=== PATIENT | female | born 1970 | race Caucasian/White ===

== ENCOUNTER 2020-10-14 08:13 | Emergency (ER) | payer BC, OTHER ==
[~2020-10-14] VITALS: Ht 160 cm; Wt 72.5 kg
[2020-10-14] MEDS ORDERED: advil PO (08:41)
[2020-10-14] MEDS ORDERED: BENA25CA4 PO (08:41)
[2020-10-14] MEDS ORDERED: AZIT-12 (08:41)
[2020-10-14] MEDS ORDERED: IBUP200C25 PO (08:42)
[2020-10-14] MEDS ORDERED: LIDOCAINE 5% (LIDODERM) PATCH TD ONE (09:15)
--- NOTE | 2020-10-14 09:29 | REP ---
INDICATION: midline and left low back pain. COMPARISON: None. FINDINGS: Five views of the lumbosacral spine show no acute fracture, dislocation or subluxation. The intervertebral disc spaces are symmetric and well maintained. There is no spondylolysis or spondylolisthesis. The pedicles are intact bilaterally and there is no destructive osseous lesion. IMPRESSION: Unremarkable lumbosacral spine series. <Electronically signed by Taye Chopra > 10/14/20 0934
[2020-10-14] MEDS ORDERED: LIDO5DIS41 TOP (10:08)
[2020-10-14] MEDS ORDERED: CYCL5TAB PO (10:08)
[2020-10-14 10:16] VITALS: BP 136/77
[2020-10-14] MEDS ORDERED: **NOTE PATIENT COMMENT** MISC XX SCH (21:00)
== END 2020-10-14 10:18 | disposition home or self-care (01) ==
LOC: M ED 08:13
DX: S39.012A Strain of muscle, fascia and tendon of lower back, initial encounter (principal); X50.1XXA Overexertion from prolonged static or awkward postures, initial encounter; Y92.89 Other specified places as the place of occurrence of the external cause; M54.9 Dorsalgia, unspecified; K58.9 Irritable bowel syndrome, unspecified; D50.9 Iron deficiency anemia, unspecified; Z87.891 Personal history of nicotine dependence; Z88.0 Allergy status to penicillin; Z88.2 Allergy status to sulfonamides; Z88.8 Allergy status to other drugs, medicaments and biological substances; Z79.899 Other long term (current) drug therapy

== ENCOUNTER → 2021-10-07 | Outpatient (CLI) | payer BC ==
[~2021-10-07] MED LIST: AZIT-12; BENA25CA4 PO; CYCL5TAB PO; IBUP200C25 PO; LIDO5DIS41 TOP; advil PO
[2021-10-07 09:53] LABS: HEMATOCRIT 41.2 % (36.0-47.0); HEMOGLOBIN 13.8 g/dl (12.0-15.5); MEAN CORPUSCULAR HEMOGLOBIN 29.4 pg (27.0-33.0); MEAN CORPUSCULAR HGB CONC 33.5 g/dl (32.0-36.5); MEAN CORPUSCULAR VOLUME 87.7 fl (80.0-96.0); PLATELET COUNT, AUTOMATED 310 10^3/uL (150-450); WHITE BLOOD COUNT 7.9 10^3/uL (4.0-10.0)
[2021-10-07 10:12] LABS: HEMOGLOBIN A1c 5.2 %
[2021-10-07 10:31] LABS: ALBUMIN 3.8 GM/DL (3.2-5.2); ALT/SGPT 30 U/L (12-78); BILIRUBIN,TOTAL 0.3 MG/DL (0.2-1.0); BLOOD UREA NITROGEN 12 MG/DL (7-18); CALCIUM LEVEL 8.9 MG/DL (8.5-10.1); CARBON DIOXIDE LEVEL 26 MEQ/L (21-32); CHLORIDE LEVEL 108 MEQ/L (98-107); CHOLESTEROL LEVEL 200 MG/DL (<200); CHOLESTEROL RISK RATIO 5.714 (<5); CREATININE FOR GFR 0.69 MG/DL (0.55-1.30); GLOMERULAR FILTRATION RATE > 60.0 (>58); GLUCOSE, FASTING 98 MG/DL (70-100); HDL CHOLESTEROL 35 MG/DL (>40); LDL CHOLESTEROL 123 MG/DL (<100); NON-HDL-C 165 MG/DL; POTASSIUM SERUM 3.9 MEQ/L (3.5-5.1); SODIUM LEVEL 141 MEQ/L (136-145); THYROXINE (T4) 8.3 UG/DL (4.5-12.0); TOTAL PROTEIN 6.7 GM/DL (6.4-8.2); TRIGLYCERIDES LEVEL 209 MG/DL (<150)
--- NOTE | 2021-10-07 11:16 | REP ---
INDICATION: ANEMIA / LABS 1ST / EKG 2ND / RAD 3RD. COMPARISON: 08/08/2013 TECHNIQUE: PA lateral FINDINGS: The lung patel are well inflated. The heart, mediastinal hilar contours are normal. The aorta and airway are intact. There is no infiltrate, effusion, atelectasis or mass. Bony thorax shows no focal abnormality. No free air under the diaphragm. IMPRESSION: 1. No acute cardiopulmonary disease. <Electronically signed by Taye Chopra > 10/07/21 1110
--- NOTE | 2021-10-07 15:48 | ECGEPIP ---
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 Electronically Signed on 10-07-2021 15:48:39 EDT by Primo Kumar
[2021-10-09 10:45] LABS: TOTAL 25(OH) VITAMIN D 23.3 NG/ML (30.0-100.0)
[2021-10-09 10:46] LABS: TOTAL T3 128.7 NG/DL (60.0-181.0)
== END ==
LOC: M LAB 09:05
PROVIDERS: ATTEND Family Medicine
DX: D64.9 Anemia, unspecified (principal)

== ENCOUNTER 2021-11-02 08:27 | Inpatient (IN) | payer BC ==
[~2021-11-02] VITALS: Ht 160 cm; Wt 69.5 kg
--- OUTSIDE RECORDS SUMMARY | 2021-11-02 08:33 | CCD | Continuity of Care Document ---
Author Author Edith DELEON MSPT Organization Unknown Address [address] [place] [address] Phone [phone] Care Team Providers Care Hydroelectric Plant Technician Name Role Phone Holly Brothers SAW AUTM [phone] Mahesh Monaco MD AUTM [phone] Faiza Gupta MD AUTM Mahesh Monaco MD AUTM [phone] Problems Active Problems Provider Date Patellar tendonitis Onset: 09/22/1999 Social History Type Date Description Comments Sex Unknown ETOH Use Denies alcohol use Tobacco Use Start: Unknown End: Unknown Patient is a former smoker Smoking Status Reviewed: 08/01/21 Patient is a former smoker Allergies and adverse reactions Active Allergies Criticality Reaction | Severity Comments Date sulfa drugs Unable to assess criticality 07/05/2015 Motrin Unable to assess criticality 07/05/2015 Naproxen Unable to assess criticality 07/05/2015 Aspirin Unable to assess criticality 07/05/2015 Augmentin Unable to assess criticality 04/10/2021 NSAIDS Unable to assess criticality 04/10/2021 Medications Active Medications SIG Qnty Indications Ordering Provide r Date Tylenol With Codeine #3 300-30mg T ablets 1-2 tabs po every 4-6 hours as needed pain after surgery(Please DO Not Fill Until 06/22/2021) 30tabs Flaco Martinez MD 06/22/2021 Euflexxa 20mg/2ML Soln Prefill Syr cecil left knee #1 iid/tf 12/15/2020, left knee #2 iid/sujit,left knee#3 Iid/TF 2/8/21 Zach Cuevas MD 12/15/2020 Fluticasone Propionate 50mcg/Act Suspension Unknown Benzonatate 200mg Capsules Gena Parker PA Albuterol Sulfate HFA 108(90Base) mcg/Act Aerosol Inhale Two Puffs By Mouth Every 4 Hours as Needed Unknown Immunizations Description No Information Available Vital Signs Date Vital Result Comment 09/07/2021 1:38pm Body Temperature 97.1 F Height 63 inches 5'3" Weight 161.50 lb BMI (Body Mass Index) 28.6 kg/m2 06/26/2021 3:18pm Body Temperature 96.9 F Results Test Acquired Date Facility Test Result H/L Range Note Laboratory test finding 05/25/2021 In House Covid Rapid Testing NEGATIVE Procedures Date Code Description Status 10/05/2021 67933 Therapeutic Procedure, Each 15 M inutes Completed 10/05/2021 78860 Therapeutic Procedure, Each 15 M inutes Completed 10/03/2021 18332 Therapeutic Procedure, Each 15 M inutes Completed 10/03/2021 06234 Therapeutic Procedure, Each 15 M inutes Completed 09/26/2021 75056 Therapeutic Procedure, Each 15 M inutes Completed 09/26/2021 49096 Therapeutic Procedure, Each 15 M inutes Completed 09/21/2021 81045 Therapeutic Procedure, Each 15 M inutes Completed 09/21/2021 04145 Therapeutic Procedure, Each 15 M inutes Completed 08/29/2021 79697 Therapeutic Procedure, Each 15 M inutes Completed 08/29/2021 52799 Therapeutic Procedure, Each 15 M inutes Completed 08/24/2021 33239 Electrical Stimulati on Manual, Each 15 Min, Constant Attendance Completed 08/24/2021 46606 Hot Or Cold Packs Completed 08/24/2021 48158 Therapeutic Procedure, Each 15 M inutes Completed 08/24/2021 42235 Therapeutic Procedure, Each 15 M inutes Completed 08/22/2021 73677 Therapeutic Procedure, Each 15 M inutes Completed 08/22/2021 62968 Therapeutic Procedure, Each 15 M inutes Completed 08/22/2021 03770 Electrical Stimulati on Manual, Each 15 Min, Constant Attendance Completed 08/22/2021 27546 Hot Or Cold Packs Completed 08/17/2021 98190 Therapeutic Procedure, Each 15 M inutes Completed 08/17/2021 95989 Therapeutic Procedure, Each 15 M inutes Completed 08/17/2021 98209 Electrical Stimulati on Manual, Each 15 Min, Constant Attendance Completed 08/15/2021 63296 Therapeutic Procedure, Each 15 M inutes Completed 08/15/2021 75804 Hot Or Cold Packs Completed 08/15/2021 71151 Therapeutic Procedure, Each 15 M inutes Completed 08/15/2021 82579 Electrical Stimulati on Manual, Each 15 Min, Constant Attendance Completed 08/10/2021 45260 Therapeutic Procedure, Each 15 M inutes Completed 08/10/2021 42978 Therapeutic Procedure, Each 15 M inutes Completed 08/10/2021 21026 Electrical Stimulati on Manual, Each 15 Min, Constant Attendance Completed 08/10/2021 49469 Hot Or Cold Packs Completed 08/08/2021 28553 Hot Or Cold Packs Completed 08/08/2021 42906 Electrical Stimulati on Manual, Each 15 Min, Constant Attendance Completed 08/08/2021 78409 Therapeutic Procedure, Each 15 M inutes Completed 08/08/2021 70298 Therapeutic Procedure, Each 15 M inutes Completed 08/03/2021 45570 Therapeutic Procedure, Each 15 M inutes Completed 08/03/2021 73375 Therapeutic Procedure, Each 15 M inutes Completed 08/01/2021 98099 Therapeutic Procedure, Each 15 M inutes Completed 08/01/2021 01454 Therapeutic Procedure, Each 15 M inutes Completed 08/01/2021 75430 Electrical Stimulati on Manual, Each 15 Min, Constant Attendance Completed 08/01/2021 03475 Hot Or Cold Packs Completed 07/27/2021 82648 Hot Or Cold Packs Completed 07/27/2021 86135 Electrical Stimulati on Manual, Each 15 Min, Constant Attendance Completed 07/27/2021 24022 Therapeutic Procedure, Each 15 M inutes Completed 07/27/2021 00194 Therapeutic Procedure, Each 15 M inutes Completed 07/25/2021 28173 Therapeutic Procedure, Each 15 M inutes Completed 07/25/2021 13974 Electrical Stimulati on Manual, Each 15 Min, Constant Attendance Completed 07/25/2021 07319 Hot Or Cold Packs Completed 07/25/2021 61072 Therapeutic Procedure, Each 15 M inutes Completed 07/20/2021 38453 Re-Eval Of PT Establ ished Plan Of Care 20Mins Face To Face PT/Fam Completed 07/20/2021 26237 Therapeutic Procedure, Each 15 M inutes Completed 07/20/2021 57666 Therapeutic Procedure, Each 15 M inutes Completed 07/20/2021 46838 Electrical Stimulati on Manual, Each 15 Min, Constant Attendance Completed 07/20/2021 75306 Hot Or Cold Packs Completed 07/18/2021 01325 Therapeutic Procedure, Each 15 M inutes Completed 07/18/2021 84938 Electrical Stimulati on Manual, Each 15 Min, Constant Attendance Completed 07/18/2021 03764 Therapeutic Procedure, Each 15 M inutes Completed 07/13/2021 11656 Therapeutic Procedure, Each 15 M inutes Completed 07/13/2021 12491 Therapeutic Procedure, Each 15 M inutes Completed 07/13/2021 26542 Electrical Stimulati on Manual, Each 15 Min, Constant Attendance Completed 07/13/2021 06452 Hot Or Cold Packs Completed 07/11/2021 82063 Hot Or Cold Packs Completed 07/11/2021 89797 Electrical Stimulati on Manual, Each 15 Min, Constant Attendance Completed 07/11/2021 14636 Therapeutic Procedure, Each 15 M inutes Completed 07/11/2021 60198 Therapeutic Procedure, Each 15 M inutes Completed 07/06/2021 42959 Therapeutic Procedure, Each 15 M inutes Completed 07/06/2021 55377 Therapeutic Procedure, Each 15 M inutes Completed 07/06/2021 43366 Electrical Stimulati on Manual, Each 15 Min, Constant Attendance Completed 07/06/2021 39547 Hot Or Cold Packs Completed 07/04/2021 19540 Manual Therapy Each 15 Minutes C ompleted 07/04/2021 08241 Therapeutic Procedure, Each 15 M inutes Completed 07/04/2021 99566 Therapeutic Procedure, Each 15 M inutes Completed 07/04/2021 97539 Hot Or Cold Packs Completed 06/30/2021 89904 Therapeutic Procedure, Each 15 M inutes Completed 06/30/2021 74019 Hot Or Cold Packs Completed 06/30/2021 76558 Electrical Stimulati on Manual, Each 15 Min, Constant Attendance Completed 06/30/2021 39997 Therapeutic Procedure, Each 15 M inutes Completed 06/28/2021 55365 Therapeutic Procedure, Each 15 M inutes Completed 06/28/2021 05839 Therapeutic Procedure, Each 15 M inutes Completed 06/28/2021 35949 Electrical Stimulati on Manual, Each 15 Min, Constant Attendance Completed 06/28/2021 23238 Hot Or Cold Packs Completed 06/26/2021 57320 Physical Therapy Eval - Low Comp lexity Completed 06/22/2021 99861 Arthroscopy Knee W/M eniscectomy Inc Chondroplasty (Med Or Lateral Completed 04/10/2021 83932 Office/Outpatient Established Mo d MDM 30-39 Min Completed Medical Devices Description No Information Available Encounters Type Date Location Provider Dx Diagnosis Office Visit 09/07/2021 1:15p Alfred Chin PA-C Z4 7.89 Encounter for other orthopedic aftercare M25.562 Pain in left knee Office Visit 08/24/2021 5:15p Alfred Chin PA-C Z4 7.89 Encounter for other orthopedic aftercare M25.562 Pain in left knee Office Visit 08/01/2021 5:15p Alfred Chin PA-C Z4 7.89 Encounter for other orthopedic aftercare Office Visit 07/03/2021 4:30p Alfred Chin PA-C Z4 7.89 Encounter for other orthopedic aftercare Office Visit 06/26/2021 3:15p Alfred Martinez MD Z47.89 Encounter for other orthopedic aftercare Office Visit 04/10/2021 2:15p Alfred Martinez MD M17.12 Unilateral primary osteoarthritis, left knee M94.262 Chondromalacia, left knee Assessments Date Code Description Provider 10/05/2021 M25.562 Pain in left knee Madonna izquierdo, BAUDILIO 10/05/2021 Z47.89 Encounter for other orthopedic a ftercare Madonna Deleon, BAUDILIO 10/03/2021 M25.562 Pain in left knee Madonna izquierdo, MSPT 10/03/2021 Z47.89 Encounter for other orthopedic a ftercare Madonna Deleon, MSPT 09/26/2021 M25.562 Pain in left knee Madonna Van felecia, MSPT 09/26/2021 Z47.89 Encounter for other orthopedic a ftercare Madonna Deleon, MSPT 09/21/2021 M25.562 Pain in left knee Madonna Van felecia, MSPT 09/21/2021 Z47.89 Encounter for other orthopedic a ftercare Madonna Deleon, MSPT 09/07/2021 Z47.89 Encounter for other orthopedic a ftercare Jimenez Chin PA-C 09/07/2021 M25.562 Pain in left knee Jimenez polo PA-C 08/29/2021 M25.562 Pain in left knee Madonna Menon Rehan izuqierdo, MSPT 08/29/2021 Z47.89 Encounter for other orthopedic a ftercare Madonna Deleon, MSPT 08/24/2021 Z47.89 Encounter for other orthopedic a ftercare Jimenez Chin PA-C 08/24/2021 M25.562 Pain in left knee Jimenez polo PA-C 08/24/2021 Z47.89 Encounter for other orthopedic a ftercare Madonna Deleon, MSPT 08/22/2021 Z47.89 Encounter for other orthopedic a ftercare Madonna Deleon, MSPT 08/17/2021 Z47.89 Encounter for other orthopedic a ftercare Júnior Damon P.T. 08/15/2021 Z47.89 Encounter for other orthopedic a ftercare Madonna Deleon, MSPT 08/10/2021 Z47.89 Encounter for other orthopedic a ftercare Madonna Deleon, MSPT 08/08/2021 Z47.89 Encounter for other orthopedic a ftercare Madonna Deleon, MSPT 08/03/2021 Z47.89 Encounter for other orthopedic a ftercare Madonna Deleon, MSPT 08/01/2021 Z47.89 Encounter for other orthopedic a ftercare Jimenez Chin PA-C 08/01/2021 Z47.89 Encounter for other orthopedic a ftercare Madonna M. Vespa, MSPT 07/27/2021 Z47.89 Encounter for other orthopedic a ftercare Madonna M. Vespa, MSPT 07/25/2021 Z47.89 Encounter for other orthopedic a ftercare Júnior Damon P.T. 07/20/2021 Z47.89 Encounter for other orthopedic a ftercare Madonna M. Vespa, MSPT 07/18/2021 Z47.89 Encounter for other orthopedic a ftercare Madonna M. Vespa, MSPT 07/13/2021 Z47.89 Encounter for other orthopedic a ftercare [facility] 07/11/2021 Z47.89 Encounter for other orthopedic a ftercare Madonna M. Vespa, MSPT 07/06/2021 Z47.89 Encounter for other orthopedic a ftercare Madonna M. Vespa, MSPT 07/04/2021 Z47.89 Encounter for other orthopedic a ftercare Madonna M. Vespa, MSPT 07/03/2021 Z47.89 Encounter for other orthopedic a ftercare Jimenez Chin PA-C 06/30/2021 Z47.89 Encounter for other orthopedic a ftercare Madonna M. Vespa, MSPT 06/28/2021 Z47.89 Encounter for other orthopedic a ftercare Madonna M. Vespa, MSPT 06/26/2021 Z47.89 Encounter for other orthopedic a ftercare Madonna M. Vespa, MSPT 06/26/2021 Z47.89 Encounter for other orthopedic a ftercare Flaco Martinez MD 06/22/2021 M23.262 Derangement of other lateral meniscus due to old tear or injury, left knee Flaco Martinez MD 06/22/2021 L90.5 Scar conditions and fibrosis of skin Flaco Martinez MD 06/19/2021 M23.262 Derangement of other lateral meniscus due to old tear or injury, left knee Flaco Martinez MD 06/19/2021 Z01.818 Encounter for other preprocedura l examination Flaco Martinez MD 06/19/2021 Z01.818 Encounter for other preprocedura l examination Lab 06/19/2021 Z20.828 Contact with and (sultana spected) exposure to other viral communicable diseases Flaco Martinez MD 06/19/2021 Z20.828 Contact with and (sultana spected) exposure to other viral communicable diseases Lab 05/25/2021 Z20.828 Contact with and (sultana spected) exposure to other viral communicable diseases Flaco Martinez MD 04/10/2021 M17.12 Unilateral primary osteoarthriti s, left knee Flaco Martinez MD 04/10/2021 M94.262 Chondromalacia, left knee Flaco Martinez MD Plan of Treatment Future Appointment(s):* 10/12/2021 4:30 pm - MINDY AlvesT at Physical Therapy * 10/10/2021 4:30 pm - MINDY AlvesT at Physical Therapy Functional Status Description No Information Available Mental Status Description No Information Available Referrals Refer to Reason for Referral Status Appt Date January Cuevas MD PT LT KNEE WRITTEN AUTH PASSED TO PT DE PT. LS Created [facility] [address] [phone] Jimenez Chin, PA-C PT LT KNEE OK TO [facility] 2ND SET AFTER SURGERY. PASSED TO PT DEPT. LS Created [address] [place] [address] [phone] Flaco Martinez MD PT LT KNEE OK TO [facility] 1ST SET AFTER SURGERY. L S Created [facility] [address] [address] [phone] Flaco Martinez MD CRUTCHES OK TO SUPPLY HERE. LS Created [facility] [place] [id number] [phone] Flaco Martinez MD SURGERY LT KNEE DX ARTHROSCO PY WRITTEN AUTH PASSED TO SURGERY. LS Created [facility] [place] [address] [phone]
--- OUTSIDE RECORDS SUMMARY | 2021-11-02 08:33 | CCD | Continuity of Care Document ---
Author Author Edith DELEON MSPT Organization Unknown Address [address] [place] [address] Phone [phone] Care Team Providers Care Culvert Installer Name Role Phone Holly Brothers SAW AUTM [phone] Mahesh Monaco MD AUTM [phone] Faiza Gupta MD AUTM Mahesh Monaco MD AUTM [phone] Problems Active Problems Provider Date Patellar tendonitis [...] NEGATIVE Procedures Date Code Description Status 10/05/2021 09472 Therapeutic Procedure, Each 15 M inutes Completed 10/05/2021 91294 Therapeutic Procedure, Each 15 M inutes Completed 10/03/2021 79042 Therapeutic Procedure, Each 15 M inutes Completed 10/03/2021 48438 Therapeutic Procedure, Each 15 M inutes Completed 09/26/2021 76989 Therapeutic Procedure, Each 15 M inutes Completed 09/26/2021 88326 Therapeutic Procedure, Each 15 M inutes Completed 09/21/2021 50533 Therapeutic Procedure, Each 15 M inutes Completed 09/21/2021 88570 Therapeutic Procedure, Each 15 M inutes Completed 08/29/2021 75652 Therapeutic Procedure, Each 15 M inutes Completed 08/29/2021 27014 Therapeutic Procedure, Each 15 M inutes Completed 08/24/2021 60337 Electrical Stimulati on Manual, Each 15 Min, Constant Attendance Completed 08/24/2021 08520 Hot Or Cold Packs Completed 08/24/2021 65889 Therapeutic Procedure, Each 15 M inutes Completed 08/24/2021 08254 Therapeutic Procedure, Each 15 M inutes Completed 08/22/2021 55775 Therapeutic Procedure, Each 15 M inutes Completed 08/22/2021 92754 Therapeutic Procedure, Each 15 M inutes Completed 08/22/2021 79849 Electrical Stimulati on Manual, Each 15 Min, Constant Attendance Completed 08/22/2021 03626 Hot Or Cold Packs Completed 08/17/2021 40806 Therapeutic Procedure, Each 15 M inutes Completed 08/17/2021 80712 Therapeutic Procedure, Each 15 M inutes Completed 08/17/2021 50115 Electrical Stimulati on Manual, Each 15 Min, Constant Attendance Completed 08/15/2021 92486 Therapeutic Procedure, Each 15 M inutes Completed 08/15/2021 01300 Hot Or Cold Packs Completed 08/15/2021 68067 Therapeutic Procedure, Each 15 M inutes Completed 08/15/2021 81320 Electrical Stimulati on Manual, Each 15 Min, Constant Attendance Completed 08/10/2021 91492 Therapeutic Procedure, Each 15 M inutes Completed 08/10/2021 90285 Therapeutic Procedure, Each 15 M inutes Completed 08/10/2021 53043 Electrical Stimulati on Manual, Each 15 Min, Constant Attendance Completed 08/10/2021 65809 Hot Or Cold Packs Completed 08/08/2021 97165 Hot Or Cold Packs Completed 08/08/2021 71787 Electrical Stimulati on Manual, Each 15 Min, Constant Attendance Completed 08/08/2021 30506 Therapeutic Procedure, Each 15 M inutes Completed 08/08/2021 44700 Therapeutic Procedure, Each 15 M inutes Completed 08/03/2021 05945 Therapeutic Procedure, Each 15 M inutes Completed 08/03/2021 58566 Therapeutic Procedure, Each 15 M inutes Completed 08/01/2021 31265 Therapeutic Procedure, Each 15 M inutes Completed 08/01/2021 45786 Therapeutic Procedure, Each 15 M inutes Completed 08/01/2021 82312 Electrical Stimulati on Manual, Each 15 Min, Constant Attendance Completed 08/01/2021 59476 Hot Or Cold Packs Completed 07/27/2021 27868 Hot Or Cold Packs Completed 07/27/2021 49186 Electrical Stimulati on Manual, Each 15 Min, Constant Attendance Completed 07/27/2021 26778 Therapeutic Procedure, Each 15 M inutes Completed 07/27/2021 83462 Therapeutic Procedure, Each 15 M inutes Completed 07/25/2021 48114 Therapeutic Procedure, Each 15 M inutes Completed 07/25/2021 16496 Electrical Stimulati on Manual, Each 15 Min, Constant Attendance Completed 07/25/2021 70324 Hot Or Cold Packs Completed 07/25/2021 49438 Therapeutic Procedure, Each 15 M inutes Completed 07/20/2021 83662 Re-Eval Of PT Establ ished Plan Of Care 20Mins Face To Face PT/Fam Completed 07/20/2021 50270 Therapeutic Procedure, Each 15 M inutes Completed 07/20/2021 72343 Therapeutic Procedure, Each 15 M inutes Completed 07/20/2021 06856 Electrical Stimulati on Manual, Each 15 Min, Constant Attendance Completed 07/20/2021 53830 Hot Or Cold Packs Completed 07/18/2021 22248 Therapeutic Procedure, Each 15 M inutes Completed 07/18/2021 83595 Electrical Stimulati on Manual, Each 15 Min, Constant Attendance Completed 07/18/2021 77128 Therapeutic Procedure, Each 15 M inutes Completed 07/13/2021 90705 Therapeutic Procedure, Each 15 M inutes Completed 07/13/2021 80485 Therapeutic Procedure, Each 15 M inutes Completed 07/13/2021 80643 Electrical Stimulati on Manual, Each 15 Min, Constant Attendance Completed 07/13/2021 72874 Hot Or Cold Packs Completed 07/11/2021 37289 Hot Or Cold Packs Completed 07/11/2021 97605 Electrical Stimulati on Manual, Each 15 Min, Constant Attendance Completed 07/11/2021 99134 Therapeutic Procedure, Each 15 M inutes Completed 07/11/2021 25195 Therapeutic Procedure, Each 15 M inutes Completed 07/06/2021 07626 Therapeutic Procedure, Each 15 M inutes Completed 07/06/2021 00271 Therapeutic Procedure, Each 15 M inutes Completed 07/06/2021 23689 Electrical Stimulati on Manual, Each 15 Min, Constant Attendance Completed 07/06/2021 01157 Hot Or Cold Packs Completed 07/04/2021 82131 Manual Therapy Each 15 Minutes C ompleted 07/04/2021 91958 Therapeutic Procedure, Each 15 M inutes Completed 07/04/2021 16444 Therapeutic Procedure, Each 15 M inutes Completed 07/04/2021 18128 Hot Or Cold Packs Completed 06/30/2021 69951 Therapeutic Procedure, Each 15 M inutes Completed 06/30/2021 38160 Hot Or Cold Packs Completed 06/30/2021 31847 Electrical Stimulati on Manual, Each 15 Min, Constant Attendance Completed 06/30/2021 47341 Therapeutic Procedure, Each 15 M inutes Completed 06/28/2021 53492 Therapeutic Procedure, Each 15 M inutes Completed 06/28/2021 46015 Therapeutic Procedure, Each 15 M inutes Completed 06/28/2021 74405 Electrical Stimulati on Manual, Each 15 Min, Constant Attendance Completed 06/28/2021 21571 Hot Or Cold Packs Completed 06/26/2021 71701 Physical Therapy Eval - Low Comp lexity Completed 06/22/2021 30206 Arthroscopy Knee W/M eniscectomy Inc Chondroplasty (Med Or Lateral Completed 04/10/2021 83801 Office/Outpatient Established Mo d MDM 30-39 Min [...] Pain in left knee Madonna Menon Rehan izquierdo, MSPT 08/29/2021 Z47.89 Encounter for other orthopedic [...] other orthopedic a ftercare Madonna M. Vespa, RUSTT 07/11/2021 Z47.89 Encounter for other orthopedic a [...] PASSED TO PT DE PT. LS Created [facility] [address] [phone] Jimenez Chin, PA-C PT LT KNEE OK TO [facility] 2ND SET AFTER SURGERY. PASSED TO PT DEPT. LS Created [address] [place] [address] [phone] Flaco Martinez MD PT LT KNEE OK TO [facility] 1ST SET AFTER SURGERY. L S Created [facility] [address] [address] [phone] Flaco Martinez MD CRUTCHES OK TO SUPPLY HERE. LS Created [facility] [place] [phone] Flaco Martinez MD SURGERY LT KNEE DX ARTHROSCO PY WRITTEN AUTH PASSED TO SURGERY. LS Created [facility] [place] [address] [phone]
--- OUTSIDE RECORDS SUMMARY | 2021-11-02 08:33 | CCD | Continuity of Care Document ---
Author Author Edith DELEON MSPT Organization Unknown Address [address] [place] [address] Phone [phone] Care Team Providers Care Handicapper [employer] Name Role Phone [employer] SAW AUTM [phone] Mahesh Monaco MD AUTM [phone] Faiza Gupta MD AUTM [phone] Mahesh Monaco MD AUTM [phone] Problems Active Problems Provider Date Patellar tendonitis [...] Testing NEGATIVE Procedures Date Code Description Status 10/12/2021 83401 Therapeutic Procedure, Each 15 M inutes Completed 10/12/2021 88312 Therapeutic Procedure, Each 15 M inutes Completed 10/10/2021 15108 Therapeutic Procedure, Each 15 M inutes Completed 10/10/2021 34535 Therapeutic Procedure, Each 15 M inutes Completed 10/05/2021 13672 Therapeutic Procedure, Each 15 M inutes Completed 10/05/2021 84438 Therapeutic Procedure, Each 15 M inutes Completed 10/03/2021 32157 Therapeutic Procedure, Each 15 M inutes Completed 10/03/2021 99318 Therapeutic Procedure, Each 15 M inutes Completed 09/26/2021 76168 Therapeutic Procedure, Each 15 M inutes Completed 09/26/2021 64446 Therapeutic Procedure, Each 15 M inutes Completed 09/21/2021 81426 Therapeutic Procedure, Each 15 M inutes Completed 09/21/2021 37389 Therapeutic Procedure, Each 15 M inutes Completed 08/29/2021 54081 Therapeutic Procedure, Each 15 M inutes Completed 08/29/2021 96864 Therapeutic Procedure, Each 15 M inutes Completed 08/24/2021 80204 Therapeutic Procedure, Each 15 M inutes Completed 08/24/2021 46219 Therapeutic Procedure, Each 15 M inutes Completed 08/24/2021 42288 Electrical Stimulati on Manual, Each 15 Min, Constant Attendance Completed 08/24/2021 87398 Hot Or Cold Packs Completed 08/22/2021 78320 Electrical Stimulati on Manual, Each 15 Min, Constant Attendance Completed 08/22/2021 72149 Hot Or Cold Packs Completed 08/22/2021 83934 Therapeutic Procedure, Each 15 M inutes Completed 08/22/2021 26580 Therapeutic Procedure, Each 15 M inutes Completed 08/17/2021 82928 Therapeutic Procedure, Each 15 M inutes Completed 08/17/2021 73752 Therapeutic Procedure, Each 15 M inutes Completed 08/17/2021 87922 Electrical Stimulati on Manual, Each 15 Min, Constant Attendance Completed 08/15/2021 22906 Therapeutic Procedure, Each 15 M inutes Completed 08/15/2021 49593 Therapeutic Procedure, Each 15 M inutes Completed 08/15/2021 98652 Electrical Stimulati on Manual, Each 15 Min, Constant Attendance Completed 08/15/2021 03367 Hot Or Cold Packs Completed 08/10/2021 07004 Therapeutic Procedure, Each 15 M inutes Completed 08/10/2021 34174 Hot Or Cold Packs Completed 08/10/2021 81498 Electrical Stimulati on Manual, Each 15 Min, Constant Attendance Completed 08/10/2021 13949 Therapeutic Procedure, Each 15 M inutes Completed 08/08/2021 06878 Therapeutic Procedure, Each 15 M inutes Completed 08/08/2021 14490 Therapeutic Procedure, Each 15 M inutes Completed 08/08/2021 22503 Electrical Stimulati on Manual, Each 15 Min, Constant Attendance Completed 08/08/2021 96135 Hot Or Cold Packs Completed 08/03/2021 33657 Therapeutic Procedure, Each 15 M inutes Completed 08/03/2021 53979 Therapeutic Procedure, Each 15 M inutes Completed 08/01/2021 71846 Hot Or Cold Packs Completed 08/01/2021 67864 Electrical Stimulati on Manual, Each 15 Min, Constant Attendance Completed 08/01/2021 28085 Therapeutic Procedure, Each 15 M inutes Completed 08/01/2021 88556 Therapeutic Procedure, Each 15 M inutes Completed 07/27/2021 21016 Therapeutic Procedure, Each 15 M inutes Completed 07/27/2021 56075 Therapeutic Procedure, Each 15 M inutes Completed 07/27/2021 42924 Electrical Stimulati on Manual, Each 15 Min, Constant Attendance Completed 07/27/2021 54395 Hot Or Cold Packs Completed 07/25/2021 75752 Therapeutic Procedure, Each 15 M inutes Completed 07/25/2021 46770 Therapeutic Procedure, Each 15 M inutes Completed 07/25/2021 10472 Electrical Stimulati on Manual, Each 15 Min, Constant Attendance Completed 07/25/2021 81240 Hot Or Cold Packs Completed 07/20/2021 74711 Therapeutic Procedure, Each 15 M inutes Completed 07/20/2021 33379 Hot Or Cold Packs Completed 07/20/2021 77108 Electrical Stimulati on Manual, Each 15 Min, Constant Attendance Completed 07/20/2021 09168 Therapeutic Procedure, Each 15 M inutes Completed 07/20/2021 59699 Re-Eval Of PT Establ ished Plan Of Care 20Mins Face To Face PT/Fam Completed 07/18/2021 28770 Therapeutic Procedure, Each 15 M inutes Completed 07/18/2021 79477 Therapeutic Procedure, Each 15 M inutes Completed 07/18/2021 92906 Electrical Stimulati on Manual, Each 15 Min, Constant Attendance Completed 07/13/2021 27232 Therapeutic Procedure, Each 15 M inutes Completed 07/13/2021 91418 Therapeutic Procedure, Each 15 M inutes Completed 07/13/2021 17458 Electrical Stimulati on Manual, Each 15 Min, Constant Attendance Completed 07/13/2021 05113 Hot Or Cold Packs Completed 07/11/2021 45988 Therapeutic Procedure, Each 15 M inutes Completed 07/11/2021 42741 Hot Or Cold Packs Completed 07/11/2021 30469 Therapeutic Procedure, Each 15 M inutes Completed 07/11/2021 25926 Electrical Stimulati on Manual, Each 15 Min, Constant Attendance Completed 07/06/2021 10326 Therapeutic Procedure, Each 15 M inutes Completed 07/06/2021 30937 Therapeutic Procedure, Each 15 M inutes Completed 07/06/2021 25001 Electrical Stimulati on Manual, Each 15 Min, Constant Attendance Completed 07/06/2021 37876 Hot Or Cold Packs Completed 07/04/2021 72904 Manual Therapy Each 15 Minutes C ompleted 07/04/2021 98592 Therapeutic Procedure, Each 15 M inutes Completed 07/04/2021 33426 Therapeutic Procedure, Each 15 M inutes Completed 07/04/2021 45365 Hot Or Cold Packs Completed 06/30/2021 39200 Therapeutic Procedure, Each 15 M inutes Completed 06/30/2021 12268 Hot Or Cold Packs Completed 06/30/2021 47776 Electrical Stimulati on Manual, Each 15 Min, Constant Attendance Completed 06/30/2021 43179 Therapeutic Procedure, Each 15 M inutes Completed 06/28/2021 31879 Therapeutic Procedure, Each 15 M inutes Completed 06/28/2021 29497 Therapeutic Procedure, Each 15 M inutes Completed 06/28/2021 99364 Electrical Stimulati on Manual, Each 15 Min, Constant Attendance Completed 06/28/2021 59325 Hot Or Cold Packs Completed 06/26/2021 42278 Physical Therapy Eval - Low Comp lexity Completed 06/22/2021 88341 Arthroscopy Knee W/M eniscectomy Inc Chondroplasty (Med Or Lateral Completed Medical Devices Description No Information Available [...] MD Z47.89 Encounter for other orthopedic aftercare Assessments Date Code Description Provider 10/12/2021 M25.562 Pain in left knee BAUDILIO Sosa 10/12/2021 Z47.89 Encounter for other orthopedic a ftercare BAUDILIO Alves 10/10/2021 M25.562 Pain in left knee MINDY SosaT 10/10/2021 Z47.89 Encounter for other orthopedic a ftercare Madonna Deleon, MSPT 10/05/2021 M25.562 Pain in left knee Madonna Van pa, MSPT 10/05/2021 Z47.89 Encounter for other orthopedic a ftercare Madonna Deleon, MSPT 10/03/2021 M25.562 Pain in left knee Madonna Van pa, MSPT 10/03/2021 Z47.89 Encounter for other orthopedic a ftercare Madonna Deleon, MSPT 09/26/2021 M25.562 Pain in left knee Madonna Van pa, MSPT 09/26/2021 Z47.89 Encounter for other orthopedic a ftercare Madonna Deleon, MSPT 09/21/2021 M25.562 Pain in left knee Madonna Van felecia, MSPT 09/21/2021 Z47.89 Encounter for other orthopedic a ftercare Madonna Deleon, MSPT 09/07/2021 Z47.89 Encounter for other orthopedic a ftercare Jimenez Chin PA-C 09/07/2021 M25.562 Pain in left knee Jimenez polo PA-C 08/29/2021 M25.562 Pain in left knee Madonna Van felecia, MSPT 08/29/2021 Z47.89 Encounter for other orthopedic [...] orthopedic a ftercare Madonna M. Vespa, MSPT 08/08/2021 Z47.89 Encounter for other orthopedic a ftercare Madonna M. Vespa, MSPT 08/03/2021 Z47.89 Encounter for other orthopedic a ftercare Madonna M. Vespa, MSPT 08/01/2021 Z47.89 Encounter for other orthopedic [...] orthopedic a ftercare Madonna M. Vespa, MSPT 07/11/2021 Z47.89 Encounter for other orthopedic a [...] diseases Lab 05/25/2021 Z20.828 Contact with and (slutana spected) exposure to other viral communicable diseases Flaco Martinez MD Plan of Treatment No Information Available Functional Status Description No Information Available Mental Status Description No Information Available Referrals Refer to Reason for Referral Status Appt Date Daniel Reis MD MRI LT KNEE WRITTEN AUTH FOR DX PURPOSES. PASSED TO XRAY. Created [facility] [place] [address] [phone] January Cuevas MD PT LT KNEE WRITTEN AUTH PASSED TO PT DE PT. Created [facility] [place] [address] [phone] Jimenez Chin PA-C PT LT KNEE OK TO [facility] 2ND SET AFTER SURGERY. PASSED TO PT DEPT. LS Created [facility] [place] [address] [phone] Flaco Martinez MD PT LT KNEE OK TO [facility] 1ST SET AFTER SURGERY. L S Created [facility], [place] [address] [phone] Flaco Martinez MD CRUTCHES OK TO SUPPLY HERE. LS Created [facility] [address] [address] [phone] Flaco Martinez MD SURGERY LT KNEE DX ARTHROSCO PY WRITTEN AUTH PASSED TO SURGERY. LS Created [address] [facility], [address] [place] [address] [phone]
--- OUTSIDE RECORDS SUMMARY | 2021-11-02 08:33 | CCD | Continuity of Care Document ---
Author Author Edith DELEON MSPT Organization Unknown Address [address] [place] [address] Phone [phone] Care Team Providers Care Train Examiner Name Role Phone [employer] SAW AUTM [phone] Mahesh Monaco MD AUTM [phone] Faiza Gupta MD AUTM Mahesh Monaco MD AUTM [phone] Problems Active Problems Provider Date Patellar tendonitis [...] NEGATIVE Procedures Date Code Description Status 10/05/2021 53842 Therapeutic Procedure, Each 15 M inutes Completed 10/05/2021 75400 Therapeutic Procedure, Each 15 M inutes Completed 10/03/2021 46307 Therapeutic Procedure, Each 15 M inutes Completed 10/03/2021 95878 Therapeutic Procedure, Each 15 M inutes Completed 09/26/2021 00109 Therapeutic Procedure, Each 15 M inutes Completed 09/26/2021 74798 Therapeutic Procedure, Each 15 M inutes Completed 09/21/2021 72268 Therapeutic Procedure, Each 15 M inutes Completed 09/21/2021 49997 Therapeutic Procedure, Each 15 M inutes Completed 08/29/2021 55772 Therapeutic Procedure, Each 15 M inutes Completed 08/29/2021 62297 Therapeutic Procedure, Each 15 M inutes Completed 08/24/2021 50069 Electrical Stimulati on Manual, Each 15 Min, Constant Attendance Completed 08/24/2021 12997 Hot Or Cold Packs Completed 08/24/2021 40475 Therapeutic Procedure, Each 15 M inutes Completed 08/24/2021 37441 Therapeutic Procedure, Each 15 M inutes Completed 08/22/2021 34560 Therapeutic Procedure, Each 15 M inutes Completed 08/22/2021 92822 Therapeutic Procedure, Each 15 M inutes Completed 08/22/2021 77582 Electrical Stimulati on Manual, Each 15 Min, Constant Attendance Completed 08/22/2021 24460 Hot Or Cold Packs Completed 08/17/2021 04670 Therapeutic Procedure, Each 15 M inutes Completed 08/17/2021 14005 Therapeutic Procedure, Each 15 M inutes Completed 08/17/2021 46799 Electrical Stimulati on Manual, Each 15 Min, Constant Attendance Completed 08/15/2021 66240 Therapeutic Procedure, Each 15 M inutes Completed 08/15/2021 10276 Hot Or Cold Packs Completed 08/15/2021 00189 Therapeutic Procedure, Each 15 M inutes Completed 08/15/2021 14573 Electrical Stimulati on Manual, Each 15 Min, Constant Attendance Completed 08/10/2021 51025 Therapeutic Procedure, Each 15 M inutes Completed 08/10/2021 45584 Therapeutic Procedure, Each 15 M inutes Completed 08/10/2021 48312 Electrical Stimulati on Manual, Each 15 Min, Constant Attendance Completed 08/10/2021 64225 Hot Or Cold Packs Completed 08/08/2021 74827 Hot Or Cold Packs Completed 08/08/2021 86168 Electrical Stimulati on Manual, Each 15 Min, Constant Attendance Completed 08/08/2021 73562 Therapeutic Procedure, Each 15 M inutes Completed 08/08/2021 34863 Therapeutic Procedure, Each 15 M inutes Completed 08/03/2021 00656 Therapeutic Procedure, Each 15 M inutes Completed 08/03/2021 22465 Therapeutic Procedure, Each 15 M inutes Completed 08/01/2021 18201 Therapeutic Procedure, Each 15 M inutes Completed 08/01/2021 25444 Therapeutic Procedure, Each 15 M inutes Completed 08/01/2021 09694 Electrical Stimulati on Manual, Each 15 Min, Constant Attendance Completed 08/01/2021 27899 Hot Or Cold Packs Completed 07/27/2021 03816 Hot Or Cold Packs Completed 07/27/2021 15678 Electrical Stimulati on Manual, Each 15 Min, Constant Attendance Completed 07/27/2021 38949 Therapeutic Procedure, Each 15 M inutes Completed 07/27/2021 11428 Therapeutic Procedure, Each 15 M inutes Completed 07/25/2021 16087 Therapeutic Procedure, Each 15 M inutes Completed 07/25/2021 42985 Electrical Stimulati on Manual, Each 15 Min, Constant Attendance Completed 07/25/2021 98851 Hot Or Cold Packs Completed 07/25/2021 90321 Therapeutic Procedure, Each 15 M inutes Completed 07/20/2021 87806 Re-Eval Of PT Establ ished Plan Of Care 20Mins Face To Face PT/Fam Completed 07/20/2021 04591 Therapeutic Procedure, Each 15 M inutes Completed 07/20/2021 23396 Therapeutic Procedure, Each 15 M inutes Completed 07/20/2021 99756 Electrical Stimulati on Manual, Each 15 Min, Constant Attendance Completed 07/20/2021 74529 Hot Or Cold Packs Completed 07/18/2021 80850 Therapeutic Procedure, Each 15 M inutes Completed 07/18/2021 68341 Electrical Stimulati on Manual, Each 15 Min, Constant Attendance Completed 07/18/2021 92483 Therapeutic Procedure, Each 15 M inutes Completed 07/13/2021 85368 Therapeutic Procedure, Each 15 M inutes Completed 07/13/2021 17013 Therapeutic Procedure, Each 15 M inutes Completed 07/13/2021 65717 Electrical Stimulati on Manual, Each 15 Min, Constant Attendance Completed 07/13/2021 10046 Hot Or Cold Packs Completed 07/11/2021 33501 Hot Or Cold Packs Completed 07/11/2021 31105 Electrical Stimulati on Manual, Each 15 Min, Constant Attendance Completed 07/11/2021 90353 Therapeutic Procedure, Each 15 M inutes Completed 07/11/2021 64234 Therapeutic Procedure, Each 15 M inutes Completed 07/06/2021 63936 Therapeutic Procedure, Each 15 M inutes Completed 07/06/2021 60489 Therapeutic Procedure, Each 15 M inutes Completed 07/06/2021 94384 Electrical Stimulati on Manual, Each 15 Min, Constant Attendance Completed 07/06/2021 15423 Hot Or Cold Packs Completed 07/04/2021 40112 Manual Therapy Each 15 Minutes C ompleted 07/04/2021 97473 Therapeutic Procedure, Each 15 M inutes Completed 07/04/2021 18120 Therapeutic Procedure, Each 15 M inutes Completed 07/04/2021 40730 Hot Or Cold Packs Completed 06/30/2021 12428 Therapeutic Procedure, Each 15 M inutes Completed 06/30/2021 71975 Hot Or Cold Packs Completed 06/30/2021 42591 Electrical Stimulati on Manual, Each 15 Min, Constant Attendance Completed 06/30/2021 73827 Therapeutic Procedure, Each 15 M inutes Completed 06/28/2021 35037 Therapeutic Procedure, Each 15 M inutes Completed 06/28/2021 45368 Therapeutic Procedure, Each 15 M inutes Completed 06/28/2021 27717 Electrical Stimulati on Manual, Each 15 Min, Constant Attendance Completed 06/28/2021 93833 Hot Or Cold Packs Completed 06/26/2021 92294 Physical Therapy Eval - Low Comp lexity Completed 06/22/2021 08900 Arthroscopy Knee W/M eniscectomy Inc Chondroplasty (Med Or Lateral Completed 04/10/2021 44963 Office/Outpatient Established Mo d MDM 30-39 Min [...] Z47.89 Encounter for other orthopedic a ftercare Madonan M. Vespa, MSPT 07/18/2021 Z47.89 Encounter for other orthopedic a ftercare Madonna M. Vespa, MSPT 07/13/2021 Z47.89 Encounter for other orthopedic a ftercare [facility]. Vespa, [facility] 07/11/2021 Z47.89 Encounter for other orthopedic a [...] TO PT DE PT. LS Created [facility] [address] [id number] [phone] Jimenez Chin, PA-C PT LT KNEE OK TO [facility] 2ND SET AFTER SURGERY. PASSED TO PT DEPT. LS Created [address] [place] [address] [phone] Flaco Martinez MD PT LT KNEE OK TO [facility] 1ST SET AFTER SURGERY. L S Created [facility] [address] [address] [phone] Flaco Martinez MD CRUTCHES OK TO SUPPLY HERE. LS Created [facility] [place] [id number] [phone] Flaco Martinez MD SURGERY LT KNEE DX ARTHROSCO PY WRITTEN AUTH PASSED TO SURGERY. LS [place] [address] [phone]
--- OUTSIDE RECORDS SUMMARY | 2021-11-02 08:33 | CCD | Continuity of Care Document ---
Author Author Edith YO MSPT Organization Unknown Address [address] [place] [phone] Phone [phone] Care Team Providers Care Clinical Scientist Name Role Phone Holly Brothers SAW AUTM [phone] Mahesh Monaco MD AUTM [phone] Faiza Gupta MD AUTM [phone] Mahesh Monaco MD AUTM [phone] Problems Active Problems Provider Date Patellar tendonitis [...] Testing NEGATIVE Procedures Date Code Description Status 10/03/2021 84030 Therapeutic Procedure, Each 15 M inutes Completed 10/03/2021 72455 Therapeutic Procedure, Each 15 M inutes Completed 09/26/2021 60282 Therapeutic Procedure, Each 15 M inutes Completed 09/26/2021 68173 Therapeutic Procedure, Each 15 M inutes Completed 09/21/2021 51258 Therapeutic Procedure, Each 15 M inutes Completed 09/21/2021 85801 Therapeutic Procedure, Each 15 M inutes Completed 08/29/2021 91325 Therapeutic Procedure, Each 15 M inutes Completed 08/29/2021 25046 Therapeutic Procedure, Each 15 M inutes Completed 08/24/2021 45201 Electrical Stimulati on Manual, Each 15 Min, Constant Attendance Completed 08/24/2021 16283 Hot Or Cold Packs Completed 08/24/2021 39328 Therapeutic Procedure, Each 15 M inutes Completed 08/24/2021 61437 Therapeutic Procedure, Each 15 M inutes Completed 08/22/2021 63815 Therapeutic Procedure, Each 15 M inutes Completed 08/22/2021 82964 Therapeutic Procedure, Each 15 M inutes Completed 08/22/2021 68281 Electrical Stimulati on Manual, Each 15 Min, Constant Attendance Completed 08/22/2021 57729 Hot Or Cold Packs Completed 08/17/2021 78954 Therapeutic Procedure, Each 15 M inutes Completed 08/17/2021 07430 Therapeutic Procedure, Each 15 M inutes Completed 08/17/2021 26519 Electrical Stimulati on Manual, Each 15 Min, Constant Attendance Completed 08/15/2021 06236 Therapeutic Procedure, Each 15 M inutes Completed 08/15/2021 97238 Hot Or Cold Packs Completed 08/15/2021 01488 Therapeutic Procedure, Each 15 M inutes Completed 08/15/2021 15205 Electrical Stimulati on Manual, Each 15 Min, Constant Attendance Completed 08/10/2021 36662 Therapeutic Procedure, Each 15 M inutes Completed 08/10/2021 99082 Therapeutic Procedure, Each 15 M inutes Completed 08/10/2021 42007 Electrical Stimulati on Manual, Each 15 Min, Constant Attendance Completed 08/10/2021 41801 Hot Or Cold Packs Completed 08/08/2021 98722 Hot Or Cold Packs Completed 08/08/2021 42237 Electrical Stimulati on Manual, Each 15 Min, Constant Attendance Completed 08/08/2021 14170 Therapeutic Procedure, Each 15 M inutes Completed 08/08/2021 69307 Therapeutic Procedure, Each 15 M inutes Completed 08/03/2021 17468 Therapeutic Procedure, Each 15 M inutes Completed 08/03/2021 24682 Therapeutic Procedure, Each 15 M inutes Completed 08/01/2021 22184 Therapeutic Procedure, Each 15 M inutes Completed 08/01/2021 22471 Therapeutic Procedure, Each 15 M inutes Completed 08/01/2021 06173 Electrical Stimulati on Manual, Each 15 Min, Constant Attendance Completed 08/01/2021 66976 Hot Or Cold Packs Completed 07/27/2021 64510 Hot Or Cold Packs Completed 07/27/2021 16822 Electrical Stimulati on Manual, Each 15 Min, Constant Attendance Completed 07/27/2021 31888 Therapeutic Procedure, Each 15 M inutes Completed 07/27/2021 03671 Therapeutic Procedure, Each 15 M inutes Completed 07/25/2021 06688 Therapeutic Procedure, Each 15 M inutes Completed 07/25/2021 90772 Therapeutic Procedure, Each 15 M inutes Completed 07/25/2021 10680 Electrical Stimulati on Manual, Each 15 Min, Constant Attendance Completed 07/25/2021 95205 Hot Or Cold Packs Completed 07/20/2021 64479 Hot Or Cold Packs Completed 07/20/2021 65725 Electrical Stimulati on Manual, Each 15 Min, Constant Attendance Completed 07/20/2021 21811 Therapeutic Procedure, Each 15 M inutes Completed 07/20/2021 60247 Therapeutic Procedure, Each 15 M inutes Completed 07/20/2021 20878 Re-Eval Of PT Establ ished Plan Of Care 20Mins Face To Face PT/Fam Completed 07/18/2021 30790 Therapeutic Procedure, Each 15 M inutes Completed 07/18/2021 74700 Therapeutic Procedure, Each 15 M inutes Completed 07/18/2021 53422 Electrical Stimulati on Manual, Each 15 Min, Constant Attendance Completed 07/13/2021 14710 Therapeutic Procedure, Each 15 M inutes Completed 07/13/2021 47867 Therapeutic Procedure, Each 15 M inutes Completed 07/13/2021 23730 Electrical Stimulati on Manual, Each 15 Min, Constant Attendance Completed 07/13/2021 99765 Hot Or Cold Packs Completed 07/11/2021 34250 Hot Or Cold Packs Completed 07/11/2021 40589 Electrical Stimulati on Manual, Each 15 Min, Constant Attendance Completed 07/11/2021 21661 Therapeutic Procedure, Each 15 M inutes Completed 07/11/2021 25499 Therapeutic Procedure, Each 15 M inutes Completed 07/06/2021 21547 Therapeutic Procedure, Each 15 M inutes Completed 07/06/2021 91577 Therapeutic Procedure, Each 15 M inutes Completed 07/06/2021 39616 Electrical Stimulati on Manual, Each 15 Min, Constant Attendance Completed 07/06/2021 08484 Hot Or Cold Packs Completed 07/04/2021 61771 Manual Therapy Each 15 Minutes C ompleted 07/04/2021 77669 Therapeutic Procedure, Each 15 M inutes Completed 07/04/2021 09460 Therapeutic Procedure, Each 15 M inutes Completed 07/04/2021 86131 Hot Or Cold Packs Completed 06/30/2021 18991 Therapeutic Procedure, Each 15 M inutes Completed 06/30/2021 25608 Hot Or Cold Packs Completed 06/30/2021 86815 Electrical Stimulati on Manual, Each 15 Min, Constant Attendance Completed 06/30/2021 13448 Therapeutic Procedure, Each 15 M inutes Completed 06/28/2021 36630 Therapeutic Procedure, Each 15 M inutes Completed 06/28/2021 36220 Therapeutic Procedure, Each 15 M inutes Completed 06/28/2021 23734 Electrical Stimulati on Manual, Each 15 Min, Constant Attendance Completed 06/28/2021 24606 Hot Or Cold Packs Completed 06/26/2021 28786 Physical Therapy Eval - Low Comp lexity Completed 06/22/2021 12569 Arthroscopy Knee W/M eniscectomy Inc Chondroplasty (Med Or Lateral Completed 04/10/2021 37253 Office/Outpatient Established Mo d MDM 30-39 Min Completed 04/04/2021 92819 Office/Outpatient Established Lo w MDM 20-29 Min Completed Medical Devices Description No Information [...] osteoarthritis, left knee M94.262 Chondromalacia, left knee Office Visit 04/04/2021 3:45p FELECIA Bethea M17.32 Unilateral post-traumatic osteoarthritis, left knee M94.262 Chondromalacia, left knee Assessments Date Code Description Provider 10/03/2021 M25.562 Pain in left knee Madonna izquierdo, MSPT 10/03/2021 Z47.89 Encounter for other orthopedic a ftercare Madonna Yo, MSPT 09/26/2021 M25.562 Pain in left knee Madonna Van felecia, MSPT 09/26/2021 Z47.89 Encounter for other orthopedic a ftercare Madonna Yo, MSPT 09/21/2021 M25.562 Pain in left knee Madonna Van felecia, MSPT 09/21/2021 Z47.89 Encounter for other orthopedic a ftercare Madonna Yo, MSPT 09/07/2021 Z47.89 Encounter for other orthopedic a ftercare Jimenez Chin PA-C 09/07/2021 M25.562 Pain in left knee Jimenez polo PA-C 08/29/2021 M25.562 Pain in left knee Madonna Van felecia, MSPT 08/29/2021 Z47.89 Encounter for other orthopedic a ftercare Madonna Yo, MSPT 08/24/2021 Z47.89 Encounter for other orthopedic a ftercare Jimenez Chin PA-C 08/24/2021 M25.562 Pain in left knee Jimenez polo PA-C 08/24/2021 Z47.89 Encounter for other orthopedic a ftercare Madonna Yo, MSPT 08/22/2021 Z47.89 Encounter for other orthopedic a ftercare Madonna Yo, MSPT 08/17/2021 Z47.89 Encounter for other orthopedic a ftercare Júnior Damon P.T. 08/15/2021 Z47.89 Encounter for other orthopedic a ftercare Madonna Yo, MSPT 08/10/2021 Z47.89 Encounter for other orthopedic a ftercare Madonna Yo, MSPT 08/08/2021 Z47.89 Encounter for other orthopedic a ftercare Madonna Yo, MSPT 08/03/2021 Z47.89 Encounter for other orthopedic a ftercare Madonna Yo, MSPT 08/01/2021 Z47.89 Encounter for other orthopedic [...] other orthopedic a ftercare Madonna M. Vespa, [facility] 07/11/2021 Z47.89 Encounter for other orthopedic a ftercare Madonna M. Vespa, [facility] 07/06/2021 Z47.89 Encounter for other orthopedic a ftercare Madonna M. Vespa, [facility] 07/04/2021 Z47.89 Encounter for other orthopedic a ftercare Madonna M. Vespa, [facility] 07/03/2021 Z47.89 Encounter for other orthopedic a ftercare Jimenez Chin PA-C 06/30/2021 Z47.89 Encounter for other orthopedic a ftercare Madonna M. Rehanpa, [facility] 06/28/2021 Z47.89 Encounter for other orthopedic a ftercare Madonna M. Vespa, [facility] 06/26/2021 Z47.89 Encounter for other orthopedic a ftercare Madonna M. Rehanpa, [facility] 06/26/2021 Z47.89 Encounter for other orthopedic a [...] M94.262 Chondromalacia, left knee Flaco Martinez MD 04/04/2021 M17.32 Unilateral post-traumatic osteoa rthritis, left knee FELECIA Boo 04/04/2021 M94.262 Chondromalacia, left knee FELECIA Levy Plan of Treatment Future Appointment(s):* 10/12/2021 4:30 pm - BAUDILIO Alves at Physical Therapy * 10/10/2021 4:30 pm - BAUDILIO Alves at Physical Therapy * 10/05/2021 4:30 pm - BAUDILIO Alves at Physical Therapy Functional Status Description No Information Available Mental Status Description No Information Available Referrals Refer to Dr Reason for Referral Status Appt Date January Cuevas MD PT LT KNEE WRITTEN AUTH PASSED TO PT DE PT. LS Created [facility], [address] [id number] [phone] Jimenez Chin, PA-C PT LT KNEE OK TO [facility] 2ND SET AFTER SURGERY. PASSED TO PT DEPT. LS Created [facility] [place] [address] [phone] Flaco Martinez MD PT LT KNEE OK TO [facility] 1ST SET AFTER SURGERY. L S Created [facility], [place] [address] [phone] Flaco Martinez MD CRUTCHES OK TO SUPPLY HERE. LS Created [facility] [address] [address] [phone] Flaco Martinez MD SURGERY LT KNEE DX ARTHROSCO PY WRITTEN AUTH PASSED TO SURGERY. LS Created [address] [facility], [address] [place] [address] [phone]
--- OUTSIDE RECORDS SUMMARY | 2021-11-02 08:34 | CCD | Continuity of Care Document ---
Author Author Edith MAYER PA-C Organization Unknown Address [address] [address] Phone [phone] Care Team Providers Care Tanker Truck Driver Name Role Phone [employer] SAW AUTM [phone] Mahesh Monaco MD AUTM [phone] Faiza Gupta MD AUTM [phone] Mahesh Monaco MD AUTM [phone] Problems Active Problems Provider Date Patellar tendonitis [...] 12/15/2020, left knee #2 iid/sujit,left knee#3 Iid/TF 01/09/21 Zach Cuevas MD 12/15/2020 Fluticasone Propionate 50mcg/Act [...] Testing NEGATIVE Procedures Date Code Description Status 08/29/2021 62244 Therapeutic Procedure, Each 15 M inutes Completed 08/29/2021 21477 Therapeutic Procedure, Each 15 M inutes Completed 08/24/2021 60487 Therapeutic Procedure, Each 15 M inutes Completed 08/24/2021 98525 Therapeutic Procedure, Each 15 M inutes Completed 08/24/2021 27813 Electrical Stimulati on Manual, Each 15 Min, Constant Attendance Completed 08/24/2021 41488 Hot Or Cold Packs Completed 08/22/2021 07742 Hot Or Cold Packs Completed 08/22/2021 59630 Electrical Stimulati on Manual, Each 15 Min, Constant Attendance Completed 08/22/2021 04064 Therapeutic Procedure, Each 15 M inutes Completed 08/22/2021 25085 Therapeutic Procedure, Each 15 M inutes Completed 08/17/2021 86062 Therapeutic Procedure, Each 15 M inutes Completed 08/17/2021 46906 Therapeutic Procedure, Each 15 M inutes Completed 08/17/2021 54629 Electrical Stimulati on Manual, Each 15 Min, Constant Attendance Completed 08/15/2021 41885 Therapeutic Procedure, Each 15 M inutes Completed 08/15/2021 55672 Therapeutic Procedure, Each 15 M inutes Completed 08/15/2021 29648 Electrical Stimulati on Manual, Each 15 Min, Constant Attendance Completed 08/15/2021 87919 Hot Or Cold Packs Completed 08/10/2021 73319 Therapeutic Procedure, Each 15 M inutes Completed 08/10/2021 01041 Hot Or Cold Packs Completed 08/10/2021 18622 Electrical Stimulati on Manual, Each 15 Min, Constant Attendance Completed 08/10/2021 46420 Therapeutic Procedure, Each 15 M inutes Completed 08/08/2021 59872 Therapeutic Procedure, Each 15 M inutes Completed 08/08/2021 27760 Therapeutic Procedure, Each 15 M inutes Completed 08/08/2021 15956 Electrical Stimulati on Manual, Each 15 Min, Constant Attendance Completed 08/08/2021 81337 Hot Or Cold Packs Completed 08/03/2021 55941 Therapeutic Procedure, Each 15 M inutes Completed 08/03/2021 30618 Therapeutic Procedure, Each 15 M inutes Completed 08/01/2021 30293 Therapeutic Procedure, Each 15 M inutes Completed 08/01/2021 11045 Therapeutic Procedure, Each 15 M inutes Completed 08/01/2021 17101 Electrical Stimulati on Manual, Each 15 Min, Constant Attendance Completed 08/01/2021 54114 Hot Or Cold Packs Completed 07/27/2021 90969 Therapeutic Procedure, Each 15 M inutes Completed 07/27/2021 77053 Therapeutic Procedure, Each 15 M inutes Completed 07/27/2021 84301 Electrical Stimulati on Manual, Each 15 Min, Constant Attendance Completed 07/27/2021 39745 Hot Or Cold Packs Completed 07/25/2021 09488 Electrical Stimulati on Manual, Each 15 Min, Constant Attendance Completed 07/25/2021 76224 Hot Or Cold Packs Completed 07/25/2021 70007 Therapeutic Procedure, Each 15 M inutes Completed 07/25/2021 80316 Therapeutic Procedure, Each 15 M inutes Completed 07/20/2021 34277 Therapeutic Procedure, Each 15 M inutes Completed 07/20/2021 90829 Therapeutic Procedure, Each 15 M inutes Completed 07/20/2021 49711 Electrical Stimulati on Manual, Each 15 Min, Constant Attendance Completed 07/20/2021 99955 Hot Or Cold Packs Completed 07/20/2021 88833 Re-Eval Of PT Establ ished Plan Of Care 20Mins Face To Face PT/Fam Completed 07/18/2021 56003 Therapeutic Procedure, Each 15 M inutes Completed 07/18/2021 77294 Therapeutic Procedure, Each 15 M inutes Completed 07/18/2021 27954 Electrical Stimulati on Manual, Each 15 Min, Constant Attendance Completed 07/13/2021 04957 Therapeutic Procedure, Each 15 M inutes Completed 07/13/2021 58239 Hot Or Cold Packs Completed 07/13/2021 06311 Electrical Stimulati on Manual, Each 15 Min, Constant Attendance Completed 07/13/2021 20933 Therapeutic Procedure, Each 15 M inutes Completed 07/11/2021 14981 Therapeutic Procedure, Each 15 M inutes Completed 07/11/2021 66792 Therapeutic Procedure, Each 15 M inutes Completed 07/11/2021 10627 Electrical Stimulati on Manual, Each 15 Min, Constant Attendance Completed 07/11/2021 37286 Hot Or Cold Packs Completed 07/06/2021 92054 Hot Or Cold Packs Completed 07/06/2021 32295 Therapeutic Procedure, Each 15 M inutes Completed 07/06/2021 38558 Therapeutic Procedure, Each 15 M inutes Completed 07/06/2021 37377 Electrical Stimulati on Manual, Each 15 Min, Constant Attendance Completed 07/04/2021 41394 Manual Therapy Each 15 Minutes C ompleted 07/04/2021 58453 Therapeutic Procedure, Each 15 M inutes Completed 07/04/2021 45438 Therapeutic Procedure, Each 15 M inutes Completed 07/04/2021 96169 Hot Or Cold Packs Completed 06/30/2021 08930 Hot Or Cold Packs Completed 06/30/2021 57789 Electrical Stimulati on Manual, Each 15 Min, Constant Attendance Completed 06/30/2021 64847 Therapeutic Procedure, Each 15 M inutes Completed 06/30/2021 93921 Therapeutic Procedure, Each 15 M inutes Completed 06/28/2021 85714 Therapeutic Procedure, Each 15 M inutes Completed 06/28/2021 78894 Therapeutic Procedure, Each 15 M inutes Completed 06/28/2021 64031 Electrical Stimulati on Manual, Each 15 Min, Constant Attendance Completed 06/28/2021 20294 Hot Or Cold Packs Completed 06/26/2021 11302 Physical Therapy Eval - Low Comp lexity Completed 06/22/2021 44540 Arthroscopy Knee W/M eniscectomy Inc Chondroplasty (Med Or Lateral Completed 04/10/2021 87859 Office/Outpatient Established Mo d MDM 30-39 Min Completed 04/04/2021 71732 Office/Outpatient Established Lo w MDM 20-29 Min Completed 03/24/2021 82527 MRI Lower Extremity Any Joint Co mpleted Medical Devices Description No Information Available Encounters Type Date Location Provider Dx Diagnosis Office Visit 09/07/2021 1:15p Alfred Mayer PA-C Z4 7.89 Encounter for other orthopedic aftercare M25.562 Pain in left knee Office Visit 08/24/2021 5:15p Alfred Mayer PA-C Z4 7.89 Encounter for other orthopedic aftercare M25.562 Pain in left knee Office Visit 08/01/2021 5:15p Alfred Mayer PA-C Z4 7.89 Encounter for other orthopedic aftercare Office Visit 07/03/2021 4:30p Alfred Mayer PA-C Z4 7.89 Encounter for other orthopedic aftercare Office Visit 06/26/2021 3:15p Alfred Martinez MD Z47.89 Encounter for other orthopedic aftercare Office Visit 04/10/2021 2:15p Alfred Martinez MD M17.12 Unilateral primary osteoarthritis, left knee M94.262 Chondromalacia, left knee Office Visit 04/04/2021 3:45p [place] M17.32 Unilateral post-traumatic osteoarthritis, left knee M94.262 Chondromalacia, left knee Assessments Date Code Description Provider 09/07/2021 Z47.89 Encounter for other orthopedic a ftshala Mayer PA-C 09/07/2021 M25.562 Pain in left knee Jimenez polo PA-C 08/29/2021 Z47.89 Encounter for other orthopedic a tony Deleon, [facility] 08/29/2021 M25.562 Pain in left knee Madonna izquierdo, [facility] 08/24/2021 Z47.89 Encounter for other orthopedic a MEHREEN PelaezC 08/24/2021 M25.562 Pain in left knee Jimenez polo PA-C 08/24/2021 Z47.89 Encounter for other orthopedic a ftercare Madonna M. Vespa, MSPT 08/22/2021 Z47.89 Encounter for other orthopedic a ftercare Madonna M. Vespa, MSPT 08/17/2021 Z47.89 Encounter for other orthopedic a ftercare Júnior Damon P.T. 08/15/2021 Z47.89 Encounter for other orthopedic a ftercare Madonna M. Vespa, MSPT 08/10/2021 Z47.89 Encounter for other orthopedic a ftercare Madonna M. Vespa, MSPT 08/08/2021 Z47.89 Encounter for other orthopedic a ftercare Madonna M. Vespa, MSPT 08/03/2021 Z47.89 Encounter for other orthopedic a ftercare Madonna M. Vespa, MSPT 08/01/2021 Z47.89 Encounter for other orthopedic a ftercare Jimenez Mayer PA-C 08/01/2021 Z47.89 Encounter for other orthopedic [...] Encounter for other orthopedic a ftercare Jimenez Mayer PA-C 06/30/2021 Z47.89 Encounter for other orthopedic a ftercare Madonna Vanfelecia, [facility] 06/28/2021 Z47.89 Encounter for other orthopedic a ftercare Madonna Vanfelecia, [facility] 06/26/2021 Z47.89 Encounter for other orthopedic a ftercare Madonna Vanfelecia, [facility] 06/26/2021 Z47.89 Encounter for [...] 04/04/2021 M94.262 Chondromalacia, left knee FELECIA Levy 03/24/2021 M17.12 Unilateral primary osteoarthriti s, left knee FELECIA Boo 03/24/2021 M17.12 Unilateral primary osteoarthriti s, left knee MRI Plan of Treatment Future Appointment(s):* 09/21/2021 4:30 pm - MINDY AlvesT at Physical Therapy 09/07/2021 - Jimenez Mayer PA-C* Z47.89 Encounter for other orthopedic aftercare * M25.562 Pain in left knee* New Xrays:* MRI Left Knee, Ordered: 09/07/21 * Follow up:* [facility] BOOK IT after lt knee mri results w/BMS Functional Status Description No Information Available Mental Status Description No Information Available Referrals Refer to Reason for Referral Status Appt Date January Cuevas MD PT LT KNEE WRITTEN AUTH PASSED TO PT DE PT. LS Created [facility] [place] [address] [phone] Jimenez Mayer PA-C PT LT KNEE OK TO [facility] 2ND SET AFTER SURGERY. PASSED TO PT DEPT. MARIA A Created [address] [place] [address] [phone] Flaco Martinez MD PT LT KNEE OK TO [facility] 1ST SET AFTER SURGERY. L S Created [address] [place] [address] [phone] Flaco Martinez MD CRUTCHES OK TO SUPPLY HERE. MARIA A Created [facility] [place] [address] [phone] Flaco Martinez MD SURGERY LT KNEE DX ARTHROSCO PY WRITTEN AUTH PASSED TO SURGERY. MARIA A Created [facility], [address] [id number] [phone]
--- OUTSIDE RECORDS SUMMARY | 2021-11-02 08:34 | CCD | Continuity of Care Document ---
Author Author Edith YO MSPT Organization Unknown Address [address] [place] [address] Phone [phone] Care Team Providers Care [facility] Name Role Phone [facility] SAW AUTM [phone] Mahesh Monaco MD AUTM [phone] Faiza Gupta MD AUTM Mahesh Monaco MD AUTM [phone] Problems Active Problems Provider Date Patellar tendonitis [...] Testing NEGATIVE Procedures Date Code Description Status 09/26/2021 35619 Therapeutic Procedure, Each 15 M inutes Completed 09/26/2021 14817 Therapeutic Procedure, Each 15 M inutes Completed 09/21/2021 23326 Therapeutic Procedure, Each 15 M inutes Completed 09/21/2021 83238 Therapeutic Procedure, Each 15 M inutes Completed 08/29/2021 48375 Therapeutic Procedure, Each 15 M inutes Completed 08/29/2021 15026 Therapeutic Procedure, Each 15 M inutes Completed 08/24/2021 80693 Hot Or Cold Packs Completed 08/24/2021 22792 Electrical Stimulati on Manual, Each 15 Min, Constant Attendance Completed 08/24/2021 46363 Therapeutic Procedure, Each 15 M inutes Completed 08/24/2021 72706 Therapeutic Procedure, Each 15 M inutes Completed 08/22/2021 76931 Therapeutic Procedure, Each 15 M inutes Completed 08/22/2021 00812 Therapeutic Procedure, Each 15 M inutes Completed 08/22/2021 64218 Electrical Stimulati on Manual, Each 15 Min, Constant Attendance Completed 08/22/2021 00031 Hot Or Cold Packs Completed 08/17/2021 84061 Therapeutic Procedure, Each 15 M inutes Completed 08/17/2021 65705 Therapeutic Procedure, Each 15 M inutes Completed 08/17/2021 35969 Electrical Stimulati on Manual, Each 15 Min, Constant Attendance Completed 08/15/2021 47601 Hot Or Cold Packs Completed 08/15/2021 73917 Electrical Stimulati on Manual, Each 15 Min, Constant Attendance Completed 08/15/2021 70235 Therapeutic Procedure, Each 15 M inutes Completed 08/15/2021 54715 Therapeutic Procedure, Each 15 M inutes Completed 08/10/2021 66964 Therapeutic Procedure, Each 15 M inutes Completed 08/10/2021 26889 Electrical Stimulati on Manual, Each 15 Min, Constant Attendance Completed 08/10/2021 37997 Hot Or Cold Packs Completed 08/10/2021 95100 Therapeutic Procedure, Each 15 M inutes Completed 08/08/2021 96722 Therapeutic Procedure, Each 15 M inutes Completed 08/08/2021 28524 Therapeutic Procedure, Each 15 M inutes Completed 08/08/2021 16787 Electrical Stimulati on Manual, Each 15 Min, Constant Attendance Completed 08/08/2021 75976 Hot Or Cold Packs Completed 08/03/2021 03425 Therapeutic Procedure, Each 15 M inutes Completed 08/03/2021 00093 Therapeutic Procedure, Each 15 M inutes Completed 08/01/2021 96479 Therapeutic Procedure, Each 15 M inutes Completed 08/01/2021 97177 Therapeutic Procedure, Each 15 M inutes Completed 08/01/2021 51534 Electrical Stimulati on Manual, Each 15 Min, Constant Attendance Completed 08/01/2021 45340 Hot Or Cold Packs Completed 07/27/2021 25394 Therapeutic Procedure, Each 15 M inutes Completed 07/27/2021 30398 Therapeutic Procedure, Each 15 M inutes Completed 07/27/2021 52057 Electrical Stimulati on Manual, Each 15 Min, Constant Attendance Completed 07/27/2021 69609 Hot Or Cold Packs Completed 07/25/2021 28170 Hot Or Cold Packs Completed 07/25/2021 54253 Therapeutic Procedure, Each 15 M inutes Completed 07/25/2021 21092 Therapeutic Procedure, Each 15 M inutes Completed 07/25/2021 45259 Electrical Stimulati on Manual, Each 15 Min, Constant Attendance Completed 07/20/2021 30297 Therapeutic Procedure, Each 15 M inutes Completed 07/20/2021 68002 Therapeutic Procedure, Each 15 M inutes Completed 07/20/2021 71516 Electrical Stimulati on Manual, Each 15 Min, Constant Attendance Completed 07/20/2021 18026 Hot Or Cold Packs Completed 07/20/2021 55369 Re-Eval Of PT Establ ished Plan Of Care 20Mins Face To Face PT/Fam Completed 07/18/2021 92171 Therapeutic Procedure, Each 15 M inutes Completed 07/18/2021 92460 Therapeutic Procedure, Each 15 M inutes Completed 07/18/2021 51041 Electrical Stimulati on Manual, Each 15 Min, Constant Attendance Completed 07/13/2021 28401 Therapeutic Procedure, Each 15 M inutes Completed 07/13/2021 86582 Hot Or Cold Packs Completed 07/13/2021 40690 Electrical Stimulati on Manual, Each 15 Min, Constant Attendance Completed 07/13/2021 23028 Therapeutic Procedure, Each 15 M inutes Completed 07/11/2021 65351 Therapeutic Procedure, Each 15 M inutes Completed 07/11/2021 67110 Therapeutic Procedure, Each 15 M inutes Completed 07/11/2021 02343 Electrical Stimulati on Manual, Each 15 Min, Constant Attendance Completed 07/11/2021 37694 Hot Or Cold Packs Completed 07/06/2021 89120 Hot Or Cold Packs Completed 07/06/2021 03693 Therapeutic Procedure, Each 15 M inutes Completed 07/06/2021 83469 Therapeutic Procedure, Each 15 M inutes Completed 07/06/2021 88839 Electrical Stimulati on Manual, Each 15 Min, Constant Attendance Completed 07/04/2021 51965 Manual Therapy Each 15 Minutes C ompleted 07/04/2021 46156 Therapeutic Procedure, Each 15 M inutes Completed 07/04/2021 33987 Therapeutic Procedure, Each 15 M inutes Completed 07/04/2021 47731 Hot Or Cold Packs Completed 06/30/2021 51653 Hot Or Cold Packs Completed 06/30/2021 86291 Electrical Stimulati on Manual, Each 15 Min, Constant Attendance Completed 06/30/2021 74617 Therapeutic Procedure, Each 15 M inutes Completed 06/30/2021 36485 Therapeutic Procedure, Each 15 M inutes Completed 06/28/2021 25168 Therapeutic Procedure, Each 15 M inutes Completed 06/28/2021 06470 Therapeutic Procedure, Each 15 M inutes Completed 06/28/2021 53909 Electrical Stimulati on Manual, Each 15 Min, Constant Attendance Completed 06/28/2021 28376 Hot Or Cold Packs Completed 06/26/2021 82582 Physical Therapy Eval - Low Comp lexity Completed 06/22/2021 38699 Arthroscopy Knee W/M eniscectomy Inc Chondroplasty (Med Or Lateral Completed 04/10/2021 69082 Office/Outpatient Established Mo d MDM 30-39 Min Completed 04/04/2021 93061 Office/Outpatient Established Lo w MDM 20-29 Min [...] other orthopedic aftercare Office Visit 04/10/2021 2:15p Corte Maderabinta Martinez MD M17.12 Unilateral primary osteoarthritis, left knee M94.262 Chondromalacia, left knee Office Visit 04/04/2021 3:45p FELECIA Bethea M17.32 Unilateral post-traumatic osteoarthritis, left knee M94.262 Chondromalacia, left knee Assessments Date Code Description Provider 09/26/2021 Z47.89 Encounter for other orthopedic a BAUDILIO Stratton 09/26/2021 M25.562 Pain in left knee BAUDILIO Sosa 09/21/2021 Z47.89 Encounter for other orthopedic a BAUDILIO Stratton 09/21/2021 M25.562 Pain in left knee Madonna Van felecia, MSPT 09/07/2021 Z47.89 Encounter for other orthopedic a ftercare Jimenez Chin PA-C 09/07/2021 M25.562 Pain in left knee Jimenez polo PA-C 08/29/2021 M25.562 Pain in left knee Madonna Van felecia, MSPT 08/29/2021 Z47.89 Encounter for other orthopedic a ftercare Madonna Yo, MSPT 08/24/2021 Z47.89 Encounter for other orthopedic a ftercare Zuleykamelida Lynsey Chin PA-C 08/24/2021 M25.562 Pain in left knee Jimenez polo, LORAINE 08/24/2021 Z47.89 Encounter for other orthopedic a ftercare Madonna Yo, MSPT 08/22/2021 Z47.89 Encounter for other orthopedic a ftercare Madonna Yo, MSPT 08/17/2021 Z47.89 Encounter for other orthopedic a ftercare Júnior Damon P.TToan 08/15/2021 Z47.89 Encounter for other orthopedic a ftercare Madonna Yo, MSPT 08/10/2021 Z47.89 Encounter for other orthopedic a ftercare Madonna Yo, MSPT 08/08/2021 Z47.89 Encounter for other orthopedic a ftercare Madonna Yo, MSPT 08/03/2021 Z47.89 Encounter for other orthopedic a ftercare Madonna Yo, MSPT 08/01/2021 Z47.89 Encounter for other orthopedic a ftercare Zuleykamelida PosadaToan Chin PA-C 08/01/2021 Z47.89 Encounter for other orthopedic a ftercare Maodnna Yo, MSPT 07/27/2021 Z47.89 Encounter for other orthopedic a ftercare Madonna Yo, MSPT 07/25/2021 Z47.89 Encounter for other orthopedic a ftercare Júnior Damon P.TToan 07/20/2021 Z47.89 Encounter for other orthopedic a ftercare Madonna Albino. Rehanpa, MSPT 07/18/2021 Z47.89 Encounter for other orthopedic a ftercare Madonna M. Vespa, MSPT 07/13/2021 Z47.89 Encounter for other orthopedic a ftercare Madonna Albino. Vespa, MSPT 07/11/2021 Z47.89 Encounter for other orthopedic a ftercare Madonna M. Vespa, MSPT 07/06/2021 Z47.89 Encounter for other orthopedic a ftercare Madonna M. Vespa, MSPT 07/04/2021 Z47.89 Encounter for other orthopedic a ftercare Madonna Albino. Vespa, MSPT 07/03/2021 Z47.89 Encounter for other orthopedic a ftercare Jimenez Chin PA-C 06/30/2021 Z47.89 Encounter for other orthopedic a ftercare Madonna M. Rehanpa, MSPT 06/28/2021 Z47.89 Encounter for other orthopedic a ftercare Madonna M. Rehanpa, [email or web address] 06/26/2021 Z47.89 Encounter for other orthopedic a ftercare Madonna Albino. Pancho, MSPT 06/26/2021 Z47.89 Encounter for other orthopedic [...] Physical Therapy * 10/05/2021 4:30 pm - MINDY AlvesT at Physical Therapy Functional Status Description No Information Available Mental Status Description No Information Available Referrals Refer to Dr Reason for Referral Status Appt Date January Cuevas MD PT LT KNEE WRITTEN AUTH PASSED TO PT DE PT. LS Created [facility] [place] [address] [phone] Jimenez Chin, PA-C PT LT KNEE OK TO [facility] 2ND SET AFTER SURGERY. PASSED TO PT DEPT. LS Created [facility] [place] [address] [phone] Flaco Martinez MD PT LT KNEE OK TO [facility] 1ST SET AFTER SURGERY. L S Created [facility] [place] [address] [phone] Flaco Martinez MD CRUTCHES OK TO SUPPLY HERE. LS Created [facility] [address] [id number] [phone] Flaco Martinez MD SURGERY LT KNEE DX ARTHROSCO PY WRITTEN AUTH PASSED TO SURGERY. LS Created [facility] [address] [id number] [phone]
--- OUTSIDE RECORDS SUMMARY | 2021-11-02 08:34 | CCD | Continuity of Care Document ---
Author Author Edith MAYER PA-C Organization Unknown Address [address] [address] Phone [phone] Care Team Providers Care Multimedia Engineer Name Role Phone [facility] [employer] SAW AUTM [phone] Mahesh Monaco MD AUTM [phone] Faiza Gupta MD AUTM Mahesh Moanco MD AUTM [phone] Problems Active Problems Provider Date Patellar tendonitis [...] NEGATIVE Procedures Date Code Description Status 08/29/2021 52043 Therapeutic Procedure, Each 15 M inutes Completed 08/29/2021 79767 Therapeutic Procedure, Each 15 M inutes Completed 08/24/2021 90990 Therapeutic Procedure, Each 15 M inutes Completed 08/24/2021 73957 Therapeutic Procedure, Each 15 M inutes Completed 08/24/2021 41268 Electrical Stimulati on Manual, Each 15 Min, Constant Attendance Completed 08/24/2021 96797 Hot Or Cold Packs Completed 08/22/2021 36242 Hot Or Cold Packs Completed 08/22/2021 25825 Electrical Stimulati on Manual, Each 15 Min, Constant Attendance Completed 08/22/2021 21082 Therapeutic Procedure, Each 15 M inutes Completed 08/22/2021 23552 Therapeutic Procedure, Each 15 M inutes Completed 08/17/2021 51249 Therapeutic Procedure, Each 15 M inutes Completed 08/17/2021 36816 Therapeutic Procedure, Each 15 M inutes Completed 08/17/2021 04888 Electrical Stimulati on Manual, Each 15 Min, Constant Attendance Completed 08/15/2021 26647 Therapeutic Procedure, Each 15 M inutes Completed 08/15/2021 98856 Therapeutic Procedure, Each 15 M inutes Completed 08/15/2021 20950 Electrical Stimulati on Manual, Each 15 Min, Constant Attendance Completed 08/15/2021 72826 Hot Or Cold Packs Completed 08/10/2021 57962 Therapeutic Procedure, Each 15 M inutes Completed 08/10/2021 23131 Hot Or Cold Packs Completed 08/10/2021 64653 Electrical Stimulati on Manual, Each 15 Min, Constant Attendance Completed 08/10/2021 17833 Therapeutic Procedure, Each 15 M inutes Completed 08/08/2021 29510 Therapeutic Procedure, Each 15 M inutes Completed 08/08/2021 46742 Therapeutic Procedure, Each 15 M inutes Completed 08/08/2021 11263 Electrical Stimulati on Manual, Each 15 Min, Constant Attendance Completed 08/08/2021 09747 Hot Or Cold Packs Completed 08/03/2021 11099 Therapeutic Procedure, Each 15 M inutes Completed 08/03/2021 08791 Therapeutic Procedure, Each 15 M inutes Completed 08/01/2021 83272 Therapeutic Procedure, Each 15 M inutes Completed 08/01/2021 50024 Therapeutic Procedure, Each 15 M inutes Completed 08/01/2021 99345 Electrical Stimulati on Manual, Each 15 Min, Constant Attendance Completed 08/01/2021 92320 Hot Or Cold Packs Completed 07/27/2021 39055 Therapeutic Procedure, Each 15 M inutes Completed 07/27/2021 70410 Therapeutic Procedure, Each 15 M inutes Completed 07/27/2021 95914 Electrical Stimulati on Manual, Each 15 Min, Constant Attendance Completed 07/27/2021 43325 Hot Or Cold Packs Completed 07/25/2021 38010 Electrical Stimulati on Manual, Each 15 Min, Constant Attendance Completed 07/25/2021 73906 Hot Or Cold Packs Completed 07/25/2021 72111 Therapeutic Procedure, Each 15 M inutes Completed 07/25/2021 61678 Therapeutic Procedure, Each 15 M inutes Completed 07/20/2021 81214 Therapeutic Procedure, Each 15 M inutes Completed 07/20/2021 32700 Therapeutic Procedure, Each 15 M inutes Completed 07/20/2021 26516 Electrical Stimulati on Manual, Each 15 Min, Constant Attendance Completed 07/20/2021 05230 Hot Or Cold Packs Completed 07/20/2021 59751 Re-Eval Of PT Establ ished Plan Of Care 20Mins Face To Face PT/Fam Completed 07/18/2021 87057 Therapeutic Procedure, Each 15 M inutes Completed 07/18/2021 22395 Therapeutic Procedure, Each 15 M inutes Completed 07/18/2021 45330 Electrical Stimulati on Manual, Each 15 Min, Constant Attendance Completed 07/13/2021 80053 Therapeutic Procedure, Each 15 M inutes Completed 07/13/2021 17485 Hot Or Cold Packs Completed 07/13/2021 35895 Electrical Stimulati on Manual, Each 15 Min, Constant Attendance Completed 07/13/2021 35590 Therapeutic Procedure, Each 15 M inutes Completed 07/11/2021 88468 Therapeutic Procedure, Each 15 M inutes Completed 07/11/2021 81281 Therapeutic Procedure, Each 15 M inutes Completed 07/11/2021 48428 Electrical Stimulati on Manual, Each 15 Min, Constant Attendance Completed 07/11/2021 72777 Hot Or Cold Packs Completed 07/06/2021 26590 Hot Or Cold Packs Completed 07/06/2021 61996 Therapeutic Procedure, Each 15 M inutes Completed 07/06/2021 85764 Therapeutic Procedure, Each 15 M inutes Completed 07/06/2021 42312 Electrical Stimulati on Manual, Each 15 Min, Constant Attendance Completed 07/04/2021 36281 Manual Therapy Each 15 Minutes C ompleted 07/04/2021 86458 Therapeutic Procedure, Each 15 M inutes Completed 07/04/2021 92802 Therapeutic Procedure, Each 15 M inutes Completed 07/04/2021 17963 Hot Or Cold Packs Completed 06/30/2021 02554 Hot Or Cold Packs Completed 06/30/2021 39602 Electrical Stimulati on Manual, Each 15 Min, Constant Attendance Completed 06/30/2021 84530 Therapeutic Procedure, Each 15 M inutes Completed 06/30/2021 81515 Therapeutic Procedure, Each 15 M inutes Completed 06/28/2021 54511 Therapeutic Procedure, Each 15 M inutes Completed 06/28/2021 27385 Therapeutic Procedure, Each 15 M inutes Completed 06/28/2021 47219 Electrical Stimulati on Manual, Each 15 Min, Constant Attendance Completed 06/28/2021 34220 Hot Or Cold Packs Completed 06/26/2021 53289 Physical Therapy Eval - Low Comp lexity Completed 06/22/2021 80754 Arthroscopy Knee W/M eniscectomy Inc Chondroplasty (Med Or Lateral Completed 04/10/2021 37032 Office/Outpatient Established Mo d MDM 30-39 Min Completed 04/04/2021 15807 Office/Outpatient Established Lo w MDM 20-29 Min Completed 03/24/2021 26431 MRI Lower Extremity Any Joint Co mpleted [...] other orthopedic aftercare Office Visit 06/26/2021 3:15p lAfred Martinez MD Z47.89 Encounter for other orthopedic aftercare Office Visit 04/10/2021 2:15p Alfrde Martinez MD M17.12 Unilateral primary osteoarthritis, left knee M94.262 Chondromalacia, left knee Office Visit 04/04/2021 3:45p Rochelle ParkFELECIA Garrett M17.32 Unilateral post-traumatic osteoarthritis, left knee M94.262 Chondromalacia, left knee Assessments Date Code Description Provider 09/07/2021 Z47.89 Encounter for other orthopedic a tony Mayer PA-C 09/07/2021 M25.562 Pain in left knee Jimenez polo PA-C 08/29/2021 M25.562 Pain in left knee [facility] 08/29/2021 Z47.89 Encounter for other orthopedic a BAUDILIO Stratton 08/24/2021 Z47.89 Encounter for other orthopedic a [...] for other orthopedic a ftercare Madonna Vanfelecia, [facility] 06/28/2021 Z47.89 Encounter for other orthopedic a ftercare Madonna Vanfelecia, [facility] 06/26/2021 Z47.89 Encounter for other orthopedic a ftercare Madonna Vanfelecia, [facility] 06/26/2021 Z47.89 Encounter for other orthopedic [...] PASSED TO PT DE PT. LS [place] [address] [phone] Jimenez Mayer PA-C PT LT KNEE OK TO [facility] 2ND SET AFTER SURGERY. PASSED TO PT DEPT. MARIA A Created [address] [place] [address] [phone] Flaco Martinez MD PT LT KNEE OK TO [facility] 1ST SET AFTER SURGERY. L S Created [address] [place] [address] [phone] Flaco Martinez MD CRUTCHES OK TO SUPPLY HERE. MARIA A Created [place] [address] [phone] Flaco Martinez MD SURGERY LT KNEE DX ARTHROSCO PY WRITTEN AUTH PASSED TO SURGERY. MARIA A Created [facility], [address] [phone]
--- OUTSIDE RECORDS SUMMARY | 2021-11-02 08:34 | CCD | Continuity of Care Document ---
Author Author Edith DELEON MSPT Organization Unknown Address [address] [place] [address] Phone [phone] Care Team Providers Care Kennel Technician Name Role Phone Holly Brothers SAW AUTM [phone] Mahesh Monaco MD AUTM [phone] Faiza Gupta MD AUTM [phone] Mahesh Monaco MD AUTM [phone] Problems Active Problems Provider Date Patellar tendonitis Onset: 09/22/1999 Social History Type Date Description Comments Sex Unknown ETOH Use Denies alcohol use Tobacco Use Start: Unknown End: Unknown Patient is a former smoker Smoking Status Reviewed: 08/01/21 Patient is a former smoker Allergies, Adverse Reactions, Alerts Active Allergies Criticality Reaction | Severity Comments [...] Available Vital Signs Date Vital Result Comment 06/26/2021 3:18pm Body Temperature 96.9 F 09/15/2018 8:40am Body Temperature 98.8 F Height 63 inches 5'3" Weight 151.00 lb BMI (Body Mass Index) 26.7 kg/m2 Results Test Acquired Date Facility Test Result H/L Range Note Laboratory test finding 05/25/2021 In House Covid Rapid Testing NEGATIVE Procedures Date Code Description Status 08/24/2021 22153 Therapeutic Procedure, Each 15 M inutes Completed 08/24/2021 33086 Electrical Stimulati on Manual, Each 15 Min, Constant Attendance Completed 08/24/2021 44818 Hot Or Cold Packs Completed 08/24/2021 03944 Therapeutic Procedure, Each 15 M inutes Completed 08/22/2021 45821 Therapeutic Procedure, Each 15 M inutes Completed 08/22/2021 02643 Therapeutic Procedure, Each 15 M inutes Completed 08/22/2021 58839 Electrical Stimulati on Manual, Each 15 Min, Constant Attendance Completed 08/22/2021 20970 Hot Or Cold Packs Completed 08/17/2021 75491 Electrical Stimulati on Manual, Each 15 Min, Constant Attendance Completed 08/17/2021 27059 Therapeutic Procedure, Each 15 M inutes Completed 08/17/2021 16837 Therapeutic Procedure, Each 15 M inutes Completed 08/15/2021 04969 Therapeutic Procedure, Each 15 M inutes Completed 08/15/2021 65493 Therapeutic Procedure, Each 15 M inutes Completed 08/15/2021 09160 Electrical Stimulati on Manual, Each 15 Min, Constant Attendance Completed 08/15/2021 61894 Hot Or Cold Packs Completed 08/10/2021 01244 Therapeutic Procedure, Each 15 M inutes Completed 08/10/2021 47475 Therapeutic Procedure, Each 15 M inutes Completed 08/10/2021 80741 Electrical Stimulati on Manual, Each 15 Min, Constant Attendance Completed 08/10/2021 59588 Hot Or Cold Packs Completed 08/08/2021 57231 Therapeutic Procedure, Each 15 M inutes Completed 08/08/2021 85097 Hot Or Cold Packs Completed 08/08/2021 36814 Electrical Stimulati on Manual, Each 15 Min, Constant Attendance Completed 08/08/2021 07625 Therapeutic Procedure, Each 15 M inutes Completed 08/03/2021 04096 Therapeutic Procedure, Each 15 M inutes Completed 08/03/2021 61762 Therapeutic Procedure, Each 15 M inutes Completed 08/01/2021 26413 Therapeutic Procedure, Each 15 M inutes Completed 08/01/2021 90151 Therapeutic Procedure, Each 15 M inutes Completed 08/01/2021 29384 Electrical Stimulati on Manual, Each 15 Min, Constant Attendance Completed 08/01/2021 72650 Hot Or Cold Packs Completed 07/27/2021 52840 Therapeutic Procedure, Each 15 M inutes Completed 07/27/2021 73108 Therapeutic Procedure, Each 15 M inutes Completed 07/27/2021 18844 Electrical Stimulati on Manual, Each 15 Min, Constant Attendance Completed 07/27/2021 32074 Hot Or Cold Packs Completed 07/25/2021 80434 Therapeutic Procedure, Each 15 M inutes Completed 07/25/2021 55870 Therapeutic Procedure, Each 15 M inutes Completed 07/25/2021 61938 Electrical Stimulati on Manual, Each 15 Min, Constant Attendance Completed 07/25/2021 40738 Hot Or Cold Packs Completed 07/20/2021 57976 Electrical Stimulati on Manual, Each 15 Min, Constant Attendance Completed 07/20/2021 63684 Hot Or Cold Packs Completed 07/20/2021 50705 Re-Eval Of PT Establ ished Plan Of Care 20Mins Face To Face PT/Fam Completed 07/20/2021 14599 Therapeutic Procedure, Each 15 M inutes Completed 07/20/2021 36203 Therapeutic Procedure, Each 15 M inutes Completed 07/18/2021 95804 Therapeutic Procedure, Each 15 M inutes Completed 07/18/2021 09785 Therapeutic Procedure, Each 15 M inutes Completed 07/18/2021 73310 Electrical Stimulati on Manual, Each 15 Min, Constant Attendance Completed 07/13/2021 10737 Therapeutic Procedure, Each 15 M inutes Completed 07/13/2021 87316 Therapeutic Procedure, Each 15 M inutes Completed 07/13/2021 36801 Electrical Stimulati on Manual, Each 15 Min, Constant Attendance Completed 07/13/2021 82796 Hot Or Cold Packs Completed 07/11/2021 35400 Therapeutic Procedure, Each 15 M inutes Completed 07/11/2021 11647 Hot Or Cold Packs Completed 07/11/2021 49780 Electrical Stimulati on Manual, Each 15 Min, Constant Attendance Completed 07/11/2021 71509 Therapeutic Procedure, Each 15 M inutes Completed 07/06/2021 54060 Therapeutic Procedure, Each 15 M inutes Completed 07/06/2021 08635 Therapeutic Procedure, Each 15 M inutes Completed 07/06/2021 27170 Electrical Stimulati on Manual, Each 15 Min, Constant Attendance Completed 07/06/2021 98245 Hot Or Cold Packs Completed 07/04/2021 43486 Manual Therapy Each 15 Minutes C ompleted 07/04/2021 38665 Hot Or Cold Packs Completed 07/04/2021 51822 Therapeutic Procedure, Each 15 M inutes Completed 07/04/2021 49340 Therapeutic Procedure, Each 15 M inutes Completed 06/30/2021 05971 Therapeutic Procedure, Each 15 M inutes Completed 06/30/2021 43042 Therapeutic Procedure, Each 15 M inutes Completed 06/30/2021 58705 Electrical Stimulati on Manual, Each 15 Min, Constant Attendance Completed 06/30/2021 48504 Hot Or Cold Packs Completed 06/28/2021 74205 Therapeutic Procedure, Each 15 M inutes Completed 06/28/2021 54045 Therapeutic Procedure, Each 15 M inutes Completed 06/28/2021 60845 Electrical Stimulati on Manual, Each 15 Min, Constant Attendance Completed 06/28/2021 54425 Hot Or Cold Packs Completed 06/26/2021 82045 Physical Therapy Eval - Low Comp lexity Completed 06/22/2021 82237 Arthroscopy Knee W/M eniscectomy Inc Chondroplasty (Med Or Lateral Completed 04/10/2021 07285 Office/Outpatient Established Mo d MDM 30-39 Min Completed 04/04/2021 06901 Office/Outpatient Established w [facility] 20-29 Min Completed 03/24/2021 88443 MRI Lower Extremity Any Joint Co mpleted Medical Devices Description No Information Available Encounters Type Date Location Provider Dx Diagnosis Office Visit 08/24/2021 5:15p Alfred Chin PA-C [...] Chondromalacia, left knee Office Visit 04/04/2021 3:45p ASHLEY Bethea M17.32 Unilateral post-traumatic osteoarthritis, left knee M94.262 Chondromalacia, left knee Assessments Date Code Description Provider 08/24/2021 Z47.89 Encounter for other orthopedic a ftercare Jimenez Chin PA-C 08/24/2021 M25.562 Pain in left knee Jimenez polo PA-C 08/24/2021 Z47.89 Encounter for other orthopedic a ftercare Madonna Deleon, [facility] 08/22/2021 Z47.89 Encounter for other orthopedic a ftercare Madonna [facility]le[facility], [facility] 08/17/2021 Z47.89 Encounter for other orthopedic a ftercare Júnior Damon P.T. 08/15/2021 Z47.89 Encounter for other orthopedic a ftercare Madonna Deleon, [facility] 08/10/2021 Z47.89 Encounter for other orthopedic a ftercare Madonna Deleon, [facility] 08/08/2021 Z47.89 Encounter for other orthopedic a ftercare Madonna M. Rehanpa, [facility] 08/03/2021 Z47.89 Encounter for other orthopedic [...] other orthopedic a ftercare Madonna M. Vespa, [facility] 07/18/2021 Z47.89 Encounter for other orthopedic a ftercare Madonna M. Vespa, [facility] 07/13/2021 Z47.89 Encounter for other orthopedic a ftercare Madonna M. Vespa, [facility] 07/11/2021 Z47.89 Encounter for other orthopedic a ftercare Madonna M. Vespa, [facility] 07/06/2021 Z47.89 Encounter for other orthopedic a ftercare Madonna M. Vespa, [facility] 07/04/2021 Z47.89 Encounter for other orthopedic a ftercare Madonna M. Vespa, [facility] 07/03/2021 Z47.89 Encounter for other orthopedic a ftercare Jimenez Chin PA-C 06/30/2021 Z47.89 Encounter for other orthopedic a ftercare Madonna M. Vespa, [facility] 06/28/2021 Z47.89 Encounter for other orthopedic a ftercare Madonna M. Vespa, [facility] 06/26/2021 Z47.89 Encounter for other orthopedic a ftercare Madonna M. Vespa, [facility] 06/26/2021 Z47.89 Encounter for other orthopedic a [...] M17.32 Unilateral post-traumatic osteoa rthritis, left knee ASHLEY Boo 04/04/2021 M94.262 Chondromalacia, left knee ASHLEY Levy 03/24/2021 M17.12 Unilateral primary osteoarthriti s, left knee ASHLEY Boo 03/24/2021 M17.12 Unilateral primary osteoarthriti s, left knee MRI Plan of Treatment Future Appointment(s):* 09/07/2021 1:15 pm - Jimenez Chin PA-C at [place] Functional Status Description No Information Available Mental Status Description No Information Available Referrals Refer to Dr Reason for Referral Status Appt Date Jimenez Chin PA-C PT LT KNEE OK TO [facility] 2ND SET AFTER SURGERY. PASSED TO PT DEPT. LS Created [address] [place] [address] [place] [address] [phone] Flaco Martinez MD PT LT KNEE OK TO [facility] 1ST SET AFTER SURGERY. L S Created [address] [place] [address], [address] [place] [address] [phone] Flaco Martinez MD CRUTCHES OK TO SUPPLY HERE. MARIA A Created [address] [facility], [address] [place] [address] [phone] Flaco Martinez MD SURGERY LT KNEE DX ARTHROSCO PY WRITTEN AUTH PASSED TO SURGERY. MARIA A Created [address] [facility], [address] [place] [address] [phone] January Cuevas MD MRI LT KNEE WRITTEN AUTH AND ONECALL TO [facility]. MARIA A 03/16/21 PER ONECALL WE CAN SHA HERE VS VENDOR. PASSED TO XRAY. MARIA A Created [address] [facility], [address] [place] [address] [phone]
--- OUTSIDE RECORDS SUMMARY | 2021-11-02 08:34 | CCD | Continuity of Care Document ---
Author Author Edith DELEON MSPT Organization Unknown Address [address] [place] [address] Phone [phone] Care Team Providers Care Research Director Name Role Phone [employer] SAW AUTM [phone] Mahesh Monaco MD AUTM [phone] Faiza Gupta MD AUTM Mahesh Monaco MD AUTM [phone] Problems Active Problems Provider Date Patellar tendonitis [...] NEGATIVE Procedures Date Code Description Status 08/24/2021 34547 Therapeutic Procedure, Each 15 M inutes Completed 08/24/2021 62779 Electrical Stimulati on Manual, Each 15 Min, Constant Attendance Completed 08/24/2021 93981 Hot Or Cold Packs Completed 08/24/2021 68792 Therapeutic Procedure, Each 15 M inutes Completed 08/22/2021 60576 Therapeutic Procedure, Each 15 M inutes Completed 08/22/2021 53050 Therapeutic Procedure, Each 15 M inutes Completed 08/22/2021 03740 Electrical Stimulati on Manual, Each 15 Min, Constant Attendance Completed 08/22/2021 64869 Hot Or Cold Packs Completed 08/17/2021 43884 Electrical Stimulati on Manual, Each 15 Min, Constant Attendance Completed 08/17/2021 60187 Therapeutic Procedure, Each 15 M inutes Completed 08/17/2021 64408 Therapeutic Procedure, Each 15 M inutes Completed 08/15/2021 99457 Therapeutic Procedure, Each 15 M inutes Completed 08/15/2021 47116 Therapeutic Procedure, Each 15 M inutes Completed 08/15/2021 40584 Electrical Stimulati on Manual, Each 15 Min, Constant Attendance Completed 08/15/2021 70016 Hot Or Cold Packs Completed 08/10/2021 69456 Therapeutic Procedure, Each 15 M inutes Completed 08/10/2021 67058 Therapeutic Procedure, Each 15 M inutes Completed 08/10/2021 51970 Electrical Stimulati on Manual, Each 15 Min, Constant Attendance Completed 08/10/2021 28781 Hot Or Cold Packs Completed 08/08/2021 11552 Therapeutic Procedure, Each 15 M inutes Completed 08/08/2021 62260 Hot Or Cold Packs Completed 08/08/2021 92191 Electrical Stimulati on Manual, Each 15 Min, Constant Attendance Completed 08/08/2021 66255 Therapeutic Procedure, Each 15 M inutes Completed 08/03/2021 44119 Therapeutic Procedure, Each 15 M inutes Completed 08/03/2021 64133 Therapeutic Procedure, Each 15 M inutes Completed 08/01/2021 50937 Therapeutic Procedure, Each 15 M inutes Completed 08/01/2021 34700 Therapeutic Procedure, Each 15 M inutes Completed 08/01/2021 63399 Electrical Stimulati on Manual, Each 15 Min, Constant Attendance Completed 08/01/2021 55109 Hot Or Cold Packs Completed 07/27/2021 44605 Therapeutic Procedure, Each 15 M inutes Completed 07/27/2021 24979 Therapeutic Procedure, Each 15 M inutes Completed 07/27/2021 08109 Electrical Stimulati on Manual, Each 15 Min, Constant Attendance Completed 07/27/2021 59618 Hot Or Cold Packs Completed 07/25/2021 37977 Therapeutic Procedure, Each 15 M inutes Completed 07/25/2021 17327 Therapeutic Procedure, Each 15 M inutes Completed 07/25/2021 08694 Electrical Stimulati on Manual, Each 15 Min, Constant Attendance Completed 07/25/2021 25256 Hot Or Cold Packs Completed 07/20/2021 27460 Electrical Stimulati on Manual, Each 15 Min, Constant Attendance Completed 07/20/2021 59936 Hot Or Cold Packs Completed 07/20/2021 69919 Re-Eval Of PT Establ ished Plan Of Care 20Mins Face To Face PT/Fam Completed 07/20/2021 96996 Therapeutic Procedure, Each 15 M inutes Completed 07/20/2021 15051 Therapeutic Procedure, Each 15 M inutes Completed 07/18/2021 60362 Therapeutic Procedure, Each 15 M inutes Completed 07/18/2021 19343 Therapeutic Procedure, Each 15 M inutes Completed 07/18/2021 65732 Electrical Stimulati on Manual, Each 15 Min, Constant Attendance Completed 07/13/2021 16574 Therapeutic Procedure, Each 15 M inutes Completed 07/13/2021 88148 Therapeutic Procedure, Each 15 M inutes Completed 07/13/2021 01108 Electrical Stimulati on Manual, Each 15 Min, Constant Attendance Completed 07/13/2021 57618 Hot Or Cold Packs Completed 07/11/2021 25127 Therapeutic Procedure, Each 15 M inutes Completed 07/11/2021 44574 Hot Or Cold Packs Completed 07/11/2021 67188 Electrical Stimulati on Manual, Each 15 Min, Constant Attendance Completed 07/11/2021 40749 Therapeutic Procedure, Each 15 M inutes Completed 07/06/2021 53069 Therapeutic Procedure, Each 15 M inutes Completed 07/06/2021 95328 Therapeutic Procedure, Each 15 M inutes Completed 07/06/2021 41495 Electrical Stimulati on Manual, Each 15 Min, Constant Attendance Completed 07/06/2021 54316 Hot Or Cold Packs Completed 07/04/2021 10354 Manual Therapy Each 15 Minutes C ompleted 07/04/2021 74360 Hot Or Cold Packs Completed 07/04/2021 72379 Therapeutic Procedure, Each 15 M inutes Completed 07/04/2021 84649 Therapeutic Procedure, Each 15 M inutes Completed 06/30/2021 16662 Therapeutic Procedure, Each 15 M inutes Completed 06/30/2021 07992 Therapeutic Procedure, Each 15 M inutes Completed 06/30/2021 35996 Electrical Stimulati on Manual, Each 15 Min, Constant Attendance Completed 06/30/2021 71766 Hot Or Cold Packs Completed 06/28/2021 07297 Therapeutic Procedure, Each 15 M inutes Completed 06/28/2021 12649 Therapeutic Procedure, Each 15 M inutes Completed 06/28/2021 13843 Electrical Stimulati on Manual, Each 15 Min, Constant Attendance Completed 06/28/2021 38699 Hot Or Cold Packs Completed 06/26/2021 94274 Physical Therapy Eval - Low Comp lexity Completed 06/22/2021 61477 Arthroscopy Knee W/M eniscectomy Inc Chondroplasty (Med Or Lateral Completed 04/10/2021 96101 Office/Outpatient Established Mo d MDM 30-39 Min Completed 04/04/2021 17784 Office/Outpatient Established w [facility] 20-29 Min Completed 03/24/2021 23813 MRI Lower Extremity Any Joint Co mpleted [...] for other orthopedic a ftercare Madonna Deleon, [facility] 08/22/2021 Z47.89 Encounter for other orthopedic a ftercare Madonna Deleon, [facility] 08/17/2021 Z47.89 Encounter for other orthopedic a ftercare Júnior Damon P.T. 08/15/2021 Z47.89 Encounter for other orthopedic a ftercare Madonna Deleon, [facility] 08/10/2021 Z47.89 Encounter for other orthopedic a ftercare Madonna Deleon, [facility] 08/08/2021 Z47.89 Encounter for other orthopedic [...] other orthopedic a ftercare Madonna M. Vespa, [facility] 07/18/2021 Z47.89 Encounter for other orthopedic a ftercare Madonna M. Vespa, [facility] 07/13/2021 Z47.89 Encounter for other orthopedic a ftercare Madonna M. Vespa, [facility] 07/11/2021 Z47.89 Encounter for other orthopedic a ftercare Madonna M. Vespa, [facility] 07/06/2021 Z47.89 Encounter for other orthopedic a ftercare Madonna M. Vespa, [facility] 07/04/2021 Z47.89 Encounter for other orthopedic a ftercare Madonna M. Vespa, [facility] 07/03/2021 Z47.89 Encounter for other orthopedic a ftercare Jimenez Chin PA-C 06/30/2021 Z47.89 Encounter for other orthopedic a ftercare Madonna M. Vespa, [facility] 06/28/2021 Z47.89 Encounter for other orthopedic a ftercare Madonna M. Vespa, [facility] 06/26/2021 Z47.89 Encounter for other orthopedic a ftercare Madonna M. Vespa, [facility] 06/26/2021 Z47.89 Encounter for other orthopedic [...] 1:15 pm - Jimenez Chin PA-C at [place] Functional Status Description No Information Available Mental Status Description No Information Available Referrals Refer to Dr Reason for Referral Status Appt Date Jimenez Chin PA-C PT LT KNEE OK TO [facility] 2ND SET AFTER SURGERY. PASSED TO PT DEPT. LS Created [address] [place] [address] [place] [address] [phone] Flaco Martinez MD PT LT KNEE OK TO [facility] 1ST SET AFTER SURGERY. L S Created [address] [place] [address], [address] [place] [address] [phone] Flaco Martinez MD CRUTCHES OK TO SUPPLY HERE. MARIA A Created [address] [facility], [address] [place] [address] [phone] Flaco Martinez MD SURGERY LT KNEE DX ARTHROSCO PY WRITTEN AUTH PASSED TO SURGERY. MARIA A Created [address] [facility], [address] [place] [address] [phone] January Cuevas MD MRI LT KNEE WRITTEN AUTH AND ONECALL TO [facility]. MARIA A 03/16/21 PER ONECALL WE CAN SHA HERE VS VENDOR. PASSED TO XRAY. MARIA A Created [address] [facility], [address] [place] [address] [phone]
--- OUTSIDE RECORDS SUMMARY | 2021-11-02 08:34 | CCD | Continuity of Care Document ---
Author Author Edith YO MSPT Organization Unknown Address [address] [place] [address] Phone [phone] Care Team Providers Care Manager Quality Name Role Phone [employer] SAW AUTM [phone] Mahesh Monaco MD AUTM [phone] Faiza Gupta MD AUTM [phone] Mahesh Monaco MD AUTM [phone] Problems Active Problems Provider Date Patellar tendonitis [...] NEGATIVE Procedures Date Code Description Status 08/29/2021 40290 Therapeutic Procedure, Each 15 M inutes Completed 08/29/2021 07599 Therapeutic Procedure, Each 15 M inutes Completed 08/24/2021 44694 Therapeutic Procedure, Each 15 M inutes Completed 08/24/2021 93848 Therapeutic Procedure, Each 15 M inutes Completed 08/24/2021 17924 Electrical Stimulati on Manual, Each 15 Min, Constant Attendance Completed 08/24/2021 83380 Hot Or Cold Packs Completed 08/22/2021 38870 Hot Or Cold Packs Completed 08/22/2021 49350 Electrical Stimulati on Manual, Each 15 Min, Constant Attendance Completed 08/22/2021 07888 Therapeutic Procedure, Each 15 M inutes Completed 08/22/2021 40917 Therapeutic Procedure, Each 15 M inutes Completed 08/17/2021 85627 Therapeutic Procedure, Each 15 M inutes Completed 08/17/2021 32188 Therapeutic Procedure, Each 15 M inutes Completed 08/17/2021 53351 Electrical Stimulati on Manual, Each 15 Min, Constant Attendance Completed 08/15/2021 33789 Therapeutic Procedure, Each 15 M inutes Completed 08/15/2021 24018 Therapeutic Procedure, Each 15 M inutes Completed 08/15/2021 71410 Electrical Stimulati on Manual, Each 15 Min, Constant Attendance Completed 08/15/2021 39061 Hot Or Cold Packs Completed 08/10/2021 89054 Therapeutic Procedure, Each 15 M inutes Completed 08/10/2021 24558 Hot Or Cold Packs Completed 08/10/2021 11295 Electrical Stimulati on Manual, Each 15 Min, Constant Attendance Completed 08/10/2021 55707 Therapeutic Procedure, Each 15 M inutes Completed 08/08/2021 31483 Therapeutic Procedure, Each 15 M inutes Completed 08/08/2021 62502 Therapeutic Procedure, Each 15 M inutes Completed 08/08/2021 43498 Electrical Stimulati on Manual, Each 15 Min, Constant Attendance Completed 08/08/2021 80713 Hot Or Cold Packs Completed 08/03/2021 86493 Therapeutic Procedure, Each 15 M inutes Completed 08/03/2021 71690 Therapeutic Procedure, Each 15 M inutes Completed 08/01/2021 83747 Therapeutic Procedure, Each 15 M inutes Completed 08/01/2021 43276 Therapeutic Procedure, Each 15 M inutes Completed 08/01/2021 25693 Electrical Stimulati on Manual, Each 15 Min, Constant Attendance Completed 08/01/2021 08896 Hot Or Cold Packs Completed 07/27/2021 92355 Therapeutic Procedure, Each 15 M inutes Completed 07/27/2021 13175 Therapeutic Procedure, Each 15 M inutes Completed 07/27/2021 57747 Electrical Stimulati on Manual, Each 15 Min, Constant Attendance Completed 07/27/2021 18222 Hot Or Cold Packs Completed 07/25/2021 57293 Electrical Stimulati on Manual, Each 15 Min, Constant Attendance Completed 07/25/2021 84501 Hot Or Cold Packs Completed 07/25/2021 79349 Therapeutic Procedure, Each 15 M inutes Completed 07/25/2021 96272 Therapeutic Procedure, Each 15 M inutes Completed 07/20/2021 64290 Therapeutic Procedure, Each 15 M inutes Completed 07/20/2021 60484 Therapeutic Procedure, Each 15 M inutes Completed 07/20/2021 49005 Electrical Stimulati on Manual, Each 15 Min, Constant Attendance Completed 07/20/2021 61727 Hot Or Cold Packs Completed 07/20/2021 20369 Re-Eval Of PT Establ ished Plan Of Care 20Mins Face To Face PT/Fam Completed 07/18/2021 71353 Therapeutic Procedure, Each 15 M inutes Completed 07/18/2021 14808 Therapeutic Procedure, Each 15 M inutes Completed 07/18/2021 97931 Electrical Stimulati on Manual, Each 15 Min, Constant Attendance Completed 07/13/2021 73526 Therapeutic Procedure, Each 15 M inutes Completed 07/13/2021 81113 Hot Or Cold Packs Completed 07/13/2021 57817 Electrical Stimulati on Manual, Each 15 Min, Constant Attendance Completed 07/13/2021 16780 Therapeutic Procedure, Each 15 M inutes Completed 07/11/2021 31672 Therapeutic Procedure, Each 15 M inutes Completed 07/11/2021 63673 Therapeutic Procedure, Each 15 M inutes Completed 07/11/2021 39872 Electrical Stimulati on Manual, Each 15 Min, Constant Attendance Completed 07/11/2021 71471 Hot Or Cold Packs Completed 07/06/2021 68355 Hot Or Cold Packs Completed 07/06/2021 51311 Therapeutic Procedure, Each 15 M inutes Completed 07/06/2021 16560 Therapeutic Procedure, Each 15 M inutes Completed 07/06/2021 51490 Electrical Stimulati on Manual, Each 15 Min, Constant Attendance Completed 07/04/2021 87356 Manual Therapy Each 15 Minutes C ompleted 07/04/2021 93776 Therapeutic Procedure, Each 15 M inutes Completed 07/04/2021 94952 Therapeutic Procedure, Each 15 M inutes Completed 07/04/2021 72824 Hot Or Cold Packs Completed 06/30/2021 58526 Hot Or Cold Packs Completed 06/30/2021 65511 Electrical Stimulati on Manual, Each 15 Min, Constant Attendance Completed 06/30/2021 70526 Therapeutic Procedure, Each 15 M inutes Completed 06/30/2021 53129 Therapeutic Procedure, Each 15 M inutes Completed 06/28/2021 08974 Therapeutic Procedure, Each 15 M inutes Completed 06/28/2021 68606 Therapeutic Procedure, Each 15 M inutes Completed 06/28/2021 64546 Electrical Stimulati on Manual, Each 15 Min, Constant Attendance Completed 06/28/2021 53590 Hot Or Cold Packs Completed 06/26/2021 86914 Physical Therapy Eval - Low Comp lexity Completed 06/22/2021 31573 Arthroscopy Knee W/M eniscectomy Inc Chondroplasty (Med Or Lateral Completed 04/10/2021 73657 Office/Outpatient Established Mo d MDM 30-39 Min Completed 04/04/2021 72550 Office/Outpatient Established Lo w MDM 20-29 Min Completed 03/24/2021 08067 MRI Lower Extremity Any Joint Co mpleted [...] Z47.89 Encounter for other orthopedic a ftshala Chin PA-C 09/07/2021 M25.562 Pain in left knee Jimenez polo PA-C 08/29/2021 M25.562 Pain in left [facility] 08/29/2021 Z47.89 [facility] 08/24/2021 Z47.89 Encounter for other orthopedic a tony Chin PA-C 08/24/2021 M25.562 Pain in left knee Jimenez polo PA-C 08/24/2021 Z47.89 Encounter for other orthopedic a ftercare Madonna M. Rehanpa, [facility]SPT 08/22/2021 Z47.89 Encounter for other orthopedic [...] for other orthopedic a ftercare [facility], [facility] 06/28/2021 Z47.89 Encounter for other orthopedic a ftercare [facility]felecia, [facility] 06/26/2021 Z47.89 Encounter for other orthopedic a ftercare [facility]lecia, [facility] 06/26/2021 Z47.89 Encounter for other orthopedic [...] [facility] at Physical Therapy 09/07/2021 - Jimenez Chin PA-C* Z47.89 Encounter for other orthopedic aftercare [...] AUTH PASSED TO PT DE PT. Created [address] [place] [address] [phone] Jimenez Chin PA-C PT LT KNEE OK TO [facility] 2ND SET AFTER SURGERY. PASSED TO PT DEPT. MARIA A Created [address] [place] [address] [phone] Flaco Martinez MD PT LT KNEE OK TO [facility] 1ST SET AFTER SURGERY. L S Created [facility], [place] [address] [phone] Flaco Martinez MD CRUTCHES OK TO SUPPLY HERE. MARIA A Created [facility] [place] [address] [phone] Flaco Martinez MD SURGERY LT KNEE DX ARTHROSCO PY WRITTEN AUTH PASSED TO SURGERY. LS Created [facility], [address] [phone]
--- OUTSIDE RECORDS SUMMARY | 2021-11-02 08:34 | CCD | Continuity of Care Document ---
Author Author Edith YO MSPT Organization Unknown Address [address] [place] [address] Phone [phone] Care Team Providers Care Hair Or Beauty Salon Manager Name Role Phone [employer] SAW AUTM [phone] Mahesh Monaco MD AUTM [phone] Faiza Gupta MD AUTM Mahesh Monaco MD AUTM [phone] Problems Active Problems Provider Date Patellar tendonitis [...] NEGATIVE Procedures Date Code Description Status 10/03/2021 70492 Therapeutic Procedure, Each 15 M inutes Completed 10/03/2021 29103 Therapeutic Procedure, Each 15 M inutes Completed 09/26/2021 19535 Therapeutic Procedure, Each 15 M inutes Completed 09/26/2021 17765 Therapeutic Procedure, Each 15 M inutes Completed 09/21/2021 60839 Therapeutic Procedure, Each 15 M inutes Completed 09/21/2021 33346 Therapeutic Procedure, Each 15 M inutes Completed 08/29/2021 57744 Therapeutic Procedure, Each 15 M inutes Completed 08/29/2021 57082 Therapeutic Procedure, Each 15 M inutes Completed 08/24/2021 43728 Electrical Stimulati on Manual, Each 15 Min, Constant Attendance Completed 08/24/2021 55043 Hot Or Cold Packs Completed 08/24/2021 35364 Therapeutic Procedure, Each 15 M inutes Completed 08/24/2021 04577 Therapeutic Procedure, Each 15 M inutes Completed 08/22/2021 34788 Therapeutic Procedure, Each 15 M inutes Completed 08/22/2021 15834 Therapeutic Procedure, Each 15 M inutes Completed 08/22/2021 27861 Electrical Stimulati on Manual, Each 15 Min, Constant Attendance Completed 08/22/2021 29298 Hot Or Cold Packs Completed 08/17/2021 89279 Therapeutic Procedure, Each 15 M inutes Completed 08/17/2021 66539 Therapeutic Procedure, Each 15 M inutes Completed 08/17/2021 66836 Electrical Stimulati on Manual, Each 15 Min, Constant Attendance Completed 08/15/2021 02211 Therapeutic Procedure, Each 15 M inutes Completed 08/15/2021 50659 Hot Or Cold Packs Completed 08/15/2021 00644 Therapeutic Procedure, Each 15 M inutes Completed 08/15/2021 91449 Electrical Stimulati on Manual, Each 15 Min, Constant Attendance Completed 08/10/2021 02652 Therapeutic Procedure, Each 15 M inutes Completed 08/10/2021 06678 Therapeutic Procedure, Each 15 M inutes Completed 08/10/2021 11191 Electrical Stimulati on Manual, Each 15 Min, Constant Attendance Completed 08/10/2021 19049 Hot Or Cold Packs Completed 08/08/2021 00387 Hot Or Cold Packs Completed 08/08/2021 18760 Electrical Stimulati on Manual, Each 15 Min, Constant Attendance Completed 08/08/2021 03429 Therapeutic Procedure, Each 15 M inutes Completed 08/08/2021 18138 Therapeutic Procedure, Each 15 M inutes Completed 08/03/2021 41070 Therapeutic Procedure, Each 15 M inutes Completed 08/03/2021 00990 Therapeutic Procedure, Each 15 M inutes Completed 08/01/2021 32228 Therapeutic Procedure, Each 15 M inutes Completed 08/01/2021 56182 Therapeutic Procedure, Each 15 M inutes Completed 08/01/2021 80335 Electrical Stimulati on Manual, Each 15 Min, Constant Attendance Completed 08/01/2021 19276 Hot Or Cold Packs Completed 07/27/2021 26345 Hot Or Cold Packs Completed 07/27/2021 55383 Electrical Stimulati on Manual, Each 15 Min, Constant Attendance Completed 07/27/2021 46528 Therapeutic Procedure, Each 15 M inutes Completed 07/27/2021 88502 Therapeutic Procedure, Each 15 M inutes Completed 07/25/2021 01521 Therapeutic Procedure, Each 15 M inutes Completed 07/25/2021 00659 Therapeutic Procedure, Each 15 M inutes Completed 07/25/2021 51000 Electrical Stimulati on Manual, Each 15 Min, Constant Attendance Completed 07/25/2021 52682 Hot Or Cold Packs Completed 07/20/2021 04212 Hot Or Cold Packs Completed 07/20/2021 88171 Electrical Stimulati on Manual, Each 15 Min, Constant Attendance Completed 07/20/2021 59332 Therapeutic Procedure, Each 15 M inutes Completed 07/20/2021 43436 Therapeutic Procedure, Each 15 M inutes Completed 07/20/2021 30299 Re-Eval Of PT Establ ished Plan Of Care 20Mins Face To Face PT/Fam Completed 07/18/2021 49577 Therapeutic Procedure, Each 15 M inutes Completed 07/18/2021 32764 Therapeutic Procedure, Each 15 M inutes Completed 07/18/2021 32390 Electrical Stimulati on Manual, Each 15 Min, Constant Attendance Completed 07/13/2021 99940 Therapeutic Procedure, Each 15 M inutes Completed 07/13/2021 79046 Therapeutic Procedure, Each 15 M inutes Completed 07/13/2021 48932 Electrical Stimulati on Manual, Each 15 Min, Constant Attendance Completed 07/13/2021 43916 Hot Or Cold Packs Completed 07/11/2021 90431 Hot Or Cold Packs Completed 07/11/2021 55760 Electrical Stimulati on Manual, Each 15 Min, Constant Attendance Completed 07/11/2021 10166 Therapeutic Procedure, Each 15 M inutes Completed 07/11/2021 82264 Therapeutic Procedure, Each 15 M inutes Completed 07/06/2021 87908 Therapeutic Procedure, Each 15 M inutes Completed 07/06/2021 65880 Therapeutic Procedure, Each 15 M inutes Completed 07/06/2021 31272 Electrical Stimulati on Manual, Each 15 Min, Constant Attendance Completed 07/06/2021 11017 Hot Or Cold Packs Completed 07/04/2021 45660 Manual Therapy Each 15 Minutes C ompleted 07/04/2021 95361 Therapeutic Procedure, Each 15 M inutes Completed 07/04/2021 11395 Therapeutic Procedure, Each 15 M inutes Completed 07/04/2021 62248 Hot Or Cold Packs Completed 06/30/2021 48157 Therapeutic Procedure, Each 15 M inutes Completed 06/30/2021 01510 Hot Or Cold Packs Completed 06/30/2021 43129 Electrical Stimulati on Manual, Each 15 Min, Constant Attendance Completed 06/30/2021 60025 Therapeutic Procedure, Each 15 M inutes Completed 06/28/2021 00883 Therapeutic Procedure, Each 15 M inutes Completed 06/28/2021 77883 Therapeutic Procedure, Each 15 M inutes Completed 06/28/2021 19469 Electrical Stimulati on Manual, Each 15 Min, Constant Attendance Completed 06/28/2021 02620 Hot Or Cold Packs Completed 06/26/2021 61463 Physical Therapy Eval - Low Comp lexity Completed 06/22/2021 43100 Arthroscopy Knee W/M eniscectomy Inc Chondroplasty (Med Or Lateral Completed 04/10/2021 19102 Office/Outpatient Established Mo d MDM 30-39 Min Completed 04/04/2021 67522 Office/Outpatient Established Lo w MDM 20-29 Min [...] other orthopedic a ftercare [facility] 07/11/2021 Z47.89 Encounter for other orthopedic a ftercare Madonna M. Vespa, [facility] 07/06/2021 Z47.89 Encounter for other orthopedic a ftercare Madonna M. Vespa, [facility] 07/04/2021 Z47.89 Encounter for other orthopedic a ftercare Madonna M. Vespa, [facility] 07/03/2021 Z47.89 Encounter for other orthopedic a ftercare Jimenez Chin PA-C 06/30/2021 Z47.89 Encounter for other orthopedic a ftercare [facility] M[facility] Re[facility], [facility] 06/28/2021 Z47.89 Encounter for other orthopedic a ftercare Madonna M. Vespa, [facility] 06/26/2021 Z47.89 Encounter for other orthopedic a ftercare Madonna M. Rehanpa, [facility] 06/26/2021 Z47.89 Encounter for other [...] PASSED TO PT DE PT. LS Created [facility], [address] [phone] Jimenez Chin, PA-C PT LT KNEE OK TO [facility] 2ND SET AFTER SURGERY. PASSED TO PT DEPT. LS Created [facility] [place] [address] [phone] Flaco Martinez MD PT LT KNEE OK TO [facility] 1ST SET AFTER SURGERY. L S Created [facility], [place] [address] [phone] Flaco Martinez MD CRUTCHES OK TO SUPPLY HERE. LS Created [facility] [address] [address] [phone] Flaco Martinez MD SURGERY LT KNEE DX ARTHROSCO PY WRITTEN AUTH PASSED TO SURGERY. LS Created [address] [facility], [address] [place] [address] [phone]
--- OUTSIDE RECORDS SUMMARY | 2021-11-02 08:34 | CCD | Continuity of Care Document ---
Author Author Edith CHIN PA-C Organization Unknown Address [address] [address] Phone [phone] Care Team Providers Care Applications Sales Representative Name Role Phone [employer] SAW AUTM [phone] Mahesh Monaco MD AUTM [phone] Faiza Gupta MD AUTM Mahesh Monaco MD AUTM [phone] Problems Active Problems Provider Date Patellar tendonitis [...] NEGATIVE Procedures Date Code Description Status 08/29/2021 65715 Therapeutic Procedure, Each 15 M inutes Completed 08/29/2021 54458 Therapeutic Procedure, Each 15 M inutes Completed 08/24/2021 88434 Therapeutic Procedure, Each 15 M inutes Completed 08/24/2021 95026 Therapeutic Procedure, Each 15 M inutes Completed 08/24/2021 38073 Electrical Stimulati on Manual, Each 15 Min, Constant Attendance Completed 08/24/2021 57386 Hot Or Cold Packs Completed 08/22/2021 27532 Hot Or Cold Packs Completed 08/22/2021 48886 Electrical Stimulati on Manual, Each 15 Min, Constant Attendance Completed 08/22/2021 52034 Therapeutic Procedure, Each 15 M inutes Completed 08/22/2021 53424 Therapeutic Procedure, Each 15 M inutes Completed 08/17/2021 59598 Therapeutic Procedure, Each 15 M inutes Completed 08/17/2021 47339 Therapeutic Procedure, Each 15 M inutes Completed 08/17/2021 11095 Electrical Stimulati on Manual, Each 15 Min, Constant Attendance Completed 08/15/2021 66263 Therapeutic Procedure, Each 15 M inutes Completed 08/15/2021 70259 Therapeutic Procedure, Each 15 M inutes Completed 08/15/2021 88129 Electrical Stimulati on Manual, Each 15 Min, Constant Attendance Completed 08/15/2021 68444 Hot Or Cold Packs Completed 08/10/2021 24223 Therapeutic Procedure, Each 15 M inutes Completed 08/10/2021 46629 Hot Or Cold Packs Completed 08/10/2021 38381 Electrical Stimulati on Manual, Each 15 Min, Constant Attendance Completed 08/10/2021 05410 Therapeutic Procedure, Each 15 M inutes Completed 08/08/2021 30194 Therapeutic Procedure, Each 15 M inutes Completed 08/08/2021 88032 Therapeutic Procedure, Each 15 M inutes Completed 08/08/2021 91846 Electrical Stimulati on Manual, Each 15 Min, Constant Attendance Completed 08/08/2021 69511 Hot Or Cold Packs Completed 08/03/2021 85797 Therapeutic Procedure, Each 15 M inutes Completed 08/03/2021 34276 Therapeutic Procedure, Each 15 M inutes Completed 08/01/2021 35892 Therapeutic Procedure, Each 15 M inutes Completed 08/01/2021 98107 Therapeutic Procedure, Each 15 M inutes Completed 08/01/2021 23816 Electrical Stimulati on Manual, Each 15 Min, Constant Attendance Completed 08/01/2021 02935 Hot Or Cold Packs Completed 07/27/2021 73832 Therapeutic Procedure, Each 15 M inutes Completed 07/27/2021 22931 Therapeutic Procedure, Each 15 M inutes Completed 07/27/2021 57968 Electrical Stimulati on Manual, Each 15 Min, Constant Attendance Completed 07/27/2021 25528 Hot Or Cold Packs Completed 07/25/2021 51112 Electrical Stimulati on Manual, Each 15 Min, Constant Attendance Completed 07/25/2021 08495 Hot Or Cold Packs Completed 07/25/2021 83399 Therapeutic Procedure, Each 15 M inutes Completed 07/25/2021 67435 Therapeutic Procedure, Each 15 M inutes Completed 07/20/2021 35253 Therapeutic Procedure, Each 15 M inutes Completed 07/20/2021 62283 Therapeutic Procedure, Each 15 M inutes Completed 07/20/2021 95829 Electrical Stimulati on Manual, Each 15 Min, Constant Attendance Completed 07/20/2021 14925 Hot Or Cold Packs Completed 07/20/2021 39998 Re-Eval Of PT Establ ished Plan Of Care 20Mins Face To Face PT/Fam Completed 07/18/2021 80680 Therapeutic Procedure, Each 15 M inutes Completed 07/18/2021 82762 Therapeutic Procedure, Each 15 M inutes Completed 07/18/2021 22310 Electrical Stimulati on Manual, Each 15 Min, Constant Attendance Completed 07/13/2021 45348 Therapeutic Procedure, Each 15 M inutes Completed 07/13/2021 15472 Hot Or Cold Packs Completed 07/13/2021 22320 Electrical Stimulati on Manual, Each 15 Min, Constant Attendance Completed 07/13/2021 03723 Therapeutic Procedure, Each 15 M inutes Completed 07/11/2021 97836 Therapeutic Procedure, Each 15 M inutes Completed 07/11/2021 91595 Therapeutic Procedure, Each 15 M inutes Completed 07/11/2021 69189 Electrical Stimulati on Manual, Each 15 Min, Constant Attendance Completed 07/11/2021 29732 Hot Or Cold Packs Completed 07/06/2021 18994 Hot Or Cold Packs Completed 07/06/2021 79950 Therapeutic Procedure, Each 15 M inutes Completed 07/06/2021 12885 Therapeutic Procedure, Each 15 M inutes Completed 07/06/2021 03680 Electrical Stimulati on Manual, Each 15 Min, Constant Attendance Completed 07/04/2021 19223 Manual Therapy Each 15 Minutes C ompleted 07/04/2021 87450 Therapeutic Procedure, Each 15 M inutes Completed 07/04/2021 87716 Therapeutic Procedure, Each 15 M inutes Completed 07/04/2021 51174 Hot Or Cold Packs Completed 06/30/2021 04313 Hot Or Cold Packs Completed 06/30/2021 85529 Electrical Stimulati on Manual, Each 15 Min, Constant Attendance Completed 06/30/2021 92175 Therapeutic Procedure, Each 15 M inutes Completed 06/30/2021 08193 Therapeutic Procedure, Each 15 M inutes Completed 06/28/2021 13430 Therapeutic Procedure, Each 15 M inutes Completed 06/28/2021 52311 Therapeutic Procedure, Each 15 M inutes Completed 06/28/2021 79470 Electrical Stimulati on Manual, Each 15 Min, Constant Attendance Completed 06/28/2021 82927 Hot Or Cold Packs Completed 06/26/2021 29325 Physical Therapy Eval - Low Comp lexity Completed 06/22/2021 71520 Arthroscopy Knee W/M eniscectomy Inc Chondroplasty (Med Or Lateral Completed 04/10/2021 02407 Office/Outpatient Established Mo d MDM 30-39 Min Completed 04/04/2021 57518 Office/Outpatient Established Lo w MDM 20-29 Min Completed 03/24/2021 37172 MRI Lower Extremity Any Joint Co mpleted [...] other orthopedic aftercare Office Visit 04/10/2021 2:15p [facility] Martinez MD M17.12 Unilateral primary osteoarthritis, left knee M94.262 Chondromalacia, left knee Office Visit 04/04/2021 3:45p ASHLEY Bethea M17.32 Unilateral post-traumatic osteoarthritis, left knee M94.262 Chondromalacia, left knee Assessments Date Code Description Provider 08/29/2021 Z47.89 Encounter for other orthopedic a ftercare [facility], [facility] 08/29/2021 M25.562 Pain in left knee Madonna izquierdo, [facility] 08/24/2021 Z47.89 Encounter for other orthopedic a ftercare Jimenez Chin PA-C 08/24/2021 M25.562 Pain in left knee Jimenez polo PA-C 08/24/2021 Z47.89 Encounter for other orthopedic a ftercare Madonna Deleon, [facility] 08/22/2021 Z47.89 Encounter for other orthopedic a ftercrashmi Deleon [facility] 08/17/2021 Z47.89 Encounter for other orthopedic a [...] Encounter for other orthopedic a ftercare Maodnna M. Vespa, [facility] 07/04/2021 Z47.89 Encounter for [...] 1:15 pm - Jimenez Chin PA-C at [facility] 08/24/2021 - Jimenez Chin PA-C* Z47.89 Encounter for other orthopedic aftercare * M25.562 Pain in left knee* Follow up:* 2 weeks for lt knee recheck with BMS Functional Status Description No Information Available Mental Status Description No Information Available Referrals Refer to Reason for Referral Status Appt Date Jimenez Chin, LORAINE PT LT KNEE OK TO [facility] 2ND SET AFTER SURGERY. PASSED TO PT DEPT. MARIA A Created [address] [facility] [address] [place] [id number] [phone] Flaco Martinez MD PT LT KNEE OK TO [facility] 1ST SET AFTER SURGERY. L S Created [address] [facility], [address] [place], [place] [address] [phone] Flaco Martinez MD [employer]UTCHES OK TO SUPPLY HERE. MARIA A Created [address] [facility], [address] [address] [phone] Flaco Martinez MD SURGERY LT KNEE DX ARTHROSCO PY WRITTEN AUTH PASSED TO SURGERY. MARIA A Created [address] [facility], [address] [address] [phone]
--- OUTSIDE RECORDS SUMMARY | 2021-11-02 08:34 | CCD | Continuity of Care Document ---
Author Author Edith YO MSPT Organization Unknown Address [address] [place] [address] Phone [phone] Care Team Providers Care Wirer Name Role Phone [employer] SAW AUTM [phone] Mahesh Monaco MD AUTM [phone] Faiza Gupta MD AUTM [phone] Mahesh Monaco MD AUTM [phone] Problems Active Problems Provider Date Patellar tendonitis [...] Testing NEGATIVE Procedures Date Code Description Status 09/21/2021 70258 Therapeutic Procedure, Each 15 M inutes Completed 09/21/2021 91417 Therapeutic Procedure, Each 15 M inutes Completed 08/29/2021 71897 Therapeutic Procedure, Each 15 M inutes Completed 08/29/2021 72815 Therapeutic Procedure, Each 15 M inutes Completed 08/24/2021 49685 Therapeutic Procedure, Each 15 M inutes Completed 08/24/2021 46745 Electrical Stimulati on Manual, Each 15 Min, Constant Attendance Completed 08/24/2021 37772 Hot Or Cold Packs Completed 08/24/2021 78608 Therapeutic Procedure, Each 15 M inutes Completed 08/22/2021 21198 Therapeutic Procedure, Each 15 M inutes Completed 08/22/2021 43920 Therapeutic Procedure, Each 15 M inutes Completed 08/22/2021 25360 Electrical Stimulati on Manual, Each 15 Min, Constant Attendance Completed 08/22/2021 14018 Hot Or Cold Packs Completed 08/17/2021 40312 Therapeutic Procedure, Each 15 M inutes Completed 08/17/2021 89496 Electrical Stimulati on Manual, Each 15 Min, Constant Attendance Completed 08/17/2021 62463 Therapeutic Procedure, Each 15 M inutes Completed 08/15/2021 29855 Therapeutic Procedure, Each 15 M inutes Completed 08/15/2021 38626 Therapeutic Procedure, Each 15 M inutes Completed 08/15/2021 85525 Electrical Stimulati on Manual, Each 15 Min, Constant Attendance Completed 08/15/2021 72572 Hot Or Cold Packs Completed 08/10/2021 39544 Hot Or Cold Packs Completed 08/10/2021 04541 Therapeutic Procedure, Each 15 M inutes Completed 08/10/2021 41549 Therapeutic Procedure, Each 15 M inutes Completed 08/10/2021 06586 Electrical Stimulati on Manual, Each 15 Min, Constant Attendance Completed 08/08/2021 92313 Therapeutic Procedure, Each 15 M inutes Completed 08/08/2021 59940 Therapeutic Procedure, Each 15 M inutes Completed 08/08/2021 27733 Electrical Stimulati on Manual, Each 15 Min, Constant Attendance Completed 08/08/2021 34529 Hot Or Cold Packs Completed 08/03/2021 01721 Therapeutic Procedure, Each 15 M inutes Completed 08/03/2021 63474 Therapeutic Procedure, Each 15 M inutes Completed 08/01/2021 77084 Therapeutic Procedure, Each 15 M inutes Completed 08/01/2021 89960 Hot Or Cold Packs Completed 08/01/2021 11082 Electrical Stimulati on Manual, Each 15 Min, Constant Attendance Completed 08/01/2021 49772 Therapeutic Procedure, Each 15 M inutes Completed 07/27/2021 98845 Therapeutic Procedure, Each 15 M inutes Completed 07/27/2021 52826 Therapeutic Procedure, Each 15 M inutes Completed 07/27/2021 55382 Electrical Stimulati on Manual, Each 15 Min, Constant Attendance Completed 07/27/2021 52899 Hot Or Cold Packs Completed 07/25/2021 40729 Hot Or Cold Packs Completed 07/25/2021 48229 Therapeutic Procedure, Each 15 M inutes Completed 07/25/2021 52236 Therapeutic Procedure, Each 15 M inutes Completed 07/25/2021 12561 Electrical Stimulati on Manual, Each 15 Min, Constant Attendance Completed 07/20/2021 18925 Therapeutic Procedure, Each 15 M inutes Completed 07/20/2021 15869 Therapeutic Procedure, Each 15 M inutes Completed 07/20/2021 54311 Electrical Stimulati on Manual, Each 15 Min, Constant Attendance Completed 07/20/2021 95256 Hot Or Cold Packs Completed 07/20/2021 68639 Re-Eval Of PT Establ ished Plan Of Care 20Mins Face To Face PT/Fam Completed 07/18/2021 05023 Therapeutic Procedure, Each 15 M inutes Completed 07/18/2021 19298 Therapeutic Procedure, Each 15 M inutes Completed 07/18/2021 22720 Electrical Stimulati on Manual, Each 15 Min, Constant Attendance Completed 07/13/2021 84342 Therapeutic Procedure, Each 15 M inutes Completed 07/13/2021 05226 Hot Or Cold Packs Completed 07/13/2021 19419 Electrical Stimulati on Manual, Each 15 Min, Constant Attendance Completed 07/13/2021 06382 Therapeutic Procedure, Each 15 M inutes Completed 07/11/2021 27282 Therapeutic Procedure, Each 15 M inutes Completed 07/11/2021 04771 Therapeutic Procedure, Each 15 M inutes Completed 07/11/2021 62906 Electrical Stimulati on Manual, Each 15 Min, Constant Attendance Completed 07/11/2021 48751 Hot Or Cold Packs Completed 07/06/2021 68224 Hot Or Cold Packs Completed 07/06/2021 60194 Therapeutic Procedure, Each 15 M inutes Completed 07/06/2021 44548 Therapeutic Procedure, Each 15 M inutes Completed 07/06/2021 72743 Electrical Stimulati on Manual, Each 15 Min, Constant Attendance Completed 07/04/2021 77398 Manual Therapy Each 15 Minutes C ompleted 07/04/2021 77692 Therapeutic Procedure, Each 15 M inutes Completed 07/04/2021 24181 Therapeutic Procedure, Each 15 M inutes Completed 07/04/2021 02371 Hot Or Cold Packs Completed 06/30/2021 66003 Hot Or Cold Packs Completed 06/30/2021 05175 Electrical Stimulati on Manual, Each 15 Min, Constant Attendance Completed 06/30/2021 98082 Therapeutic Procedure, Each 15 M inutes Completed 06/30/2021 15797 Therapeutic Procedure, Each 15 M inutes Completed 06/28/2021 80271 Therapeutic Procedure, Each 15 M inutes Completed 06/28/2021 14000 Therapeutic Procedure, Each 15 M inutes Completed 06/28/2021 61752 Electrical Stimulati on Manual, Each 15 Min, Constant Attendance Completed 06/28/2021 61209 Hot Or Cold Packs Completed 06/26/2021 09456 Physical Therapy Eval - Low Comp lexity Completed 06/22/2021 62571 Arthroscopy Knee W/M eniscectomy Inc Chondroplasty (Med Or Lateral Completed 04/10/2021 02474 Office/Outpatient Established Mo d MDM 30-39 Min Completed 04/04/2021 17741 Office/Outpatient Established Lo w MDM 20-29 Min [...] other orthopedic aftercare Office Visit 06/26/2021 3:[place]p [place] MD Z47.89 Encounter for other orthopedic aftercare Office Visit 04/10/2021 2:15p [place] MD M17.12 Unilateral primary osteoarthritis, left knee M94.262 Chondromalacia, left knee Office Visit 04/04/2021 3:45p FELECIA Bethae M17.32 Unilateral post-traumatic osteoarthritis, left knee M94.262 Chondromalacia, left knee Assessments Date Code Description Provider 09/21/2021 Z47.89 Encounter for other orthopedic a BAUDILIO Stratton 09/21/2021 M25.562 Pain in left knee Madonna izquierdo, MINDYT 09/07/2021 Z47.89 Encounter for other orthopedic a tony Chin PA-C 09/07/2021 M25.562 Pain in left knee Jimenez polo PA-C 08/29/2021 M25.562 Pain in left knee Madonna Van felecia, MSPT 08/29/2021 Z47.89 Encounter for other orthopedic a ftercare Madonna Yo, MSPT 08/24/2021 Z47.89 Encounter for other orthopedic a ftercare Jimenez Chin, LORAINE 08/24/2021 M25.562 Pain in left knee Jimenez [...] Encounter for other orthopedic a ftercare Madonna Lynsey Yo, MSPT 07/27/2021 Z47.89 Encounter for other orthopedic a ftercare Madonna Lynsey Yo, MSPT 07/25/2021 Z47.89 Encounter for other orthopedic a ftercare Júnior Damon P.T. 07/20/2021 Z47.89 Encounter for other orthopedic a ftercare Madonna Albino. Rehanpa, MSPT 07/18/2021 Z47.89 Encounter for other orthopedic a ftercare Madonna M. Rehanpa, MSPT 07/13/2021 Z47.89 Encounter for other orthopedic a ftercare Madonna Albino. Rehanpa, MSPT 07/11/2021 Z47.89 Encounter for other orthopedic a ftercare Madonna M. Vespa, MSPT 07/06/2021 Z47.89 Encounter for other orthopedic a ftercare Madonna M. Pancho, MSPT 07/04/2021 Z47.89 Encounter for other orthopedic a ftercare Madonna M. Pancho, [facility] 07/03/2021 Z47.89 Encounter for other orthopedic a ftercare Jimenez Chin PA-C 06/30/2021 Z47.89 Encounter for other orthopedic a ftercare Madonna Posada. Pancho, MSPT 06/28/2021 Z47.89 Encounter for other orthopedic a ftercare Madonna Yo, [facility] 06/26/2021 Z47.89 Encounter for other orthopedic a ftercare Madonna Posada. Pancho, [facility] 06/26/2021 Z47.89 Encounter for other orthopedic a [...] FELECIA Levy Plan of Treatment Future Appointment(s):* 10/05/2021 4:30 pm - MINDY AlvesT at Physical Therapy * 10/03/2021 4:30 pm - MINDY AlvesT at Physical Therapy * 09/28/2021 4:30 pm - MINDY AlvesT at Physical Therapy Functional Status Description No Information Available Mental Status Description No Information Available Referrals Refer to Dr Reason for Referral Status Appt Date January Cuevas MD PT LT KNEE WRITTEN AUTH PASSED TO PT DE PT. Created [facility] [place] [address] [phone] Jimenez Chin, PA-C PT LT KNEE OK TO [facility] 2ND SET AFTER SURGERY. PASSED TO PT DEPT. MARIA A Created [address] [place] [address] [phone] Flaco Martinez MD PT LT KNEE OK TO [facility] 1ST SET AFTER SURGERY. L S Created [facility] [address] [id number] [phone] Flaco Martinez MD CRUTCHES OK TO SUPPLY HERE. MARIA A Created [facility], [place] [address] [phone] Flaco Martinez MD SURGERY LT KNEE DX ARTHROSCO PY WRITTEN AUTH PASSED TO SURGERY. LS Created [facility], [address] [address] [phone]
--- OUTSIDE RECORDS SUMMARY | 2021-11-02 08:34 | CCD | Continuity of Care Document ---
Author Author Edith MAYER PA-C Organization Unknown Address [address] [address] Phone [phone] Care Team Providers Care Tire Spotter Name Role Phone [employer] SAW AUTM [phone] Mahesh Monaco MD AUTM [phone] Faiza Gupta MD AUTM Mahesh Monaco MD AUTM [phone] Problems Active Problems Provider Date Patellar tendonitis [...] NEGATIVE Procedures Date Code Description Status 08/29/2021 89716 Therapeutic Procedure, Each 15 M inutes Completed 08/29/2021 53742 Therapeutic Procedure, Each 15 M inutes Completed 08/24/2021 20532 Therapeutic Procedure, Each 15 M inutes Completed 08/24/2021 76395 Therapeutic Procedure, Each 15 M inutes Completed 08/24/2021 88385 Electrical Stimulati on Manual, Each 15 Min, Constant Attendance Completed 08/24/2021 26960 Hot Or Cold Packs Completed 08/22/2021 46736 Hot Or Cold Packs Completed 08/22/2021 45676 Electrical Stimulati on Manual, Each 15 Min, Constant Attendance Completed 08/22/2021 10973 Therapeutic Procedure, Each 15 M inutes Completed 08/22/2021 65494 Therapeutic Procedure, Each 15 M inutes Completed 08/17/2021 58956 Therapeutic Procedure, Each 15 M inutes Completed 08/17/2021 06977 Therapeutic Procedure, Each 15 M inutes Completed 08/17/2021 03489 Electrical Stimulati on Manual, Each 15 Min, Constant Attendance Completed 08/15/2021 74079 Therapeutic Procedure, Each 15 M inutes Completed 08/15/2021 58984 Therapeutic Procedure, Each 15 M inutes Completed 08/15/2021 70480 Electrical Stimulati on Manual, Each 15 Min, Constant Attendance Completed 08/15/2021 11249 Hot Or Cold Packs Completed 08/10/2021 31462 Therapeutic Procedure, Each 15 M inutes Completed 08/10/2021 78336 Hot Or Cold Packs Completed 08/10/2021 39128 Electrical Stimulati on Manual, Each 15 Min, Constant Attendance Completed 08/10/2021 15612 Therapeutic Procedure, Each 15 M inutes Completed 08/08/2021 91460 Therapeutic Procedure, Each 15 M inutes Completed 08/08/2021 65033 Therapeutic Procedure, Each 15 M inutes Completed 08/08/2021 27840 Electrical Stimulati on Manual, Each 15 Min, Constant Attendance Completed 08/08/2021 77454 Hot Or Cold Packs Completed 08/03/2021 45458 Therapeutic Procedure, Each 15 M inutes Completed 08/03/2021 85022 Therapeutic Procedure, Each 15 M inutes Completed 08/01/2021 18814 Therapeutic Procedure, Each 15 M inutes Completed 08/01/2021 74802 Therapeutic Procedure, Each 15 M inutes Completed 08/01/2021 50714 Electrical Stimulati on Manual, Each 15 Min, Constant Attendance Completed 08/01/2021 43983 Hot Or Cold Packs Completed 07/27/2021 47198 Therapeutic Procedure, Each 15 M inutes Completed 07/27/2021 97236 Therapeutic Procedure, Each 15 M inutes Completed 07/27/2021 92449 Electrical Stimulati on Manual, Each 15 Min, Constant Attendance Completed 07/27/2021 89004 Hot Or Cold Packs Completed 07/25/2021 23269 Electrical Stimulati on Manual, Each 15 Min, Constant Attendance Completed 07/25/2021 25417 Hot Or Cold Packs Completed 07/25/2021 14467 Therapeutic Procedure, Each 15 M inutes Completed 07/25/2021 52354 Therapeutic Procedure, Each 15 M inutes Completed 07/20/2021 08148 Therapeutic Procedure, Each 15 M inutes Completed 07/20/2021 77736 Therapeutic Procedure, Each 15 M inutes Completed 07/20/2021 97316 Electrical Stimulati on Manual, Each 15 Min, Constant Attendance Completed 07/20/2021 56250 Hot Or Cold Packs Completed 07/20/2021 51028 Re-Eval Of PT Establ ished Plan Of Care 20Mins Face To Face PT/Fam Completed 07/18/2021 83948 Therapeutic Procedure, Each 15 M inutes Completed 07/18/2021 03868 Therapeutic Procedure, Each 15 M inutes Completed 07/18/2021 79809 Electrical Stimulati on Manual, Each 15 Min, Constant Attendance Completed 07/13/2021 24312 Therapeutic Procedure, Each 15 M inutes Completed 07/13/2021 94684 Hot Or Cold Packs Completed 07/13/2021 36676 Electrical Stimulati on Manual, Each 15 Min, Constant Attendance Completed 07/13/2021 99748 Therapeutic Procedure, Each 15 M inutes Completed 07/11/2021 76949 Therapeutic Procedure, Each 15 M inutes Completed 07/11/2021 69625 Therapeutic Procedure, Each 15 M inutes Completed 07/11/2021 35919 Electrical Stimulati on Manual, Each 15 Min, Constant Attendance Completed 07/11/2021 52771 Hot Or Cold Packs Completed 07/06/2021 16837 Hot Or Cold Packs Completed 07/06/2021 19263 Therapeutic Procedure, Each 15 M inutes Completed 07/06/2021 54726 Therapeutic Procedure, Each 15 M inutes Completed 07/06/2021 99698 Electrical Stimulati on Manual, Each 15 Min, Constant Attendance Completed 07/04/2021 03671 Manual Therapy Each 15 Minutes C ompleted 07/04/2021 19713 Therapeutic Procedure, Each 15 M inutes Completed 07/04/2021 89876 Therapeutic Procedure, Each 15 M inutes Completed 07/04/2021 40200 Hot Or Cold Packs Completed 06/30/2021 02527 Hot Or Cold Packs Completed 06/30/2021 26148 Electrical Stimulati on Manual, Each 15 Min, Constant Attendance Completed 06/30/2021 00662 Therapeutic Procedure, Each 15 M inutes Completed 06/30/2021 27583 Therapeutic Procedure, Each 15 M inutes Completed 06/28/2021 37334 Therapeutic Procedure, Each 15 M inutes Completed 06/28/2021 93188 Therapeutic Procedure, Each 15 M inutes Completed 06/28/2021 92550 Electrical Stimulati on Manual, Each 15 Min, Constant Attendance Completed 06/28/2021 33244 Hot Or Cold Packs Completed 06/26/2021 03593 Physical Therapy Eval - Low Comp lexity Completed 06/22/2021 37601 Arthroscopy Knee W/M eniscectomy Inc Chondroplasty (Med Or Lateral Completed 04/10/2021 49462 Office/Outpatient Established Mo d MDM 30-39 Min Completed 04/04/2021 03107 Office/Outpatient Established Lo w MDM 20-29 Min Completed 03/24/2021 18611 MRI Lower Extremity Any Joint Co mpleted [...] Chondromalacia, left knee Office Visit 04/04/2021 3:45p RevaFELECIA Garrett M17.32 Unilateral post-traumatic osteoarthritis, left knee M94.262 Chondromalacia, left knee Assessments Date Code Description Provider 09/07/2021 Z47.89 Encounter for other orthopedic a ftshala Mayer PA-C 09/07/2021 M25.562 Pain in left knee Jimenez polo PA-C 08/29/2021 Z47.89 Encounter for other orthopedic a [facility], [facility] 08/29/2021 M25.562 Pain in left knee Madonna izquierdo, [facility] 08/24/2021 Z47.89 Encounter for other orthopedic a [...] for other orthopedic a ftercare Madonna Vanfelecia, [facility] 06/28/2021 Z47.89 Encounter for other orthopedic a ftercare Madonna Vanfelecia, [facility] 06/26/2021 Z47.89 Encounter for other orthopedic a ftercare Madonna Vanfelecia, [facility] 06/26/2021 Z47.89 Encounter for other [...] PASSED TO PT DE PT. LS Created [facility] [place] [address] [phone] Jimenez Mayer PA-C PT LT KNEE OK TO [facility] 2ND SET AFTER SURGERY. PASSED TO PT DEPT. MARIA A Created [address] [place] [address] [phone] Flaco Martinez MD PT LT KNEE OK TO [facility] 1ST SET AFTER SURGERY. L S Created [address] [place] [address] [phone] Flaco Martinez MD CRUTCHES OK TO SUPPLY HERE. MARIA A Created [facility] [place] [address] [phone] Flaco Martinez MD SURGERY LT KNEE DX ARTHROSCO PY WRITTEN AUTH PASSED TO SURGERY. MARIA A Created [facility], [address] [phone] [phone]
--- OUTSIDE RECORDS SUMMARY | 2021-11-02 08:34 | CCD | Continuity of Care Document ---
Author Author Edith YO MSPT Organization Unknown Address [address] [place] [address] Phone [phone] Care Team Providers Care Telecommunication Systems Designer Name Role Phone [employer] SAW AUTM [phone] Mahesh Moanco MD AUTM [phone] Faiza Gupta MD AUTM Mahesh Monaco MD AUTM [phone] Problems Active Problems Provider Date Patellar tendonitis [...] NEGATIVE Procedures Date Code Description Status 10/03/2021 77384 Therapeutic Procedure, Each 15 M inutes Completed 10/03/2021 08902 Therapeutic Procedure, Each 15 M inutes Completed 09/26/2021 55675 Therapeutic Procedure, Each 15 M inutes Completed 09/26/2021 88182 Therapeutic Procedure, Each 15 M inutes Completed 09/21/2021 48777 Therapeutic Procedure, Each 15 M inutes Completed 09/21/2021 17658 Therapeutic Procedure, Each 15 M inutes Completed 08/29/2021 71378 Therapeutic Procedure, Each 15 M inutes Completed 08/29/2021 29149 Therapeutic Procedure, Each 15 M inutes Completed 08/24/2021 27545 Electrical Stimulati on Manual, Each 15 Min, Constant Attendance Completed 08/24/2021 19143 Hot Or Cold Packs Completed 08/24/2021 71922 Therapeutic Procedure, Each 15 M inutes Completed 08/24/2021 98235 Therapeutic Procedure, Each 15 M inutes Completed 08/22/2021 59716 Therapeutic Procedure, Each 15 M inutes Completed 08/22/2021 22474 Therapeutic Procedure, Each 15 M inutes Completed 08/22/2021 93860 Electrical Stimulati on Manual, Each 15 Min, Constant Attendance Completed 08/22/2021 23138 Hot Or Cold Packs Completed 08/17/2021 18955 Therapeutic Procedure, Each 15 M inutes Completed 08/17/2021 85108 Therapeutic Procedure, Each 15 M inutes Completed 08/17/2021 80133 Electrical Stimulati on Manual, Each 15 Min, Constant Attendance Completed 08/15/2021 15831 Therapeutic Procedure, Each 15 M inutes Completed 08/15/2021 84471 Hot Or Cold Packs Completed 08/15/2021 79302 Therapeutic Procedure, Each 15 M inutes Completed 08/15/2021 37359 Electrical Stimulati on Manual, Each 15 Min, Constant Attendance Completed 08/10/2021 62413 Therapeutic Procedure, Each 15 M inutes Completed 08/10/2021 68580 Therapeutic Procedure, Each 15 M inutes Completed 08/10/2021 23695 Electrical Stimulati on Manual, Each 15 Min, Constant Attendance Completed 08/10/2021 79850 Hot Or Cold Packs Completed 08/08/2021 12657 Hot Or Cold Packs Completed 08/08/2021 02731 Electrical Stimulati on Manual, Each 15 Min, Constant Attendance Completed 08/08/2021 65836 Therapeutic Procedure, Each 15 M inutes Completed 08/08/2021 14431 Therapeutic Procedure, Each 15 M inutes Completed 08/03/2021 62926 Therapeutic Procedure, Each 15 M inutes Completed 08/03/2021 10515 Therapeutic Procedure, Each 15 M inutes Completed 08/01/2021 68277 Therapeutic Procedure, Each 15 M inutes Completed 08/01/2021 94974 Therapeutic Procedure, Each 15 M inutes Completed 08/01/2021 52618 Electrical Stimulati on Manual, Each 15 Min, Constant Attendance Completed 08/01/2021 27014 Hot Or Cold Packs Completed 07/27/2021 03597 Hot Or Cold Packs Completed 07/27/2021 54870 Electrical Stimulati on Manual, Each 15 Min, Constant Attendance Completed 07/27/2021 68977 Therapeutic Procedure, Each 15 M inutes Completed 07/27/2021 74022 Therapeutic Procedure, Each 15 M inutes Completed 07/25/2021 86689 Therapeutic Procedure, Each 15 M inutes Completed 07/25/2021 21120 Therapeutic Procedure, Each 15 M inutes Completed 07/25/2021 63310 Electrical Stimulati on Manual, Each 15 Min, Constant Attendance Completed 07/25/2021 47222 Hot Or Cold Packs Completed 07/20/2021 82615 Hot Or Cold Packs Completed 07/20/2021 80245 Electrical Stimulati on Manual, Each 15 Min, Constant Attendance Completed 07/20/2021 21832 Therapeutic Procedure, Each 15 M inutes Completed 07/20/2021 22100 Therapeutic Procedure, Each 15 M inutes Completed 07/20/2021 08895 Re-Eval Of PT Establ ished Plan Of Care 20Mins Face To Face PT/Fam Completed 07/18/2021 20075 Therapeutic Procedure, Each 15 M inutes Completed 07/18/2021 31012 Therapeutic Procedure, Each 15 M inutes Completed 07/18/2021 14062 Electrical Stimulati on Manual, Each 15 Min, Constant Attendance Completed 07/13/2021 65211 Therapeutic Procedure, Each 15 M inutes Completed 07/13/2021 62391 Therapeutic Procedure, Each 15 M inutes Completed 07/13/2021 43936 Electrical Stimulati on Manual, Each 15 Min, Constant Attendance Completed 07/13/2021 83144 Hot Or Cold Packs Completed 07/11/2021 05350 Hot Or Cold Packs Completed 07/11/2021 41599 Electrical Stimulati on Manual, Each 15 Min, Constant Attendance Completed 07/11/2021 63281 Therapeutic Procedure, Each 15 M inutes Completed 07/11/2021 62193 Therapeutic Procedure, Each 15 M inutes Completed 07/06/2021 05108 Therapeutic Procedure, Each 15 M inutes Completed 07/06/2021 57275 Therapeutic Procedure, Each 15 M inutes Completed 07/06/2021 18184 Electrical Stimulati on Manual, Each 15 Min, Constant Attendance Completed 07/06/2021 23920 Hot Or Cold Packs Completed 07/04/2021 06362 Manual Therapy Each 15 Minutes C ompleted 07/04/2021 37720 Therapeutic Procedure, Each 15 M inutes Completed 07/04/2021 03676 Therapeutic Procedure, Each 15 M inutes Completed 07/04/2021 02286 Hot Or Cold Packs Completed 06/30/2021 85219 Therapeutic Procedure, Each 15 M inutes Completed 06/30/2021 03215 Hot Or Cold Packs Completed 06/30/2021 69543 Electrical Stimulati on Manual, Each 15 Min, Constant Attendance Completed 06/30/2021 83230 Therapeutic Procedure, Each 15 M inutes Completed 06/28/2021 14129 Therapeutic Procedure, Each 15 M inutes Completed 06/28/2021 16255 Therapeutic Procedure, Each 15 M inutes Completed 06/28/2021 46517 Electrical Stimulati on Manual, Each 15 Min, Constant Attendance Completed 06/28/2021 72860 Hot Or Cold Packs Completed 06/26/2021 32173 Physical Therapy Eval - Low Comp lexity Completed 06/22/2021 21425 Arthroscopy Knee W/M eniscectomy Inc Chondroplasty (Med Or Lateral Completed 04/10/2021 28640 Office/Outpatient Established Mo d MDM 30-39 Min Completed 04/04/2021 81027 Office/Outpatient Established Lo w MDM 20-29 Min [...] other orthopedic a ftercare [facility] 07/11/2021 Z47.89 Encounter for other orthopedic a ftercare Madonna M. Vespa, [facility] 07/06/2021 Z47.89 Encounter for other orthopedic a ftercare Madonna M. Vespa, [facility] 07/04/2021 Z47.89 Encounter for other orthopedic a ftercare Madonna M. Vespa, [facility] 07/03/2021 Z47.89 Encounter for other orthopedic a ftercare Jimenez Chin PA-C 06/30/2021 Z47.89 Encounter for other orthopedic a ftercare Madonna M. Rehanpa, [facility] 06/28/2021 Z47.89 Encounter for other orthopedic a ftercare Madonna M. Vespa, [facility] 06/26/2021 Z47.89 Encounter for other orthopedic a ftercare Madonna M. Rehanpa, [facility] 06/26/2021 Z47.89 Encounter for other orthopedic [...] PASSED TO PT DE PT. LS Created [facility], [address] [id number] [phone] Jimenez Chin, PA-C PT LT KNEE OK TO [facility] 2ND SET AFTER SURGERY. PASSED TO PT DEPT. LS Created [facility] [place] [address] [phone] Flaco Martinez MD PT LT KNEE OK TO [facility] 1ST SET AFTER SURGERY. L S Created [facility], [place] [address] [phone] Flaco Martinez MD CRUTCHES OK TO SUPPLY HERE. LS Created [facility] [address] [address] [phone] Falco Martinez MD SURGERY LT KNEE DX ARTHROSCO PY WRITTEN AUTH PASSED TO SURGERY. LS Created [address] [facility], [address] [place] [address] [phone]
[2021-11-02] MEDS ORDERED: ALBU8.5H INH (08:35)
--- OUTSIDE RECORDS SUMMARY | 2021-11-02 08:35 | CCD | Continuity of Care Document ---
Author Author Edith DELEON MSPT Organization Unknown Address [address] [place] [phone] Phone [phone] Care Team Providers Care Inletter Name Role Phone [employer] SAW AUTM [phone] Mahesh Monaco MD AUTM [phone] Faiza Gupta MD AUTM Mahesh Monaco MD AUTM [phone] Problems Active Problems Provider Date Patellar tendonitis [...] Testing NEGATIVE Procedures Date Code Description Status 08/15/2021 58322 Therapeutic Procedure, Each 15 M inutes Completed 08/15/2021 49978 Electrical Stimulati on Manual, Each 15 Min, Constant Attendance Completed 08/15/2021 21257 Hot Or Cold Packs Completed 08/15/2021 26438 Therapeutic Procedure, Each 15 M inutes Completed 08/10/2021 20809 Therapeutic Procedure, Each 15 M inutes Completed 08/10/2021 14426 Therapeutic Procedure, Each 15 M inutes Completed 08/10/2021 38845 Electrical Stimulati on Manual, Each 15 Min, Constant Attendance Completed 08/10/2021 27615 Hot Or Cold Packs Completed 08/08/2021 27658 Therapeutic Procedure, Each 15 M inutes Completed 08/08/2021 68803 Therapeutic Procedure, Each 15 M inutes Completed 08/08/2021 21159 Electrical Stimulati on Manual, Each 15 Min, Constant Attendance Completed 08/08/2021 07386 Hot Or Cold Packs Completed 08/03/2021 75098 Therapeutic Procedure, Each 15 M inutes Completed 08/03/2021 61736 Therapeutic Procedure, Each 15 M inutes Completed 08/01/2021 94628 Electrical Stimulati on Manual, Each 15 Min, Constant Attendance Completed 08/01/2021 55233 Hot Or Cold Packs Completed 08/01/2021 24023 Therapeutic Procedure, Each 15 M inutes Completed 08/01/2021 61928 Therapeutic Procedure, Each 15 M inutes Completed 07/27/2021 45251 Therapeutic Procedure, Each 15 M inutes Completed 07/27/2021 48094 Therapeutic Procedure, Each 15 M inutes Completed 07/27/2021 96413 Electrical Stimulati on Manual, Each 15 Min, Constant Attendance Completed 07/27/2021 06493 Hot Or Cold Packs Completed 07/25/2021 62325 Electrical Stimulati on Manual, Each 15 Min, Constant Attendance Completed 07/25/2021 13072 Hot Or Cold Packs Completed 07/25/2021 02432 Therapeutic Procedure, Each 15 M inutes Completed 07/25/2021 20179 Therapeutic Procedure, Each 15 M inutes Completed 07/20/2021 42613 Re-Eval Of PT Establ ished Plan Of Care 20Mins Face To Face PT/Fam Completed 07/20/2021 18311 Therapeutic Procedure, Each 15 M inutes Completed 07/20/2021 72940 Therapeutic Procedure, Each 15 M inutes Completed 07/20/2021 22246 Electrical Stimulati on Manual, Each 15 Min, Constant Attendance Completed 07/20/2021 20278 Hot Or Cold Packs Completed 07/18/2021 83587 Therapeutic Procedure, Each 15 M inutes Completed 07/18/2021 05478 Electrical Stimulati on Manual, Each 15 Min, Constant Attendance Completed 07/18/2021 68083 Therapeutic Procedure, Each 15 M inutes Completed 07/13/2021 08894 Therapeutic Procedure, Each 15 M inutes Completed 07/13/2021 80707 Therapeutic Procedure, Each 15 M inutes Completed 07/13/2021 61624 Electrical Stimulati on Manual, Each 15 Min, Constant Attendance Completed 07/13/2021 34676 Hot Or Cold Packs Completed 07/11/2021 93942 Therapeutic Procedure, Each 15 M inutes Completed 07/11/2021 31269 Therapeutic Procedure, Each 15 M inutes Completed 07/11/2021 23001 Electrical Stimulati on Manual, Each 15 Min, Constant Attendance Completed 07/11/2021 51488 Hot Or Cold Packs Completed 07/06/2021 42424 Therapeutic Procedure, Each 15 M inutes Completed 07/06/2021 42445 Therapeutic Procedure, Each 15 M inutes Completed 07/06/2021 51100 Electrical Stimulati on Manual, Each 15 Min, Constant Attendance Completed 07/06/2021 17392 Hot Or Cold Packs Completed 07/04/2021 89837 Therapeutic Procedure, Each 15 M inutes Completed 07/04/2021 11027 Hot Or Cold Packs Completed 07/04/2021 09172 Therapeutic Procedure, Each 15 M inutes Completed 07/04/2021 26008 Manual Therapy Each 15 Minutes C ompleted 06/30/2021 18233 Therapeutic Procedure, Each 15 M inutes Completed 06/30/2021 12180 Therapeutic Procedure, Each 15 M inutes Completed 06/30/2021 81743 Electrical Stimulati on Manual, Each 15 Min, Constant Attendance Completed 06/30/2021 63408 Hot Or Cold Packs Completed 06/28/2021 21949 Therapeutic Procedure, Each 15 M inutes Completed 06/28/2021 29057 Therapeutic Procedure, Each 15 M inutes Completed 06/28/2021 21017 Electrical Stimulati on Manual, Each 15 Min, Constant Attendance Completed 06/28/2021 47058 Hot Or Cold Packs Completed 06/26/2021 46386 Physical Therapy Eval - Low Comp lexity Completed 06/22/2021 97211 Arthroscopy Knee W/M eniscectomy Inc Chondroplasty (Med Or Lateral Completed 04/10/2021 84098 Office/Outpatient Established Mo d MDM 30-39 Min Completed 04/04/2021 94248 Office/Outpatient Established Lo w MDM 20-29 Min Completed 03/24/2021 96320 MRI Lower Extremity Any Joint Co mpleted Medical Devices Description No Information Available Encounters Type Date Location Provider Dx Diagnosis Office Visit 08/01/2021 5:15p Alfred Chin PA-C Z4 7.89 Encounter for other orthopedic aftercare Office Visit 07/03/2021 4:30p Alfred Chin PA-C Z4 7.89 Encounter for other orthopedic aftercare Office Visit 06/26/2021 3:15p Alfred Martinez MD Z47.89 Encounter for other orthopedic aftercare Office Visit 04/10/2021 2:15p Alfred Martinez MD M17.12 Unilateral primary osteoarthritis, left knee M94.262 Chondromalacia, left knee Office Visit 04/04/2021 3:45p [place] ASHLEY Boo M17.32 Unilateral post-traumatic osteoarthritis, left knee M94.262 Chondromalacia, left knee Assessments Date Code Description Provider 08/15/2021 Z47.89 Encounter for other orthopedic a ftercare Madonna M. Rehanpa, MSPT 08/10/2021 Z47.89 Encounter for other orthopedic a ftercare Madonna M. Vespa, MSPT 08/08/2021 Z47.89 Encounter for other orthopedic a ftercare Madonna M. Vespa, MSPT 08/03/2021 Z47.89 Encounter for other orthopedic a ftercare Madonna M. Vespa, MSPT 08/01/2021 Z47.89 Encounter for other orthopedic a ftercare Jimenez Chin PA-C 08/01/2021 Z47.89 Encounter for other orthopedic a ftercare Madonna M. Rehanpa, MSPT 07/27/2021 Z47.89 Encounter for other orthopedic [...] other orthopedic a ftercare Madonna Deleon, MSPT 06/26/2021 Z47.89 Encounter for other orthopedic a ftercare Madonna Deleon, MSPT 06/26/2021 Z47.89 Encounter for other orthopedic [...] knee MRI Plan of Treatment Future Appointment(s):* 08/24/2021 4:30 pm - [facility] at [facility] * 08/22/2021 4:30 pm - BAUDILIO Alves at [facility] Therapy * 08/24/2021 5:15 pm - Jimenez Chin PA-C at [place] Functional Status Description No Information Available Mental Status Description No Information Available Referrals Refer to Dr Reason for Referral Status Appt Date Jimenez Chin PA-C PT LT KNEE OK TO [facility] 2ND SET AFTER SURGERY. PASSED TO PT DEPT. LS Created [facility] [address] [place] [address] [phone] Flaco Martinez MD PT LT KNEE OK TO [facility] 1ST SET AFTER SURGERY. L S Created [facility], [address] [address] [phone] Flaco Martinez MD CRUTCHES OK TO SUPPLY HERE. LS Created [facility], [address] [address] [phone] Flaco Martinez MD SURGERY LT KNEE DX ARTHROSCO PY WRITTEN AUTH PASSED TO SURGERY. LS Created [facility], [address] [address] [phone] January Cuevas MD MRI LT KNEE WRITTEN AUTH AND ONECALL TO [facility]. MARIA A 03/16/21 PER ONECALL WE CAN [facility] HERE VS VENDOR. PASSED TO XRAY. MARIA A Created [address] [place] [address], [address] [address] [phone]
--- OUTSIDE RECORDS SUMMARY | 2021-11-02 08:35 | CCD ---
Continuity of Care Document (CCD) Created on: 08/24/2021 Edith Cooper External Reference #: [id number] : [id number] Sex: Female Author Author Edith YO MSPT Organization Unknown Address [address] [place] [address] Phone [phone] Care Team Providers Care Purchasing Director Name Role Phone Holly Brotehrs SAW AUTM [phone] Mahesh Monaco MD AUTM [phone] Faiza Gupta MD AUTM [phone] Mahesh Monaco MD AUTM [phone] Problems Active Problems Provider Date Patellar tendonitis [...] Testing NEGATIVE Procedures Date Code Description Status 08/22/2021 98727 Therapeutic Procedure, Each 15 M inutes Completed 08/22/2021 14287 Therapeutic Procedure, Each 15 M inutes Completed 08/22/2021 68087 Hot Or Cold Packs Completed 08/22/2021 69938 Electrical Stimulati on Manual, Each 15 Min, Constant Attendance Completed 08/17/2021 45916 Therapeutic Procedure, Each 15 M inutes Completed 08/17/2021 60474 Electrical Stimulati on Manual, Each 15 Min, Constant Attendance Completed 08/17/2021 83506 Therapeutic Procedure, Each 15 M inutes Completed 08/15/2021 90592 Therapeutic Procedure, Each 15 M inutes Completed 08/15/2021 29241 Therapeutic Procedure, Each 15 M inutes Completed 08/15/2021 69135 Electrical Stimulati on Manual, Each 15 Min, Constant Attendance Completed 08/15/2021 75683 Hot Or Cold Packs Completed 08/10/2021 39373 Therapeutic Procedure, Each 15 M inutes Completed 08/10/2021 29195 Therapeutic Procedure, Each 15 M inutes Completed 08/10/2021 99514 Electrical Stimulati on Manual, Each 15 Min, Constant Attendance Completed 08/10/2021 83968 Hot Or Cold Packs Completed 08/08/2021 43266 Therapeutic Procedure, Each 15 M inutes Completed 08/08/2021 79772 Therapeutic Procedure, Each 15 M inutes Completed 08/08/2021 94312 Electrical Stimulati on Manual, Each 15 Min, Constant Attendance Completed 08/08/2021 24069 Hot Or Cold Packs Completed 08/03/2021 77902 Therapeutic Procedure, Each 15 M inutes Completed 08/03/2021 53794 Therapeutic Procedure, Each 15 M inutes Completed 08/01/2021 95958 Therapeutic Procedure, Each 15 M inutes Completed 08/01/2021 06254 Therapeutic Procedure, Each 15 M inutes Completed 08/01/2021 48943 Electrical Stimulati on Manual, Each 15 Min, Constant Attendance Completed 08/01/2021 38899 Hot Or Cold Packs Completed 07/27/2021 86755 Therapeutic Procedure, Each 15 M inutes Completed 07/27/2021 37540 Therapeutic Procedure, Each 15 M inutes Completed 07/27/2021 66575 Electrical Stimulati on Manual, Each 15 Min, Constant Attendance Completed 07/27/2021 20192 Hot Or Cold Packs Completed 07/25/2021 40022 Therapeutic Procedure, Each 15 M inutes Completed 07/25/2021 22605 Therapeutic Procedure, Each 15 M inutes Completed 07/25/2021 03316 Electrical Stimulati on Manual, Each 15 Min, Constant Attendance Completed 07/25/2021 44293 Hot Or Cold Packs Completed 07/20/2021 37082 Hot Or Cold Packs Completed 07/20/2021 88183 Electrical Stimulati on Manual, Each 15 Min, Constant Attendance Completed 07/20/2021 68186 Therapeutic Procedure, Each 15 M inutes Completed 07/20/2021 29978 Re-Eval Of PT Establ ished Plan Of Care 20Mins Face To Face PT/Fam Completed 07/20/2021 63328 Therapeutic Procedure, Each 15 M inutes Completed 07/18/2021 44333 Therapeutic Procedure, Each 15 M inutes Completed 07/18/2021 75673 Therapeutic Procedure, Each 15 M inutes Completed 07/18/2021 88505 Electrical Stimulati on Manual, Each 15 Min, Constant Attendance Completed 07/13/2021 10202 Therapeutic Procedure, Each 15 M inutes Completed 07/13/2021 66637 Therapeutic Procedure, Each 15 M inutes Completed 07/13/2021 50810 Electrical Stimulati on Manual, Each 15 Min, Constant Attendance Completed 07/13/2021 98251 Hot Or Cold Packs Completed 07/11/2021 01040 Therapeutic Procedure, Each 15 M inutes Completed 07/11/2021 81298 Hot Or Cold Packs Completed 07/11/2021 64312 Electrical Stimulati on Manual, Each 15 Min, Constant Attendance Completed 07/11/2021 55676 Therapeutic Procedure, Each 15 M inutes Completed 07/06/2021 43940 Therapeutic Procedure, Each 15 M inutes Completed 07/06/2021 93558 Therapeutic Procedure, Each 15 M inutes Completed 07/06/2021 63379 Electrical Stimulati on Manual, Each 15 Min, Constant Attendance Completed 07/06/2021 48304 Hot Or Cold Packs Completed 07/04/2021 56247 Manual Therapy Each 15 Minutes C ompleted 07/04/2021 86908 Hot Or Cold Packs Completed 07/04/2021 67035 Therapeutic Procedure, Each 15 M inutes Completed 07/04/2021 82052 Therapeutic Procedure, Each 15 M inutes Completed 06/30/2021 42636 Therapeutic Procedure, Each 15 M inutes Completed 06/30/2021 09589 Therapeutic Procedure, Each 15 M inutes Completed 06/30/2021 88002 Electrical Stimulati on Manual, Each 15 Min, Constant Attendance Completed 06/30/2021 53919 Hot Or Cold Packs Completed 06/28/2021 11234 Therapeutic Procedure, Each 15 M inutes Completed 06/28/2021 29982 Therapeutic Procedure, Each 15 M inutes Completed 06/28/2021 75733 Electrical Stimulati on Manual, Each 15 Min, Constant Attendance Completed 06/28/2021 58038 Hot Or Cold Packs Completed 06/26/2021 32003 Physical Therapy Eval - Low Comp lexity Completed 06/22/2021 30692 Arthroscopy Knee W/M eniscectomy Inc Chondroplasty (Med Or Lateral Completed 04/10/2021 84083 Office/Outpatient Established Mo d MDM 30-39 Min Completed 04/04/2021 92638 Office/Outpatient Established Lo w MDM 20-29 Min Completed 03/24/2021 89174 MRI Lower Extremity Any Joint Co mpleted Medical Devices Description No Information Available Encounters Type Date Location Provider Dx Diagnosis Office Visit 08/01/2021 5[facility]p [facility] Chin, PA-C Z4 7.89 Encounter for other orthopedic aftercare Office Visit 07/03/2021 4:30p [facility] Jim[facility] Chin PA-C Z4 7.89 Encounter for other orthopedic aftercare Office Visit 06/26/2021 [facility] MD Z47.89 Encounter for other orthopedic aftercare Office Visit 04/10/2021 2:15p [facility] Flaco Martinez MD M17.12 Unilateral primary osteoarthritis, left knee M94.262 Chondromalacia, left knee Office Visit 04/04/2021 3:45p [facility] FELECIA Boo M17.32 Unilateral post-traumatic osteoarthritis, left knee M94.262 Chondromalacia, left knee Assessments Date Code Description Provider 08/22/2021 Z47.89 Encounter for other orthopedic a ftercare [facility] 08/17/2021 Z47.89 Encounter for other orthopedic a ftercare Júnior Damon P.T. 08/15/2021 Z47.89 Encounter for other orthopedic a ftercare Madonna M. Vespa, MSPT 08/10/2021 Z47.89 Encounter for other orthopedic a ftercare Madonna [facility] Vespa, [facility] 08/08/2021 Z47.89 Encounter for other orthopedic a ftercare Madonna M. Vespa, MSPT 08/03/2021 Z47.89 Encounter for other orthopedic a ftercare Madonna [facility]. Vespa, [facility] 08/01/2021 Z47.89 Encounter for other orthopedic a [...] orthopedic a ftercare Madonna M. Rehanpa, MSPT 07/11/2021 Z47.89 Encounter for other orthopedic a ftercare Madonna M. Rehanpa, MSPT 07/06/2021 Z47.89 Encounter for other orthopedic a ftercare Madonna M. Rehanpa, MSPT 07/04/2021 Z47.89 Encounter for other orthopedic a ftercare Madonna M. Pancho, MSPT 07/03/2021 Z47.89 Encounter for other orthopedic a ftercare Jimenez Chin PA-C 06/30/2021 Z47.89 Encounter for other orthopedic a ftercare Madonna Posada. Pancho, [facility] 06/28/2021 Z47.89 Encounter for other orthopedic a ftercare Madonna Posada. Pancho, [facility] 06/26/2021 Z47.89 Encounter for other orthopedic a ftercare Madonna Posada. Pancho, [facility] 06/26/2021 Z47.89 Encounter for other [...] knee MRI Plan of Treatment Future Appointment(s):* 08/29/2021 4:30 pm - MINDY AlvesT at Physical Therapy Functional Status Description No Information Available Mental Status Description No Information Available Referrals Refer to Dr Reason for Referral Status Appt Date Jimenez Chin, PA-C PT LT KNEE OK TO [facility] 2ND SET AFTER SURGERY. PASSED TO PT DEPT. LS Created [address] [place] [address] [phone] Flaco Martinez MD PT LT KNEE OK TO [facility] 1ST SET AFTER SURGERY. L S Created [address] [place] [phone] Flaco Martinez MD CRUTCHES OK TO SUPPLY HERE. LS Created [address] [place] [address] [phone] Flaco Martinez MD SURGERY LT KNEE DX ARTHROSCO PY WRITTEN AUTH PASSED TO SURGERY. LS Created [address] [place] [phone] January Cuevas MD MRI LT KNEE WRITTEN AUTH AND ONECALL TO [facility]. 03/16/21 PER ONECALL WE CAN [facility] HERE VS VENDOR. PASSED TO XRAY. LS Created [address] [place] [phone]
--- OUTSIDE RECORDS SUMMARY | 2021-11-02 08:35 | CCD | Continuity of Care Document ---
Author Author Edith DAMON P.T. Organization Unknown Address [address] [place] [address] [address] [place] [address] Phone [phone] Care Team Providers Care Circular Distributor Name Role Phone [employer] SAW AUTM [phone] Mahesh Monaco MD AUTM [phone] Faiza Gupta MD AUTM Mahesh Monaco MD AUTM [phone] Problems Active Problems Provider Date Patellar tendonitis [...] left knee #2 iid/sujit,left knee#3 Iid/TF 01/09/21 Zcah Cuevas MD 12/15/2020 Fluticasone Propionate 50mcg/Act Suspension [...] NEGATIVE Procedures Date Code Description Status 08/22/2021 04118 Therapeutic Procedure, Each 15 M inutes Completed 08/22/2021 64098 Therapeutic Procedure, Each 15 M inutes Completed 08/22/2021 90927 Hot Or Cold Packs Completed 08/22/2021 76347 Electrical Stimulati on Manual, Each 15 Min, Constant Attendance Completed 08/17/2021 30703 Therapeutic Procedure, Each 15 M inutes Completed 08/17/2021 66159 Electrical Stimulati on Manual, Each 15 Min, Constant Attendance Completed 08/17/2021 54850 Therapeutic Procedure, Each 15 M inutes Completed 08/15/2021 63803 Therapeutic Procedure, Each 15 M inutes Completed 08/15/2021 07670 Therapeutic Procedure, Each 15 M inutes Completed 08/15/2021 15593 Electrical Stimulati on Manual, Each 15 Min, Constant Attendance Completed 08/15/2021 52184 Hot Or Cold Packs Completed 08/10/2021 35601 Therapeutic Procedure, Each 15 M inutes Completed 08/10/2021 79469 Therapeutic Procedure, Each 15 M inutes Completed 08/10/2021 73835 Electrical Stimulati on Manual, Each 15 Min, Constant Attendance Completed 08/10/2021 73900 Hot Or Cold Packs Completed 08/08/2021 74332 Therapeutic Procedure, Each 15 M inutes Completed 08/08/2021 03555 Therapeutic Procedure, Each 15 M inutes Completed 08/08/2021 07573 Electrical Stimulati on Manual, Each 15 Min, Constant Attendance Completed 08/08/2021 43718 Hot Or Cold Packs Completed 08/03/2021 42148 Therapeutic Procedure, Each 15 M inutes Completed 08/03/2021 89546 Therapeutic Procedure, Each 15 M inutes Completed 08/01/2021 03572 Therapeutic Procedure, Each 15 M inutes Completed 08/01/2021 57810 Therapeutic Procedure, Each 15 M inutes Completed 08/01/2021 69894 Electrical Stimulati on Manual, Each 15 Min, Constant Attendance Completed 08/01/2021 37859 Hot Or Cold Packs Completed 07/27/2021 34055 Therapeutic Procedure, Each 15 M inutes Completed 07/27/2021 27739 Therapeutic Procedure, Each 15 M inutes Completed 07/27/2021 40648 Electrical Stimulati on Manual, Each 15 Min, Constant Attendance Completed 07/27/2021 66073 Hot Or Cold Packs Completed 07/25/2021 95529 Therapeutic Procedure, Each 15 M inutes Completed 07/25/2021 92379 Therapeutic Procedure, Each 15 M inutes Completed 07/25/2021 74156 Electrical Stimulati on Manual, Each 15 Min, Constant Attendance Completed 07/25/2021 83150 Hot Or Cold Packs Completed 07/20/2021 48987 Hot Or Cold Packs Completed 07/20/2021 04183 Electrical Stimulati on Manual, Each 15 Min, Constant Attendance Completed 07/20/2021 05789 Therapeutic Procedure, Each 15 M inutes Completed 07/20/2021 55243 Re-Eval Of PT Establ ished Plan Of Care 20Mins Face To Face PT/Fam Completed 07/20/2021 82785 Therapeutic Procedure, Each 15 M inutes Completed 07/18/2021 29695 Therapeutic Procedure, Each 15 M inutes Completed 07/18/2021 81998 Therapeutic Procedure, Each 15 M inutes Completed 07/18/2021 18167 Electrical Stimulati on Manual, Each 15 Min, Constant Attendance Completed 07/13/2021 60295 Therapeutic Procedure, Each 15 M inutes Completed 07/13/2021 85178 Therapeutic Procedure, Each 15 M inutes Completed 07/13/2021 52641 Electrical Stimulati on Manual, Each 15 Min, Constant Attendance Completed 07/13/2021 81572 Hot Or Cold Packs Completed 07/11/2021 12446 Therapeutic Procedure, Each 15 M inutes Completed 07/11/2021 95323 Hot Or Cold Packs Completed 07/11/2021 33946 Electrical Stimulati on Manual, Each 15 Min, Constant Attendance Completed 07/11/2021 66618 Therapeutic Procedure, Each 15 M inutes Completed 07/06/2021 42748 Therapeutic Procedure, Each 15 M inutes Completed 07/06/2021 01200 Therapeutic Procedure, Each 15 M inutes Completed 07/06/2021 15033 Electrical Stimulati on Manual, Each 15 Min, Constant Attendance Completed 07/06/2021 36223 Hot Or Cold Packs Completed 07/04/2021 80905 Manual Therapy Each 15 Minutes C ompleted 07/04/2021 35775 Hot Or Cold Packs Completed 07/04/2021 50726 Therapeutic Procedure, Each 15 M inutes Completed 07/04/2021 86785 Therapeutic Procedure, Each 15 M inutes Completed 06/30/2021 96162 Therapeutic Procedure, Each 15 M inutes Completed 06/30/2021 14999 Therapeutic Procedure, Each 15 M inutes Completed 06/30/2021 72263 Electrical Stimulati on Manual, Each 15 Min, Constant Attendance Completed 06/30/2021 32579 Hot Or Cold Packs Completed 06/28/2021 12661 Therapeutic Procedure, Each 15 M inutes Completed 06/28/2021 77955 Therapeutic Procedure, Each 15 M inutes Completed 06/28/2021 85896 Electrical Stimulati on Manual, Each 15 Min, Constant Attendance Completed 06/28/2021 54662 Hot Or Cold Packs Completed 06/26/2021 52411 Physical Therapy Eval - Low Comp lexity Completed 06/22/2021 94139 Arthroscopy Knee W/M eniscectomy Inc Chondroplasty (Med Or Lateral Completed 04/10/2021 13209 Office/Outpatient Established Mo d MDM 30-39 Min Completed 04/04/2021 90574 Office/Outpatient Established Lo w MDM 20-29 Min Completed 03/24/2021 58392 MRI Lower Extremity Any Joint Co mpleted Medical Devices Description No Information Available Encounters Type Date Location Provider Dx Diagnosis Office Visit 08/01/2021 5:15p Alfred Chin PA-C Z4 7.89 Encounter for other orthopedic aftercare Office Visit 07/03/2021 4:30p Carolin[facility]inta Chin PA-C Z4 7.89 Encounter for other orthopedic aftercare Office Visit 06/26/2021 3:15p Carolinabinta Martinez MD Z47.89 Encounter for other orthopedic aftercare Office Visit 04/10/2021 2:15p [facility] Flaco Martinez MD M17.12 Unilateral primary osteoarthritis, left knee M94.262 Chondromalacia, left knee Office Visit 04/04/2021 3:45p [facility] ASHLEY Boo M17.32 Unilateral post-traumatic osteoarthritis, left knee M94.262 Chondromalacia, left knee Assessments Date Code Description Provider 08/22/2021 Z47.89 Encounter for other orthopedic a ftercare Madonna M. Rehanpa, MSPT 08/17/2021 Z47.89 Encounter for other orthopedic a ftercare Júnior Damon P.T. 08/15/2021 Z47.89 Encounter for other orthopedic a ftercare Madonna M. Vespa, MSPT 08/10/2021 Z47.89 Encounter for other orthopedic a ftercare Madonna M. Vespa, MSPT 08/08/2021 Z47.89 Encounter for other orthopedic a ftercare Madonna M. Vespa, MSPT 08/03/2021 Z47.89 Encounter for other orthopedic a ftercare Madonna M. Vespa, [email or web address] 08/01/2021 Z47.89 Encounter for other orthopedic a [...] other orthopedic a ftercare Madonna M. Vespa, [email or web address] 07/06/2021 Z47.89 Encounter for other orthopedic a ftercare Madonna M. Rehanpa, [email or web address] 07/04/2021 Z47.89 Encounter for other orthopedic a ftercare Madonna M. Vespa, MSPT 07/03/2021 Z47.89 Encounter for other orthopedic a ftercare Jimenez Chin PA-C 06/30/2021 Z47.89 Encounter for other orthopedic a ftercare Madonna M. Rehanpa, [email or web address] 06/28/2021 Z47.89 Encounter for other orthopedic a ftercare Madonna M. Pancho, [email or web address] 06/26/2021 Z47.89 Encounter for other orthopedic a ftercare Madonna M. Pancho, [email or web address] 06/26/2021 Z47.89 [...] Chin, PA-C PT LT KNEE OK TO REPLACED BY [facility] 2ND SET AFTER SURGERY. PASSED TO PT DEPT. LS Created [address] [place] [address] [phone] Flaco Martinez MD PT LT KNEE OK TO REPLACED BY [facility] 1ST SET AFTER SURGERY. L S Created [address] [place] [phone] Flaco Martinez MD CRUTCHES OK TO SUPPLY HERE. LS Created [address] [place] [address] [phone] Flaco Martinez MD SURGERY LT KNEE DX ARTHROSCO PY WRITTEN AUTH PASSED TO SURGERY. LS Created [address] [place] [address] [phone] January Cuevas MD MRI LT KNEE WRITTEN AUTH AND ONECALL TO REPLACED BY [facility]. 03/16/21 PER ONECALL WE CAN SHA HERE VS VENDOR. PASSED TO XRAY. LS Created [address] [place] [phone]
--- OUTSIDE RECORDS SUMMARY | 2021-11-02 08:35 | CCD | Continuity of Care Document ---
Author Author Edith DELEON MSPT Organization Unknown Address [address] [place] [phone] Phone [phone] Care Team Providers Care Modeling And Simulation Analyst Name Role Phone [employer] SAW AUTM [phone] Mahesh Monaco MD AUTM [phone] Faiza Gupta MD AUTM Mahesh Monaco MD AUTM [phone] Problems Active Problems Provider Date Patellar tendonitis [...] NEGATIVE Procedures Date Code Description Status 08/15/2021 62853 Therapeutic Procedure, Each 15 M inutes Completed 08/15/2021 03512 Electrical Stimulati on Manual, Each 15 Min, Constant Attendance Completed 08/15/2021 86687 Hot Or Cold Packs Completed 08/15/2021 24860 Therapeutic Procedure, Each 15 M inutes Completed 08/10/2021 38049 Therapeutic Procedure, Each 15 M inutes Completed 08/10/2021 17906 Therapeutic Procedure, Each 15 M inutes Completed 08/10/2021 12041 Electrical Stimulati on Manual, Each 15 Min, Constant Attendance Completed 08/10/2021 64952 Hot Or Cold Packs Completed 08/08/2021 07404 Therapeutic Procedure, Each 15 M inutes Completed 08/08/2021 81469 Therapeutic Procedure, Each 15 M inutes Completed 08/08/2021 90456 Electrical Stimulati on Manual, Each 15 Min, Constant Attendance Completed 08/08/2021 17605 Hot Or Cold Packs Completed 08/03/2021 72299 Therapeutic Procedure, Each 15 M inutes Completed 08/03/2021 63480 Therapeutic Procedure, Each 15 M inutes Completed 08/01/2021 31706 Electrical Stimulati on Manual, Each 15 Min, Constant Attendance Completed 08/01/2021 11720 Hot Or Cold Packs Completed 08/01/2021 94137 Therapeutic Procedure, Each 15 M inutes Completed 08/01/2021 26954 Therapeutic Procedure, Each 15 M inutes Completed 07/27/2021 77857 Therapeutic Procedure, Each 15 M inutes Completed 07/27/2021 63003 Therapeutic Procedure, Each 15 M inutes Completed 07/27/2021 24285 Electrical Stimulati on Manual, Each 15 Min, Constant Attendance Completed 07/27/2021 29952 Hot Or Cold Packs Completed 07/25/2021 06464 Electrical Stimulati on Manual, Each 15 Min, Constant Attendance Completed 07/25/2021 09893 Hot Or Cold Packs Completed 07/25/2021 39053 Therapeutic Procedure, Each 15 M inutes Completed 07/25/2021 57154 Therapeutic Procedure, Each 15 M inutes Completed 07/20/2021 01072 Re-Eval Of PT Establ ished Plan Of Care 20Mins Face To Face PT/Fam Completed 07/20/2021 67638 Therapeutic Procedure, Each 15 M inutes Completed 07/20/2021 07187 Therapeutic Procedure, Each 15 M inutes Completed 07/20/2021 24627 Electrical Stimulati on Manual, Each 15 Min, Constant Attendance Completed 07/20/2021 67373 Hot Or Cold Packs Completed 07/18/2021 01822 Therapeutic Procedure, Each 15 M inutes Completed 07/18/2021 55972 Electrical Stimulati on Manual, Each 15 Min, Constant Attendance Completed 07/18/2021 26441 Therapeutic Procedure, Each 15 M inutes Completed 07/13/2021 05223 Therapeutic Procedure, Each 15 M inutes Completed 07/13/2021 12808 Therapeutic Procedure, Each 15 M inutes Completed 07/13/2021 33159 Electrical Stimulati on Manual, Each 15 Min, Constant Attendance Completed 07/13/2021 86409 Hot Or Cold Packs Completed 07/11/2021 16057 Therapeutic Procedure, Each 15 M inutes Completed 07/11/2021 28256 Therapeutic Procedure, Each 15 M inutes Completed 07/11/2021 60541 Electrical Stimulati on Manual, Each 15 Min, Constant Attendance Completed 07/11/2021 10382 Hot Or Cold Packs Completed 07/06/2021 12163 Therapeutic Procedure, Each 15 M inutes Completed 07/06/2021 77292 Therapeutic Procedure, Each 15 M inutes Completed 07/06/2021 05630 Electrical Stimulati on Manual, Each 15 Min, Constant Attendance Completed 07/06/2021 91308 Hot Or Cold Packs Completed 07/04/2021 38414 Therapeutic Procedure, Each 15 M inutes Completed 07/04/2021 39386 Hot Or Cold Packs Completed 07/04/2021 61717 Therapeutic Procedure, Each 15 M inutes Completed 07/04/2021 69531 Manual Therapy Each 15 Minutes C ompleted 06/30/2021 65571 Therapeutic Procedure, Each 15 M inutes Completed 06/30/2021 89169 Therapeutic Procedure, Each 15 M inutes Completed 06/30/2021 66951 Electrical Stimulati on Manual, Each 15 Min, Constant Attendance Completed 06/30/2021 25035 Hot Or Cold Packs Completed 06/28/2021 59983 Therapeutic Procedure, Each 15 M inutes Completed 06/28/2021 06013 Therapeutic Procedure, Each 15 M inutes Completed 06/28/2021 81639 Electrical Stimulati on Manual, Each 15 Min, Constant Attendance Completed 06/28/2021 76532 Hot Or Cold Packs Completed 06/26/2021 85879 Physical Therapy Eval - Low Comp lexity Completed 06/22/2021 00694 Arthroscopy Knee W/M eniscectomy Inc Chondroplasty (Med Or Lateral Completed 04/10/2021 46706 Office/Outpatient Established Mo d MDM 30-39 Min Completed 04/04/2021 97564 Office/Outpatient Established Lo w MDM 20-29 Min Completed 03/24/2021 67323 MRI Lower Extremity Any Joint Co mpleted [...] Chondromalacia, left knee Office Visit 04/04/2021 3:45p [facility] ASHLEY Boo M17.32 Unilateral post-traumatic osteoarthritis, left [...] 5:15 pm - Jimenez Chin PA-C at [facility] Functional Status Description No Information Available Mental Status Description No Information Available Referrals Refer to Dr Reason for Referral Status Appt Date Jimenez Chin PA-C PT LT KNEE OK TO [facility] 2ND SET AFTER SURGERY. PASSED TO PT DEPT. LS Created [facility] [address] [place] [address] [phone] Flaco Martinez MD PT LT KNEE OK TO [facility] 1ST SET AFTER SURGERY. L S Created [facility], [address] [address] [phone] Flaco Martinez MD CRUTCHES OK TO SUPPLY HERE. LS Created [facility], [address] [address] [phone] Flaco Martinez MD SURGERY LT KNEE DX ARTHROSCO PY WRITTEN AUTH PASSED TO SURGERY. LS Created [facility], [address] [address] [phone] January Cuevas MD MRI LT KNEE WRITTEN AUTH AND ONECALL TO [facility]. MARIA A 03/16/21 PER ONECALL WE CAN [facility] HERE VS VENDOR. PASSED TO XRAY. MARIA A Created [address] [place] [address], [address] [address] [phone]
--- OUTSIDE RECORDS SUMMARY | 2021-11-02 08:35 | CCD | Continuity of Care Document ---
Author Author Edith DELEON MSPT Organization Unknown Address [address] [place] [address] Phone [phone] Care Team Providers Care Dehydrogenation Converter Helper Name Role Phone [employer] SAW AUTM [phone] Mahesh Monaco MD AUTM [phone] Faiza Gupta MD AUTM Mahesh Monaco MD AUTM [phone] Problems Active Problems Provider Date Patellar tendonitis [...] NEGATIVE Procedures Date Code Description Status 08/15/2021 12701 Therapeutic Procedure, Each 15 M inutes Completed 08/15/2021 56031 Electrical Stimulati on Manual, Each 15 Min, Constant Attendance Completed 08/15/2021 36751 Hot Or Cold Packs Completed 08/15/2021 44933 Therapeutic Procedure, Each 15 M inutes Completed 08/10/2021 59682 Therapeutic Procedure, Each 15 M inutes Completed 08/10/2021 03569 Therapeutic Procedure, Each 15 M inutes Completed 08/10/2021 56976 Electrical Stimulati on Manual, Each 15 Min, Constant Attendance Completed 08/10/2021 06859 Hot Or Cold Packs Completed 08/08/2021 30768 Therapeutic Procedure, Each 15 M inutes Completed 08/08/2021 67489 Therapeutic Procedure, Each 15 M inutes Completed 08/08/2021 28448 Electrical Stimulati on Manual, Each 15 Min, Constant Attendance Completed 08/08/2021 22032 Hot Or Cold Packs Completed 08/03/2021 89798 Therapeutic Procedure, Each 15 M inutes Completed 08/03/2021 77958 Therapeutic Procedure, Each 15 M inutes Completed 08/01/2021 56543 Electrical Stimulati on Manual, Each 15 Min, Constant Attendance Completed 08/01/2021 98883 Hot Or Cold Packs Completed 08/01/2021 93326 Therapeutic Procedure, Each 15 M inutes Completed 08/01/2021 40635 Therapeutic Procedure, Each 15 M inutes Completed 07/27/2021 36498 Therapeutic Procedure, Each 15 M inutes Completed 07/27/2021 72857 Therapeutic Procedure, Each 15 M inutes Completed 07/27/2021 54437 Electrical Stimulati on Manual, Each 15 Min, Constant Attendance Completed 07/27/2021 21542 Hot Or Cold Packs Completed 07/25/2021 56175 Electrical Stimulati on Manual, Each 15 Min, Constant Attendance Completed 07/25/2021 78634 Hot Or Cold Packs Completed 07/25/2021 04082 Therapeutic Procedure, Each 15 M inutes Completed 07/25/2021 60243 Therapeutic Procedure, Each 15 M inutes Completed 07/20/2021 42299 Re-Eval Of PT Establ ished Plan Of Care 20Mins Face To Face PT/Fam Completed 07/20/2021 38721 Therapeutic Procedure, Each 15 M inutes Completed 07/20/2021 38944 Therapeutic Procedure, Each 15 M inutes Completed 07/20/2021 54902 Electrical Stimulati on Manual, Each 15 Min, Constant Attendance Completed 07/20/2021 58426 Hot Or Cold Packs Completed 07/18/2021 63362 Therapeutic Procedure, Each 15 M inutes Completed 07/18/2021 89811 Electrical Stimulati on Manual, Each 15 Min, Constant Attendance Completed 07/18/2021 27020 Therapeutic Procedure, Each 15 M inutes Completed 07/13/2021 42086 Therapeutic Procedure, Each 15 M inutes Completed 07/13/2021 83695 Therapeutic Procedure, Each 15 M inutes Completed 07/13/2021 38196 Electrical Stimulati on Manual, Each 15 Min, Constant Attendance Completed 07/13/2021 94466 Hot Or Cold Packs Completed 07/11/2021 76268 Therapeutic Procedure, Each 15 M inutes Completed 07/11/2021 47713 Therapeutic Procedure, Each 15 M inutes Completed 07/11/2021 69066 Electrical Stimulati on Manual, Each 15 Min, Constant Attendance Completed 07/11/2021 31832 Hot Or Cold Packs Completed 07/06/2021 19971 Therapeutic Procedure, Each 15 M inutes Completed 07/06/2021 05912 Therapeutic Procedure, Each 15 M inutes Completed 07/06/2021 91598 Electrical Stimulati on Manual, Each 15 Min, Constant Attendance Completed 07/06/2021 08312 Hot Or Cold Packs Completed 07/04/2021 51123 Therapeutic Procedure, Each 15 M inutes Completed 07/04/2021 38734 Hot Or Cold Packs Completed 07/04/2021 58130 Therapeutic Procedure, Each 15 M inutes Completed 07/04/2021 38880 Manual Therapy Each 15 Minutes C ompleted 06/30/2021 72777 Therapeutic Procedure, Each 15 M inutes Completed 06/30/2021 76132 Therapeutic Procedure, Each 15 M inutes Completed 06/30/2021 82045 Electrical Stimulati on Manual, Each 15 Min, Constant Attendance Completed 06/30/2021 87455 Hot Or Cold Packs Completed 06/28/2021 24196 Therapeutic Procedure, Each 15 M inutes Completed 06/28/2021 62322 Therapeutic Procedure, Each 15 M inutes Completed 06/28/2021 20643 Electrical Stimulati on Manual, Each 15 Min, Constant Attendance Completed 06/28/2021 02997 Hot Or Cold Packs Completed 06/26/2021 18532 Physical Therapy Eval - Low Comp lexity Completed 06/22/2021 47567 Arthroscopy Knee W/M eniscectomy Inc Chondroplasty (Med Or Lateral Completed 04/10/2021 54012 Office/Outpatient Established Mo d MDM 30-39 Min Completed 04/04/2021 51242 Office/Outpatient Established Lo w MDM 20-29 Min Completed 03/24/2021 16174 MRI Lower Extremity Any Joint Co mpleted [...] Chondromalacia, left knee Office Visit 04/04/2021 3:45p [place] ASHLEY Boo M17.32 Unilateral post-traumatic osteoarthritis, left [...] 5:15 pm - Jimenez Chin PA-C at [place] Functional Status Description No Information Available Mental Status Description No Information Available Referrals Refer to Dr Reason for Referral Status Appt Date Jimenez Chin PA-C PT LT KNEE OK TO [facility] 2ND SET AFTER SURGERY. PASSED TO PT DEPT. LS Created [facility] [address] [place] [address] [phone] Flaco Martinez MD PT LT KNEE OK TO [facility] 1ST SET AFTER SURGERY. L S Created [facility], [address] [address] [phone] Flaco Martinez MD CRUTCHES OK TO SUPPLY HERE. LS Created [facility], [address] [address] [phone] Flaco Martinez MD SURGERY LT KNEE DX ARTHROSCO PY WRITTEN AUTH PASSED TO SURGERY. LS Created [facility], [address] [address] [phone] January Cuevas MD MRI LT KNEE WRITTEN AUTH AND ONECALL TO [facility]. MARIA A 03/16/21 PER ONECALL WE CAN [facility] HERE VS VENDOR. PASSED TO XRAY. MARIA A Created [address] [place] [address], [address] [address] [phone]
--- OUTSIDE RECORDS SUMMARY | 2021-11-02 08:35 | CCD | Continuity of Care Document ---
Author Author Edith YO MSPT Organization Unknown Address [address] [place] [address] Phone [phone] Care Team Providers Care Cotton Broker Name Role Phone [employer] SAW AUTM [phone] Mahesh Monaco MD AUTM [phone] Faiza Gupta MD AUTM Mahesh Monaco MD AUTM [phone] Problems Active Problems Provider Date Patellar tendonitis [...] NEGATIVE Procedures Date Code Description Status 08/22/2021 86724 Therapeutic Procedure, Each 15 M inutes Completed 08/22/2021 72054 Therapeutic Procedure, Each 15 M inutes Completed 08/22/2021 84947 Hot Or Cold Packs Completed 08/22/2021 15068 Electrical Stimulati on Manual, Each 15 Min, Constant Attendance Completed 08/17/2021 03758 Therapeutic Procedure, Each 15 M inutes Completed 08/17/2021 53956 Electrical Stimulati on Manual, Each 15 Min, Constant Attendance Completed 08/17/2021 13245 Therapeutic Procedure, Each 15 M inutes Completed 08/15/2021 85077 Therapeutic Procedure, Each 15 M inutes Completed 08/15/2021 44371 Therapeutic Procedure, Each 15 M inutes Completed 08/15/2021 25512 Electrical Stimulati on Manual, Each 15 Min, Constant Attendance Completed 08/15/2021 46959 Hot Or Cold Packs Completed 08/10/2021 47258 Therapeutic Procedure, Each 15 M inutes Completed 08/10/2021 04624 Therapeutic Procedure, Each 15 M inutes Completed 08/10/2021 18297 Electrical Stimulati on Manual, Each 15 Min, Constant Attendance Completed 08/10/2021 06342 Hot Or Cold Packs Completed 08/08/2021 59314 Therapeutic Procedure, Each 15 M inutes Completed 08/08/2021 20209 Therapeutic Procedure, Each 15 M inutes Completed 08/08/2021 42095 Electrical Stimulati on Manual, Each 15 Min, Constant Attendance Completed 08/08/2021 88775 Hot Or Cold Packs Completed 08/03/2021 96102 Therapeutic Procedure, Each 15 M inutes Completed 08/03/2021 81459 Therapeutic Procedure, Each 15 M inutes Completed 08/01/2021 45759 Therapeutic Procedure, Each 15 M inutes Completed 08/01/2021 58686 Therapeutic Procedure, Each 15 M inutes Completed 08/01/2021 63642 Electrical Stimulati on Manual, Each 15 Min, Constant Attendance Completed 08/01/2021 42300 Hot Or Cold Packs Completed 07/27/2021 41085 Therapeutic Procedure, Each 15 M inutes Completed 07/27/2021 96417 Therapeutic Procedure, Each 15 M inutes Completed 07/27/2021 35230 Electrical Stimulati on Manual, Each 15 Min, Constant Attendance Completed 07/27/2021 12259 Hot Or Cold Packs Completed 07/25/2021 70146 Therapeutic Procedure, Each 15 M inutes Completed 07/25/2021 45971 Therapeutic Procedure, Each 15 M inutes Completed 07/25/2021 04625 Electrical Stimulati on Manual, Each 15 Min, Constant Attendance Completed 07/25/2021 22029 Hot Or Cold Packs Completed 07/20/2021 62795 Hot Or Cold Packs Completed 07/20/2021 12623 Electrical Stimulati on Manual, Each 15 Min, Constant Attendance Completed 07/20/2021 89412 Therapeutic Procedure, Each 15 M inutes Completed 07/20/2021 89535 Re-Eval Of PT Establ ished Plan Of Care 20Mins Face To Face PT/Fam Completed 07/20/2021 87289 Therapeutic Procedure, Each 15 M inutes Completed 07/18/2021 41714 Therapeutic Procedure, Each 15 M inutes Completed 07/18/2021 11633 Therapeutic Procedure, Each 15 M inutes Completed 07/18/2021 26971 Electrical Stimulati on Manual, Each 15 Min, Constant Attendance Completed 07/13/2021 63773 Therapeutic Procedure, Each 15 M inutes Completed 07/13/2021 50231 Therapeutic Procedure, Each 15 M inutes Completed 07/13/2021 82410 Electrical Stimulati on Manual, Each 15 Min, Constant Attendance Completed 07/13/2021 35542 Hot Or Cold Packs Completed 07/11/2021 57973 Therapeutic Procedure, Each 15 M inutes Completed 07/11/2021 65590 Hot Or Cold Packs Completed 07/11/2021 03763 Electrical Stimulati on Manual, Each 15 Min, Constant Attendance Completed 07/11/2021 65401 Therapeutic Procedure, Each 15 M inutes Completed 07/06/2021 29953 Therapeutic Procedure, Each 15 M inutes Completed 07/06/2021 21267 Therapeutic Procedure, Each 15 M inutes Completed 07/06/2021 67174 Electrical Stimulati on Manual, Each 15 Min, Constant Attendance Completed 07/06/2021 68290 Hot Or Cold Packs Completed 07/04/2021 95557 Manual Therapy Each 15 Minutes C ompleted 07/04/2021 99678 Hot Or Cold Packs Completed 07/04/2021 75811 Therapeutic Procedure, Each 15 M inutes Completed 07/04/2021 72576 Therapeutic Procedure, Each 15 M inutes Completed 06/30/2021 55183 Therapeutic Procedure, Each 15 M inutes Completed 06/30/2021 69697 Therapeutic Procedure, Each 15 M inutes Completed 06/30/2021 19595 Electrical Stimulati on Manual, Each 15 Min, Constant Attendance Completed 06/30/2021 45834 Hot Or Cold Packs Completed 06/28/2021 69103 Therapeutic Procedure, Each 15 M inutes Completed 06/28/2021 89069 Therapeutic Procedure, Each 15 M inutes Completed 06/28/2021 73939 Electrical Stimulati on Manual, Each 15 Min, Constant Attendance Completed 06/28/2021 65278 Hot Or Cold Packs Completed 06/26/2021 11719 Physical Therapy Eval - Low Comp lexity Completed 06/22/2021 46584 Arthroscopy Knee W/M eniscectomy Inc Chondroplasty (Med Or Lateral Completed 04/10/2021 89789 Office/Outpatient Established Mo d MDM 30-39 Min Completed 04/04/2021 68061 Office/Outpatient Established Lo w MDM 20-29 Min Completed 03/24/2021 47918 MRI Lower Extremity Any Joint Co mpleted Medical Devices Description No Information Available Encounters Type Date Location Provider Dx Diagnosis Office Visit 08/01/2021 5:15p [place] Barratt M. Chin, PA-C Z4 7.89 Encounter for other orthopedic aftercare Office Visit 07/03/2021 4:30p [place] Jimenez Chin PA-C Z4 7.89 Encounter for other orthopedic aftercare Office Visit 06/26/2021 3[place]p [place] MD Z47.89 Encounter for other orthopedic aftercare Office Visit 04/10/2021 2:15p [place] Flaco Martinez MD M17.12 Unilateral primary osteoarthritis, left knee M94.262 Chondromalacia, left knee Office Visit 04/04/2021 3:45p [place] FELECIA Boo M17.32 Unilateral post-traumatic osteoarthritis, left knee M94.262 Chondromalacia, left knee Assessments Date Code Description Provider 08/22/2021 Z47.89 Encounter for other orthopedic a ftercare Madonna [facility]. [facility]felecia, [facility] 08/17/2021 Z47.89 Encounter for other orthopedic a ftercare Júnior Damon P.T. 08/15/2021 Z47.89 Encounter for other orthopedic a ftercare Madonna M. Vespa, MSPT 08/10/2021 Z47.89 Encounter for other orthopedic a ftercare Madonna M. Vespa, [facility] 08/08/2021 Z47.89 Encounter for other orthopedic a ftercare Madonna M. Vespa, MSPT 08/03/2021 Z47.89 Encounter for other orthopedic a ftercare Madonna M. Vespa, [facility] 08/01/2021 Z47.89 Encounter for other orthopedic a ftercare Jimenez Chin PA-C 08/01/2021 Z47.89 Encounter for other orthopedic a ftercare Madonna M. Vespa, MSPT 07/27/2021 Z47.89 Encounter for other orthopedic a ftercare Madonna M. Vespa, MSPT 07/25/2021 Z47.89 Encounter for other orthopedic a ftercare Júnior aDmon P.T. 07/20/2021 Z47.89 Encounter for other orthopedic [...] other orthopedic a ftercare Madonna Posada. Pancho, [facility] 06/28/2021 Z47.89 Encounter for other orthopedic a ftercare Madonna Posada. Pancho, [facility] 06/26/2021 Z47.89 Encounter for other orthopedic a ftercare Madonna Posada. Pancho, [facility] 06/26/2021 Z47.89 Encounter for other orthopedic [...] Chin, PA-C PT LT KNEE OK TO [facility] 2ND SET AFTER SURGERY. PASSED TO PT DEPT. LS Created [address] [place] [address] [phone] Flaco Martinez MD PT LT KNEE OK TO [facility] 1ST SET AFTER SURGERY. L S Created [address] [place] [phone] Flaco Martinez MD CRUTCHES OK TO SUPPLY HERE. LS Created [address] [place] [address] [phone] Flaco Martinez MD SURGERY LT KNEE DX ARTHROSCO PY WRITTEN AUTH PASSED TO SURGERY. LS Created [address] [place] [phone] January Cuevas MD MRI LT KNEE WRITTEN AUTH AND ONECALL TO [facility]. 03/16/21 PER ONECALL WE CAN [facility] HERE VS VENDOR. PASSED TO XRAY. LS Created [address] [place] [phone]
--- OUTSIDE RECORDS SUMMARY | 2021-11-02 08:35 | CCD | Continuity of Care Document ---
Author Author Edith CHIN PA-C Organization Unknown Address [address] [address] Phone [phone] Care Team Providers Care Wire Steward Name Role Phone [employer] SAW AUTM [phone] Mahesh Monaco MD AUTM [phone] Faiza Gupta MD AUTM Mahesh Monaco MD AUTM [phone] Problems Active Problems Provider Date Patellar tendonitis [...] NEGATIVE Procedures Date Code Description Status 08/24/2021 46658 Therapeutic Procedure, Each 15 M inutes Completed 08/24/2021 65455 Electrical Stimulati on Manual, Each 15 Min, Constant Attendance Completed 08/24/2021 31856 Hot Or Cold Packs Completed 08/24/2021 75503 Therapeutic Procedure, Each 15 M inutes Completed 08/22/2021 81759 Therapeutic Procedure, Each 15 M inutes Completed 08/22/2021 72342 Therapeutic Procedure, Each 15 M inutes Completed 08/22/2021 65468 Electrical Stimulati on Manual, Each 15 Min, Constant Attendance Completed 08/22/2021 51179 Hot Or Cold Packs Completed 08/17/2021 66310 Electrical Stimulati on Manual, Each 15 Min, Constant Attendance Completed 08/17/2021 59153 Therapeutic Procedure, Each 15 M inutes Completed 08/17/2021 79807 Therapeutic Procedure, Each 15 M inutes Completed 08/15/2021 71223 Therapeutic Procedure, Each 15 M inutes Completed 08/15/2021 53530 Therapeutic Procedure, Each 15 M inutes Completed 08/15/2021 17722 Electrical Stimulati on Manual, Each 15 Min, Constant Attendance Completed 08/15/2021 60284 Hot Or Cold Packs Completed 08/10/2021 58822 Therapeutic Procedure, Each 15 M inutes Completed 08/10/2021 30717 Therapeutic Procedure, Each 15 M inutes Completed 08/10/2021 11633 Electrical Stimulati on Manual, Each 15 Min, Constant Attendance Completed 08/10/2021 31751 Hot Or Cold Packs Completed 08/08/2021 11166 Therapeutic Procedure, Each 15 M inutes Completed 08/08/2021 37499 Hot Or Cold Packs Completed 08/08/2021 85570 Electrical Stimulati on Manual, Each 15 Min, Constant Attendance Completed 08/08/2021 92488 Therapeutic Procedure, Each 15 M inutes Completed 08/03/2021 02468 Therapeutic Procedure, Each 15 M inutes Completed 08/03/2021 54520 Therapeutic Procedure, Each 15 M inutes Completed 08/01/2021 07102 Therapeutic Procedure, Each 15 M inutes Completed 08/01/2021 82588 Therapeutic Procedure, Each 15 M inutes Completed 08/01/2021 48785 Electrical Stimulati on Manual, Each 15 Min, Constant Attendance Completed 08/01/2021 00315 Hot Or Cold Packs Completed 07/27/2021 59979 Therapeutic Procedure, Each 15 M inutes Completed 07/27/2021 09327 Therapeutic Procedure, Each 15 M inutes Completed 07/27/2021 11820 Electrical Stimulati on Manual, Each 15 Min, Constant Attendance Completed 07/27/2021 09688 Hot Or Cold Packs Completed 07/25/2021 66563 Therapeutic Procedure, Each 15 M inutes Completed 07/25/2021 95123 Therapeutic Procedure, Each 15 M inutes Completed 07/25/2021 82886 Electrical Stimulati on Manual, Each 15 Min, Constant Attendance Completed 07/25/2021 18556 Hot Or Cold Packs Completed 07/20/2021 51849 Electrical Stimulati on Manual, Each 15 Min, Constant Attendance Completed 07/20/2021 35853 Hot Or Cold Packs Completed 07/20/2021 84029 Re-Eval Of PT Establ ished Plan Of Care 20Mins Face To Face PT/Fam Completed 07/20/2021 79335 Therapeutic Procedure, Each 15 M inutes Completed 07/20/2021 15537 Therapeutic Procedure, Each 15 M inutes Completed 07/18/2021 25813 Therapeutic Procedure, Each 15 M inutes Completed 07/18/2021 27440 Therapeutic Procedure, Each 15 M inutes Completed 07/18/2021 82868 Electrical Stimulati on Manual, Each 15 Min, Constant Attendance Completed 07/13/2021 14863 Therapeutic Procedure, Each 15 M inutes Completed 07/13/2021 03735 Therapeutic Procedure, Each 15 M inutes Completed 07/13/2021 87906 Electrical Stimulati on Manual, Each 15 Min, Constant Attendance Completed 07/13/2021 35248 Hot Or Cold Packs Completed 07/11/2021 69729 Therapeutic Procedure, Each 15 M inutes Completed 07/11/2021 64700 Hot Or Cold Packs Completed 07/11/2021 27581 Electrical Stimulati on Manual, Each 15 Min, Constant Attendance Completed 07/11/2021 54199 Therapeutic Procedure, Each 15 M inutes Completed 07/06/2021 88077 Therapeutic Procedure, Each 15 M inutes Completed 07/06/2021 64111 Therapeutic Procedure, Each 15 M inutes Completed 07/06/2021 58131 Electrical Stimulati on Manual, Each 15 Min, Constant Attendance Completed 07/06/2021 06394 Hot Or Cold Packs Completed 07/04/2021 00796 Manual Therapy Each 15 Minutes C ompleted 07/04/2021 54825 Hot Or Cold Packs Completed 07/04/2021 41374 Therapeutic Procedure, Each 15 M inutes Completed 07/04/2021 27028 Therapeutic Procedure, Each 15 M inutes Completed 06/30/2021 48715 Therapeutic Procedure, Each 15 M inutes Completed 06/30/2021 75842 Therapeutic Procedure, Each 15 M inutes Completed 06/30/2021 64461 Electrical Stimulati on Manual, Each 15 Min, Constant Attendance Completed 06/30/2021 73741 Hot Or Cold Packs Completed 06/28/2021 09848 Therapeutic Procedure, Each 15 M inutes Completed 06/28/2021 22330 Therapeutic Procedure, Each 15 M inutes Completed 06/28/2021 75435 Electrical Stimulati on Manual, Each 15 Min, Constant Attendance Completed 06/28/2021 94084 Hot Or Cold Packs Completed 06/26/2021 23212 Physical Therapy Eval - Low Comp lexity Completed 06/22/2021 12227 Arthroscopy Knee W/M eniscectomy Inc Chondroplasty (Med Or Lateral Completed 04/10/2021 87033 Office/Outpatient Established Mo d MDM 30-39 Min Completed 04/04/2021 94256 Office/Outpatient Established w [facility] 20-29 Min Completed 03/24/2021 56926 MRI Lower Extremity Any Joint Co mpleted [...] for other orthopedic a ftercare Madonna Deleon, [facility] 08/22/2021 Z47.89 Encounter for other orthopedic a ftercare Madonna Deleon, [facility] 08/17/2021 Z47.89 Encounter for other orthopedic a ftercare Júnior Damon P.T. 08/15/2021 Z47.89 Encounter for other orthopedic a ftercare Madonna Deleon, [facility] 08/10/2021 Z47.89 Encounter for other orthopedic a ftercare Madonna Deleon, [facility] 08/08/2021 Z47.89 Encounter for other orthopedic a [...] pm - MINDY AlvesT at Physical Therapy 08/24/2021 - Jimenez Chin PA-C* Z47.89 Encounter for other orthopedic aftercare * M25.562 Pain in left knee* Follow up:* 2 weeks for lt knee recheck with [facility] Functional Status Description No Information Available Mental Status Description No Information Available Referrals Refer to Dr Reason for Referral Status Appt Date Jimenez Chin PA-C PT LT KNEE OK TO [facility] 2ND SET AFTER SURGERY. PASSED TO PT DEPT. LS Created [address] [place] [address] [address] [place] [address] [phone] Flaco Martinez MD PT LT KNEE OK TO [facility] 1ST SET AFTER SURGERY. L S Created [address] [facility], [address] [place] [address] [phone] Flaco Martinez MD CRUTCHES OK TO SUPPLY HERE. LS Created [address] [facility], [address] [address] [phone] Flaco Martinez MD SURGERY LT KNEE DX ARTHROSCO PY WRITTEN AUTH PASSED TO SURGERY. LS Created [facility], [address] [address] [phone] January Cuevas MD MRI LT KNEE WRITTEN AUTH AND ONECALL TO [facility]. MARIA A 03/16/21 PER ONECALL WE CAN SHA HERE VS VENDOR. PASSED TO XRAY. LS Created [facility], [address] [place] [address] [phone]
--- OUTSIDE RECORDS SUMMARY | 2021-11-02 08:36 | CCD ---
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 Name Role Phone Fish, B Flaco BALL Unavailable Unavailable Fish, B Flaco BALL Unavailable Unavailable Fish, B Flaco BALL Unavailable Unavailable Fish, B Flaco BALL Unavailable Unavailable Fish, B Flaco BALL Unavailable Unavailable Fish, B Flaco BALL Unavailable Unavailable Fish, B Flaco BALL Unavailable Unavailable Fish, B Flaco BALL Unavailable Unavailable Fish, B Flaco BALL Unavailable Unavailable Fish, B Flaco BALL Unavailable Unavailable Fish, B Flaco BALL Unavailable Unavailable Fish, B Flaco BALL Unavailable Unavailable Fish, B Flaco BALL Unavailable Unavailable Fish, B Flaco BALL Unavailable Unavailable Fish, B Flaco BALL Unavailable Unavailable Fish, B Flaco BALL Unavailable Unavailable Fish, B Flaco BALL Unavailable Unavailable Fish, B Flaco BALL Unavailable Unavailable Fish, B Flaco BALL Unavailable Unavailable Fish, B Flaco BALL Unavailable Unavailable Fish, B Flaco BALL Unavailable Unavailable Fish, B Flaco BALL Unavailable Unavailable Fish, B Flaco BALL Unavailable Unavailable Fish, B Flaco BALL Unavailable Unavailable Fish, B Flaco BALL Unavailable Unavailable Fish, B Flaco BALL Unavailable Unavailable Fish, B Flaco BALL Unavailable Unavailable Fish, B Flaco BALL Unavailable Unavailable Fish, B Flaco BALL Unavailable Unavailable Fish, B Flaco BALL Unavailable Unavailable Fish, Waqar Sam MD Unavailable Unavailable Fish, Waqar Sam MD Unavailable Unavailable Fish, Waqar Sam MD Unavailable Unavailable Fish, Waqar Sam MD Unavailable Unavailable Fish, Waqar Sam MD Unavailable Unavailable Fish, Waqar Sam MD Unavailable Unavailable Fish, Waqar Sam MD Unavailable Unavailable Fish, Waqar Sam MD Unavailable Unavailable Fish, Waqar Sam MD Unavailable Unavailable Fish, Waqar Sam MD Unavailable Unavailable Fish, B Flaco BALL Unavailable Unavailable Fish, B Flaco BALL Unavailable Unavailable Fish, B Flaco BALL Unavailable Unavailable Fish, B Flaco BALL Unavailable Unavailable Fish, Waqar Sam MD Unavailable Unavailable Fish, B Flaco BALL Unavailable Unavailable Fish, Waqar Sam MD Unavailable Unavailable Fish, B Flaco BALL Unavailable Unavailable Fish, B Flaco BALL Unavailable Unavailable Fish, B Flaco BALL Unavailable Unavailable Fish, B Flaco BALL Unavailable Unavailable Fish, B Flaco BALL Unavailable Unavailable Fish, B Flaco BALL Unavailable Unavailable Fish, B Flaco BALL Unavailable Unavailable Fish, B Flaco BALL Unavailable Unavailable Fish, Waqar Sam MD Unavailable Unavailable Chin, M Barratt PA Unavailable Unavailable Chin, M Barratt PA Unavailable Unavailable Chin, M Barratt PA Unavailable Unavailable Chin, M Barratt PA Unavailable Unavailable Chin, M Barratt PA Unavailable Unavailable Chin, M Barratt PA Unavailable Unavailable Chin, M Barratt PA Unavailable Unavailable Chin, M Barratt PA Unavailable Unavailable Chin, M Barratt PA Unavailable Unavailable Chin, M Barratt PA Unavailable Unavailable Cihn, M Barratt PA Unavailable Unavailable Chin, M Barratt PA Unavailable Unavailable Chin, M Barratt PA Unavailable Unavailable Chin, M Barratt PA Unavailable Unavailable Chin, M Barratt PA Unavailable Unavailable Chin, M Barratt PA Unavailable Unavailable Chin, M Barratt PA Unavailable Unavailable Chin, M Barratt PA Unavailable Unavailable Chin, M Barratt PA Unavailable Unavailable Chin, M Barratt PA Unavailable Unavailable Chin, M Barratt PA Unavailable Unavailable Chin, M Barratt PA Unavailable Unavailable Chin, M Barratt PA Unavailable Unavailable Chin, M Barratt PA Unavailable Unavailable Chin, M Barratt PA Unavailable Unavailable Chin, M Barratt PA Unavailable Unavailable Chin, M Barratt PA Unavailable Unavailable Chin, M Barratt PA Unavailable Unavailable Chin, M Barratt PA Unavailable Unavailable DRAZEK, I LAZARO PA Unavailable Unavailable DRAZEK, I LAZARO PA Unavailable Unavailable DRAZEK, I LAZARO PA Unavailable Unavailable DRAZEK, I LAZARO PA Unavailable Unavailable DRAZEK, I LAZARO PA Unavailable Unavailable DRAZEK, I LAZARO PA Unavailable Unavailable DRAZEK, I LAZARO PA Unavailable Unavailable DRAZEK, I LAZARO PA Unavailable Unavailable DRAZEK, I LAZARO PA Unavailable Unavailable DRAZEK, I LAZRAO PA Unavailable Unavailable DRAZEK, I LAZARO PA Unavailable Unavailable DRAZEK, I LAZARO PA Unavailable Unavailable DRAZEK, I LAZARO PA Unavailable Unavailable DRAZEK, I LAZARO PA Unavailable Unavailable DRAZEK, I LAZARO PA Unavailable Unavailable DRAZEK, I LAZARO PA Unavailable Unavailable DRAZEK, I LAZARO PA Unavailable Unavailable DRAZEK, I LAZARO PA Unavailable Unavailable DRAZEK, I LAZARO PA Unavailable Unavailable DRAZEK, I LAZARO PA Unavailable Unavailable DRAZEK, I LAZARO PA Unavailable Unavailable DRAZEK, I LAZARO PA Unavailable Unavailable DRAZEK, I LAZARO PA Unavailable Unavailable DRAZEK, I LAZARO PA Unavailable Unavailable DRAZEK, I LAZARO PA Unavailable Unavailable DRAZEK, I LAZARO PA Unavailable Unavailable DRAZEK, I LAZARO PA Unavailable Unavailable DRAZEK, I LAZARO PA Unavailable Unavailable DRAZEK, I LAZARO PA Unavailable Unavailable DRAZEK, I LAZARO PA Unavailable Unavailable Re-disclosure Warning The records that you are about to access may contain information from federally-assisted alcohol or drug abuse programs. If such information is present, then the following federally mandated warning applies: This information has been disclosed to you from records protected by federal confidentiality rules (42 CFR part 2). The federal rules prohibit you from making any further disclosure of this information unless further disclosure is expressly permitted by the written consent of the person to whom it pertains or as otherwise permitted by 42 CFR part 2. A general authorization for the release of medical or other information is NOT sufficient for this purpose. The Federal rules restrict any use of the information to criminally investigate or prosecute any alcohol or drug abuse patient.The records that you are about to access may contain highly sensitive health information, the redisclosure of which is protected by Article 27-F of the [facility] Public Health law. If you continue you may have access to information: Regarding HIV / AIDS; Provided by facilities licensed or operated by the [facility] Office of Mental Health; or Provided by the [facility] Office for People With Developmental Disabilities. If such information is present, then the following [facility] mandated warning applies: This information has been disclosed to you from confidential records which are protected by state law. State law prohibits you from making any further disclosure of this information without the specific written consent of the person to whom it pertains, or as otherwise permitted by law. Any unauthorized further disclosure in violation of state law may result in a fine or skilled nursing sentence or both. A general authorization for the release of medical or other information is NOT sufficient authorization for further disc losure. Family History Family Member Name Family Member Gender Family Member Status Date o f Status Description Data Source(s) Unknown Female Problem [facility] ([facility]) Encounters Encounter Providers Location Date Indications Data Source(s ) Office Visit Attender: Jimenez RAMIREZ Physical Therapy 01:15:00 PM EDT [facility] ([facility]) Office Visit Attender: Jimenez RAMIREZ Physical Therapy 05:15:00 PM EDT [facility] ([facility]) Office Visit Attender: Jimenez RAMIREZ Physical Therapy 05:15:00 PM EDT [facility] ([facility]) Office Visit Attender: Jimenez RAMIREZ Physical Therapy 04:30:00 PM EDT [facility] ([facility]) Office Visit Attender: Flaco Martinez MD Physical Therapy 2020 03:15:00 PM EDT [facility] ([facility]) Outpatient Attender: Flaco Martinez MD Physical Therapy 04/10/2021 0 2:15:00 PM EDT [facility] ([facility]) OFFICE OUTPATIENT VISIT 15 MINUTES Attender: LAZARO RAMIREZ Phys ical Therapy 04/04/2021 03:45:00 PM EDT [facility] ([facility]) OFFICE OUTPATIENT VISIT 15 MINUTES Attender: LAZARO RAMIREZ Phys ical Therapy 01/26/2021 09:45:00 AM EST [facility] ([facility]) Office Visit Attender: LAZARO RAMIREZ Physical Therapy 2020 03:00:00 PM EST [facility] ([facility]) Office Visit Attender: LAZARO RAMIREZ Physical Therapy 2020 04:00:00 PM EST [facility] ([facility]) Outpatient Attender: LAZARO RAMIREZ Physical Therapy 12/15/2020 1 0:00:00 AM EST [facility] ([facility]) Outpatient Attender: Flaco Martinez MD Physical Therapy 10/06/2020 0 1:15:00 PM EST [facility] ([facility]) Medications Medication Brand Name Start Date Product Form Dose Route Admi nistrative Instructions Pharmacy Instructions Status Indications Reaction Description Data Source(s) 90 mcg/actuation 10/29/2021 12:00:00 AM EST HFA aerosol inha ler 18 INHALE 2 PUFFS BY MOUTH THREE TIMES A DAY INHALE 2 PUFFS BY MOUTH THREE TIMES A DAY SOLD: 10/29/2021 [facility] 250 mg 10/24/2021 12:00:00 AM EST tablet 6 TAKE 2 TABLETS BY MOUTH ON DAY 1, THEN TAKE ONE TABLET BY MOUTH DAILY ON DAYS 2-5 TAKE 2 TABLETS BY MOUTH ON DAY 1, THEN TAKE ONE TABLET BY MOUTH DAILY ON DAYS 2-5 SOLD: 10/24/2021 [facility] doxycycline hyclate 100 MG Oral Capsule DOXYCYCLINE HYCLATE 09/26/2021 12:00:00 AM EDT capsule 10 TAKE ONE CAPSULE BY MOUTH TW ICE A DAY TAKE ONE CAPSULE BY MOUTH TWICE A DAY SOLD: 09/26/2021 [facility] 250 mg 07/19/2021 12:00:00 AM EDT tablet 6 TAKE 2 TABLETS DAY 1, THEN TAKE ONE TABLET ONCE A DAY FOR DAYS 2-5 TAKE 2 TABLETS DAY 1, THEN TAKE ONE TABL ET ONCE A DAY FOR DAYS 2-5 SOLD: 07/19/2021 [facility] Acetaminophen 300 MG / Codeine Phosphate 30 MG Oral Tablet [Tylenol with Codeine] Tylenol With Codeine #3 06/22/2021 12:00:00 AM EDT ORAL active [facility] ([facility]) Acetaminophen 300 MG / Codeine Phosphate 30 MG Oral Ta blet 300-30 mg ACETAMINOPHEN WITH CODEINE 06/22/2021 12:00:00 AM EDT tablet 30 TAKE 1 TO 2 TABLETS BY MOUTH EVERY 4 TO 6 HOURS NEEDED FOR PAIN AFTER SURGERY * MAXIMUM DAILY DOSE = 8 TAKE 1 TO 2 TABLETS BY MOUTH EVERY 4 TO 6 HOURS NEEDED FOR PAIN AFTER SURGERY * MAXIMUM DAILY DOSE = 8 SOLD: 07/20/2021 [facility] 500 mg 05/16/2021 12:00:00 AM EDT tablet 3 TAKE ONE TABLET BY MOUTH EVERY DAY FOR 3 DAYS TAKE ONE TABLET BY MOUTH EVERY DAY FOR 3 DAYS SOLD: 05/16/2021 [facility] 150 mg 12/26/2020 12:00:00 AM EST tablet 2 TAKE ONE TABLET BY MOUTH ONCE NOW - MAY REPEAT IN 3 DAYS IF NOT IMPROVED TAKE ONE TABLET BY MOUTH ONCE NOW - MAY REPEAT IN 3 DAYS IF NOT IMPROVED SOLD: 12/26/2020 [facility] 2 ML Sodium Hyaluronate 10 MG/ML Prefilled Syringe [Euflexxa ] Euflexxa 12/15/2020 12:00:00 AM EST active [facility] ([facility]) 5 % 10/14/2020 12:00:00 AM EST adhesive patch,medicate d 30 APPLY 1 PATCH ON SKIN DAILY, WEAR UP TO 12 HOURS APPLY 1 PATCH ON SKIN DAILY, WEAR UP TO 12 HOURS SOLD: 10/14/2020 [facility] Cyclobenzaprine hydrochloride 5 MG Oral Tablet CYCLOBENZAPRI NE HCL 10/14/2020 12:00:00 AM EST tablet 21 TAKE ONE TABLET BY MOUTH THREE TIMES A DAY FOR MUSLE SPASMS TAKE ONE TABLET BY MOUTH THREE TIMES A DAY FOR MUSLE S PASMS SOLD: 10/14/2020 [facility] 250 mg 10/12/2020 12:00:00 AM EST tablet 6 TAKE TWO TABLETS BY MOUTH AT ONCE ON THE FIRST DAY THEN TAKE ONE DAILY THEREAFTER TAKE TWO TABLETS BY MOUTH AT ONCE ON THE FIRST DAY THEN TAKE ONE DAILY THEREAFTER SOLD: 10/12/2020 [facility] Insurance Providers Payer name Policy type / Coverage type Policy ID Covered libertarian ID Covered libertarian's relationship to jasmine Policy Jasmine Plan Information [employer] () Workers Compensation [id number] Self [id number] [employer] () Workers Compensation [id number] Self [id number] [employer] () Workers Compensation [id number] Self [id number] [employer] ([employer]) Workers Compensation [id number] Self [id number] [employer] ([employer]) Workers Compensation [id number] Self [id number] [employer] ([employer]) Workers Compensation [id number] Self [id number] [employer] ([employer]) Workers Compensation [id number] Self [id number] [employer] ([employer]) Workers Compensation [id number] Self [id number] [employer] ([employer]) Workers Compensation [id number] Self [id number] [employer] ([employer]) Workers Compensation [id number] Self [id number] [employer] () Workers Compensation [id number] Self [id number] [facility] [id number] [facility] (pr) Medigap Part B [id number] Self [id number] [facility] Medigap Part B [id number] Self [id number] [facility] Medigap Part B [id number] Self [id number] [facility] Community Plan Medigap Part B [id number] Self 1 [id number] [facility] Community Plan Medigap Part B [id number] Self [id number] [facility] Community Plan Medigap Part B [id number] Self 1 [id number] [facility] O [id number] S [id number] [facility] Community Plan Medigap Part B [id number] Self 1 [id number] [employer] B UNAVAILABLE [id number] S UNAV AILABLE [facility] Community Plan Medigap Part B [id number] Self 1 [id number] [employer] B [id number] S [id number] [facility] Community Plan Medigap Part B [id number] Self 1 [id number] GEHA-ASA [id number] SP [id number] [facility] Community Plan Medig[employer] Part B [id number] Self 1 [id number] BC BS [place] FEDERAL B [id number] S [id number] [facility] Community Plan Medigap Part B [id number] Self 1 [id number] [employer] FEDERAL EMPLOYEE PROGRAM [id number] SP [id number] [employer] COMMUNITY PLAN MCDO [id number] SP [id number] [place] DEPT OF LABOR [id number] SP [id number] [place] DEPT OF LABOR [id number] SP [id number] DEPT OF LABOR [id number] SP [id number] [facility] P [id number] S [id number] [facility] Community [facility] Part B [id number] [facility] [id number] [facility] FEDERAL EMPLOYEE PROGRAM [id number] SP [id number] Problems, Conditions, and Diagnoses No Information Surgeries/Procedures Procedure Description Date Indications Data Source(s) THERAPEUTIC PX 1/> AREAS EACH 15 MIN EXERCISES 12:00:00 AM EST [facility] ([facility] THERAPEUTIC PX 1/> AREAS EACH 15 MIN EXERCISES 12:00:00 AM EST [facility] ([facility] THERAPEUTIC PX 1/> AREAS EACH 15 MIN EXERCISES 12:00:00 AM EST [facility] ([facility] THERAPEUTIC PX 1/> AREAS EACH 15 MIN EXERCISES 12:00:00 AM EST [facility] ([facility] THERAPEUTIC PX 1/> AREAS EACH 15 MIN EXERCISES 12:00:00 AM EDT [facility] ([facility] THERAPEUTIC PX 1/> AREAS EACH 15 MIN EXERCISES 12:00:00 AM EDT [facility] ([facility] THERAPEUTIC PX 1/> AREAS EACH 15 MIN EXERCISES 12:00:00 AM EDT [facility] ([facility] THERAPEUTIC PX 1/> AREAS EACH 15 MIN EXERCISES 12:00:00 AM EDT [facility] ([facility] THERAPEUTIC PX 1/> AREAS EACH 15 MIN EXERCISES 12:00:00 AM EDT [facility] ([facility] THERAPEUTIC PX 1/> AREAS EACH 15 MIN EXERCISES 12:00:00 AM EDT [facility] ([facility] THERAPEUTIC PX 1/> AREAS EACH 15 MIN EXERCISES 12:00:00 AM EDT [facility] ([facility] THERAPEUTIC PX 1/> AREAS EACH 15 MIN EXERCISES 12:00:00 AM EDT [facility] ([facility]) THERAPEUTIC PX 1/> AREAS EACH 15 MIN EXERCISES 12:00:00 AM EDT [facility] ([facility]) THERAPEUTIC PX 1/> AREAS EACH 15 MIN EXERCISES 12:00:00 AM EDT [facility] ([facility]) APPLICATION MODALITY 1/> AREAS HOT/COLD PACKS 08/24/20 12:00:00 AM EDT [facility] ([facility]) APPL MODALITY 1/> AREAS ELEC STIMJ EA 15 MIN 12:00:00 AM EDT [facility] ([facility] THERAPEUTIC PX 1/> AREAS EACH 15 MIN EXERCISES 12:00:00 AM EDT [facility] ([facility]) THERAPEUTIC PX 1/> AREAS EACH 15 MIN EXERCISES 12:00:00 AM EDT [facility] ([facility] THERAPEUTIC PX 1/> AREAS EACH 15 MIN EXERCISES 12:00:00 AM EDT [facility] ([facility] THERAPEUTIC PX 1/> AREAS EACH 15 MIN EXERCISES 12:00:00 AM EDT [facility] ([facility] APPLICATION MODALITY 1/> AREAS HOT/COLD PACKS 08/22/20 12:00:00 AM EDT [facility] ([facility] APPL MODALITY 1/> AREAS ELEC STIMJ EA 15 MIN 12:00:00 AM EDT [facility] ([facility] APPL MODALITY 1/> AREAS ELEC STIMJ EA 15 MIN 12:00:00 AM EDT [facility] ([facility]) THERAPEUTIC PX 1/> AREAS EACH 15 MIN EXERCISES 021 12:00:00 AM EDT [facility] ([facility]) THERAPEUTIC PX 1/> AREAS EACH 15 MIN EXERCISES 12:00:00 AM EDT [facility] ([facility]) APPLICATION MODALITY 1/> AREAS HOT/COLD PACKS 08/15/20 21 12:00:00 AM EDT [facility] ([facility]) APPL MODALITY 1/> AREAS ELEC STIMJ EA 15 MIN 12:00:00 AM EDT [facility] ([facility] THERAPEUTIC PX 1/> AREAS EACH 15 MIN EXERCISES 09/14/2 021 12:00:00 AM EDT [facility] ([facility] THERAPEUTIC PX 1/> AREAS EACH 15 MIN EXERCISES 12:00:00 AM EDT [facility] ([facility] THERAPEUTIC PX 1/> AREAS EACH 15 MIN EXERCISES 021 12:00:00 AM EDT [facility] ([facility] APPL MODALITY 1/> AREAS ELEC STIMJ EA 15 MIN 1 12:00:00 AM EDT [facility] ([facility] APPLICATION MODALITY 1/> AREAS HOT/COLD PACKS 08/10/20 21 12:00:00 AM EDT [facility] ([facility] THERAPEUTIC PX 1/> AREAS EACH 15 MIN EXERCISES 021 12:00:00 AM EDT [facility] ([facility] APPLICATION MODALITY 1/> AREAS HOT/COLD PACKS 08/08/20 21 12:00:00 AM EDT [facility] ([facility] APPL MODALITY 1/> AREAS ELEC STIMJ EA 15 MIN 1 12:00:00 AM EDT [facility] ([facility] THERAPEUTIC PX 1/> AREAS EACH 15 MIN EXERCISES 021 12:00:00 AM EDT [facility] ([facility] THERAPEUTIC PX 1/> AREAS EACH 15 MIN EXERCISES 021 12:00:00 AM EDT [facility] ([facility] THERAPEUTIC PX 1/> AREAS EACH 15 MIN EXERCISES 12:00:00 AM EDT [facility] ([facility] THERAPEUTIC PX 1/> AREAS EACH 15 MIN EXERCISES 021 12:00:00 AM EDT [facility] ([facility] THERAPEUTIC PX 1/> AREAS EACH 15 MIN EXERCISES 021 12:00:00 AM EDT [facility] ([facility] THERAPEUTIC PX 1/> AREAS EACH 15 MIN EXERCISES 021 12:00:00 AM EDT [facility] ([facility] APPL MODALITY 1/> AREAS ELEC STIMJ EA 15 MIN 1 12:00:00 AM EDT [facility] ([facility] APPLICATION MODALITY 1/> AREAS HOT/COLD PACKS 08/01/20 21 12:00:00 AM EDT [facility] ([facility]) APPLICATION MODALITY 1/> AREAS HOT/COLD PACKS 07/27/20 21 12:00:00 AM EDT [facility] ([facility]) APPL MODALITY 1/> AREAS ELEC STIMJ EA 15 MIN 12:00:00 AM EDT [facility] ([facility]) THERAPEUTIC PX 1/> AREAS EACH 15 MIN EXERCISES 12:00:00 AM EDT [facility] ([facility]) THERAPEUTIC PX 1/> AREAS EACH 15 MIN EXERCISES 12:00:00 AM EDT [facility] ([facility]) APPLICATION MODALITY 1/> AREAS HOT/COLD PACKS 07/25/20 12:00:00 AM EDT [facility] ([facility]) APPL MODALITY 1/> AREAS ELEC STIMJ EA 15 MIN 12:00:00 AM EDT [facility] ([facility]) THERAPEUTIC PX 1/> AREAS EACH 15 MIN EXERCISES 12:00:00 AM EDT [facility] ([facility] THERAPEUTIC PX 1/> AREAS EACH 15 MIN EXERCISES 12:00:00 AM EDT [facility] ([facility]) Re-Eval Of PT Established Plan Of Care 20Mins Face To Face P T/Fam 07/20/2021 12:00:00 AM EDT [facility] ([facility]) THERAPEUTIC PX 1/> AREAS EACH 15 MIN EXERCISES 12:00:00 AM EDT [facility] ([facility]) APPL MODALITY 1/> AREAS ELEC STIMJ EA 15 MIN 12:00:00 AM EDT [facility] ([facility]) APPLICATION MODALITY 1/> AREAS HOT/COLD PACKS 07/20/20 21 12:00:00 AM EDT [facility] ([facility]) THERAPEUTIC PX 1/> AREAS EACH 15 MIN EXERCISES 021 12:00:00 AM EDT [facility] ([facility]) APPL MODALITY 1/> AREAS ELEC STIMJ EA 15 MIN 1 12:00:00 AM EDT [facility] ([facility]) THERAPEUTIC PX 1/> AREAS EACH 15 MIN EXERCISES 08/17/2 021 12:00:00 AM EDT [facility] ([facility] THERAPEUTIC PX 1/> AREAS EACH 15 MIN EXERCISES 021 12:00:00 AM EDT [facility] ([facility]) APPLICATION MODALITY 1/> AREAS HOT/COLD PACKS 07/18/20 21 12:00:00 AM EDT [facility] ([facility] APPLICATION MODALITY 1/> AREAS HOT/COLD PACKS 07/13/20 21 12:00:00 AM EDT [facility] ([facility]) APPL MODALITY 1/> AREAS ELEC STIMJ EA 15 MIN 1 12:00:00 AM EDT [facility] ([facility] ) THERAPEUTIC PX 1/> AREAS EACH 15 MIN EXERCISES 021 12:00:00 AM EDT [facility] ([facility] ) THERAPEUTIC PX 1/> AREAS EACH 15 MIN EXERCISES 021 12:00:00 AM EDT [facility] ([facility] ) APPL MODALITY 1/> AREAS ELEC STIMJ EA 15 MIN 1 12:00:00 AM EDT [facility] ([facility] ) THERAPEUTIC PX 1/> AREAS EACH 15 MIN EXERCISES 021 12:00:00 AM EDT [facility] ([facility]) APPLICATION MODALITY 1/> AREAS HOT/COLD PACKS 07/11/20 21 12:00:00 AM EDT [facility] ([facility] ) THERAPEUTIC PX 1/> AREAS EACH 15 MIN EXERCISES 021 12:00:00 AM EDT [facility] ([facility]) APPLICATION MODALITY 1/> AREAS HOT/COLD PACKS 07/06/20 21 12:00:00 AM EDT [facility] ([facility]) APPL MODALITY 1/> AREAS ELEC STIMJ EA 15 MIN 1 12:00:00 AM EDT [facility] ([facility]) THERAPEUTIC PX 1/> AREAS EACH 15 MIN EXERCISES 021 12:00:00 AM EDT [facility] ([facility]) THERAPEUTIC PX 1/> AREAS EACH 15 MIN EXERCISES 021 12:00:00 AM EDT [facility] ([facility]) APPLICATION MODALITY 1/> AREAS HOT/COLD PACKS 07/04/20 21 12:00:00 AM EDT [facility] ([facility] THERAPEUTIC PX 1/> AREAS EACH 15 MIN EXERCISES 12:00:00 AM EDT [facility] ([facility]) THERAPEUTIC PX 1/> AREAS EACH 15 MIN EXERCISES 12:00:00 AM EDT [facility] ([facility]) MANUAL THERAPY TQS 1/> REGIONS EACH 15 MINUTES 12:00:00 AM EDT [facility] ([facility]) THERAPEUTIC PX 1/> AREAS EACH 15 MIN EXERCISES 12:00:00 AM EDT [facility] ([facility]) APPL MODALITY 1/> AREAS ELEC STIMJ EA 15 MIN 12:00:00 AM EDT [facility] ([facility]) APPLICATION MODALITY 1/> AREAS HOT/COLD PACKS 06/30/20 21 12:00:00 AM EDT [facility] ([facility]) THERAPEUTIC PX 1/> AREAS EACH 15 MIN EXERCISES 12:00:00 AM EDT [facility] ([facility]) APPLICATION MODALITY 1/> AREAS HOT/COLD PACKS 06/28/20 21 12:00:00 AM EDT [facility] ([facility]) APPL MODALITY 1/> AREAS ELEC STIMJ EA 15 MIN 12:00:00 AM EDT [facility] ([facility]) THERAPEUTIC PX 1/> AREAS EACH 15 MIN EXERCISES 12:00:00 AM EDT [facility] ([facility]) THERAPEUTIC PX 1/> AREAS EACH 15 MIN EXERCISES 12:00:00 AM EDT [facility] ([facility]) Physical Therapy Eval - Low Complexity 06/26/2021 12:0 0:00 AM EDT [facility] ([facility]) ARTHRS KNE SURG W/MENISCECTOMY MED/LAT W/SHVG 06/22/20 21 12:00:00 AM EDT [facility] ([facility]) OFFICE OUTPATIENT VISIT 25 MINUTES 04/10/2021 12:00:00 AM EDT [facility] ([facility]) OFFICE OUTPATIENT VISIT 15 MINUTES 04/04/2021 12:00:00 AM EDT [facility] ([facility]) MRI Lower Extremity Any Joint 03/24/2021 12:00:00 AM E DT [facility] ([facility] ) OFFICE OUTPATIENT VISIT 15 MINUTES 01/26/2021 12:00:00 AM EST [facility] ([facility]) ARTHROCENTESIS ASPIR&/INJECTION MAJOR JT/BURSA 021 12:00:00 AM EST [facility] ([facility]) ARTHROCENTESIS ASPIR&/INJECTION MAJOR JT/BURSA 021 12:00:00 AM EST [facility] ([facility]) ARTHROCENTESIS ASPIR&/INJECTION MAJOR JT/BURSA 021 12:00:00 AM EST [facility] ([facility]) RADIOLOGIC EXAM KNEE COMPLETE 4/MORE VIEWS 12/15/2020 12:00:00 AM EST [facility] ([facility]) Results ID Date Data Source [id number] 10/24/2021 12:00:00 AM EST [facility] Name Value Range Interpretation Code Description Data Gloria rce(s) Supporting Document(s) SARS-CoV2 Rapid Antigen Positive [facility] This lab was ordered by [facility] and reported by [facility]. ID Date Data Source [id number] 05/25/2021 09:35:00 AM EDT [facility] Name Value Range Interpretation Code Description Data Gloria rce(s) Supporting Document(s) Covid Rapid Testing Laboratory test result [facility]) ID Date Data Source [id number] 05/25/2021 12:00:00 AM EDT [facility] Name Value Range Interpretation Code Description Data Gloria rce(s) Supporting Document(s) Covid Rapid Testing Negative [facility] This lab was ordered by [place] and re ported by [facility]. Procedure Social History Code Duration Value Status Description Data Source(s ) Smoking 08/01/2021 12:00:00 AM EDT Patient is a former smoker completed Patient is a former smoker [facility] ([facility]) Vital Signs ID Date Data Source UNK Name Value Range Interpretation Code Description Data Source(s) Body temperature 97.1 [degF] 97.1 [degF] [facility] ([facility]) Body height 63 [in_i] 63 [in_i] [facility] ([facility]) 5'3" Body weight 161.50 [lb_av] 161.50 [lb_av] JACQUELIN Stinson ([facility] ) Body mass index (BMI) [Ratio] 28.6 kg/m2 28.6 k g/m2 [facility] ([facility]) Body temperature 96.9 [degF] 96.9 [degF] [facility] ([facility])
--- OUTSIDE RECORDS SUMMARY | 2021-11-02 09:25 | CCD ---
Author Author [facility] Organization [facility] Address Unknown Phone Unavailable Care Team Providers Care Competitive Athlete Name Role Phone Fish, B Flaco BALL [...] Unavailable Chin, M Barratt PA Unavailable Unavailable Hcin, M Barratt PA Unavailable Unavailable Chin, M [...] is protected by Article 27-F of the [facility] Public Health law. If you continue you may have access to information: Regarding HIV / AIDS; Provided by facilities licensed or operated by the [facility] Office of Mental Health; or Provided by the [facility] Office for People With Developmental Disabilities. If such information is present, then the following [facility] mandated warning applies: This information has [...] law may result in a fine or nursing home sentence or both. A general authorization for the release of medical or other information is NOT sufficient authorization for further disc losure. Family History Family Member Name Family Member Gender Family Member Status Date o f Status Description Data Source(s) Unknown Female Problem [facility] ([facility]) Encounters Encounter Providers Location Date Indications Data Source(s ) Office Visit Attender: Jimenez RAMIREZ Physical Therapy 01:15:00 PM EDT [facility] ([facility]) Office Visit Attender: Jimenez RAMIREZ Physical Therapy 05:15:00 PM EDT [facility] ([facility]) Office Visit Attender: Jimenez RAMIREZ Physical Therapy 05:15:00 PM EDT [facility] ([facility]) Office Visit Attender: Jimenez RAMIREZ Physical Therapy 04:30:00 PM EDT [facility] ([facility]) Office Visit Attender: Flaco Martinez MD Physical Therapy 2020 03:15:00 PM EDT [facility] ([facility]) Outpatient Attender: Flaco Martinez MD Physical Therapy 04/10/2021 0 2:15:00 PM EDT [facility] ([facility]) OFFICE OUTPATIENT VISIT 15 MINUTES Attender: LAZARO RAMIREZ Phys ical Therapy 04/04/2021 03:45:00 PM EDT [facility] ([facility]) OFFICE OUTPATIENT VISIT 15 MINUTES Attender: LAZARO RAMIREZ Phys ical Therapy 01/26/2021 09:45:00 AM EST [facility] ([facility]) Office Visit Attender: LAZARO RAMIREZ Physical Therapy 2020 03:00:00 PM EST [facility] ([facility]) Office Visit Attender: LAZARO RAMIREZ Physical Therapy 2020 04:00:00 PM EST [facility] ([facility]) Outpatient Attender: LAZARO RAMIREZ Physical Therapy 12/15/2020 1 0:00:00 AM EST [facility] ([facility]) Outpatient Attender: Flaco Martinez MD Physical Therapy 10/06/2020 0 1:15:00 PM EST [facility] ([facility]) Medications Medication Brand [...] 06/22/2021 12:00:00 AM EDT ORAL active [facility] ([facility]) Acetaminophen 300 MG [...] type / Coverage type Policy ID Covered republican ID Covered republican's relationship to jasmine Policy Jasmine Plan Information [employer] () Workers Compensation [id number] Self [id number] [employer] () Workers Compensation [id number] Self [id number] [employer] () Workers Compensation [id number] Self [id number] [employer] (WC) Workers Compensation [id number] Self [id number] [employer] (WC) Workers Compensation [id number] Self [id number] [employer] (WC) Workers Compensation [id number] Self [id number] [employer] (WC) Workers Compensation [id number] Self [id number] [employer] (WC) Workers Compensation [id number] Self [id number] [employer] (WC) Workers Compensation [id number] Self [id number] [employer] (WC) Workers Compensation [id number] Self [id number] [employer] () Workers Compensation [id number] Self [id number] [facility] [id number] [facility] (pr) Medigap Part B [id number] Self [id number] [facility] Medigap Part B [id number] Self 1 [id number] [facility] Medigap Part B [id number] Self [id number] [facility] Community Plan Medigap Part B [id number] Self 1 [id number] [facility] Community Plan Medigap Part B [id number] Self [id number] [facility] Community Plan Medigap Part B [id number] Self 1 [id number] [facility] O [id number] S [id number] [facility] Community Plan Medigap Part B [id number] Self 1 [id number] [employer] B UNAVAILABLE [id number] S UNAV AILABLE [facility] Community Plan Medigap Part B [id number] Self 1 [id number] [employer] B [id number] S [id number] [facility] Community Plan Medigap Part B [id number] Self 1 [id number] GEHA-ASA [id number] SP [id number] [facility] Community Plan Medigap Part B [id number] Self 1 [id number] BC BS [place] [employer]ATN FEDERAL B [id number] S [id number] [facility] Community Plan Medigap Part B [id number] Self 1 [id number] [employer]AL EMPLOYEE PROGRAM [id number] SP [id number] [employer] COMMUNITY PLAN MCDO [id number] SP [id number] [place] DEPT OF LABOR CLM#[id number] SP CLM#[id number] [place] DEPT OF LABOR [id number] SP [id number] DEPT OF LABOR [id number] SP [id number] [facility] P [id number] S [id number] [facility] Community [facility] Part B [id number] [facility] [id number] [facility] FEDERAL EMPLOYEE PROGRAM [id number] SP [id number] Problems, Conditions, and Diagnoses No Information Surgeries/Procedures Procedure Description Date Indications Data Source(s) THERAPEUTIC PX 1/> AREAS EACH 15 MIN EXERCISES 12:00:00 AM EST [facility] ([facility] ) THERAPEUTIC PX 1/> AREAS EACH 15 MIN EXERCISES 12:00:00 AM EST [facility] ([facility] ) THERAPEUTIC PX 1/> AREAS EACH 15 MIN EXERCISES 12:00:00 AM EST [facility] ([facility] ) THERAPEUTIC PX 1/> AREAS EACH 15 MIN EXERCISES 12:00:00 AM EST [facility] ([facility] ) THERAPEUTIC PX 1/> AREAS EACH 15 MIN EXERCISES 12:00:00 AM EDT [facility] ([facility] ) THERAPEUTIC PX 1/> AREAS EACH 15 MIN EXERCISES 12:00:00 AM EDT [facility] ([facility] ) THERAPEUTIC PX 1/> AREAS EACH 15 MIN EXERCISES 12:00:00 AM EDT [facility] ([facility] ) THERAPEUTIC PX 1/> AREAS EACH 15 MIN EXERCISES 12:00:00 AM EDT [facility] ([facility] ) THERAPEUTIC PX 1/> AREAS EACH 15 MIN EXERCISES 12:00:00 AM EDT [facility] ([facility] ) THERAPEUTIC PX 1/> AREAS EACH 15 MIN EXERCISES 12:00:00 AM EDT [facility] ([facility] ) THERAPEUTIC PX 1/> AREAS EACH 15 MIN EXERCISES 12:00:00 AM EDT [facility] ([facility] ) THERAPEUTIC PX 1/> AREAS EACH 15 MIN EXERCISES 12:00:00 AM EDT [facility] ([facility]) THERAPEUTIC PX 1/> AREAS EACH 15 MIN EXERCISES 12:00:00 AM EDT [facility] ([facility]) THERAPEUTIC PX 1/> AREAS EACH 15 MIN EXERCISES 12:00:00 AM EDT [facility] ([facility]) APPLICATION MODALITY 1/> AREAS HOT/COLD PACKS 08/24/20 12:00:00 AM EDT [facility] ([facility]) APPL MODALITY 1/> AREAS ELEC STIMJ EA 15 MIN 12:00:00 AM EDT [facility] ([facility] ) THERAPEUTIC PX 1/> AREAS EACH 15 MIN EXERCISES 12:00:00 AM EDT [facility] ([facility]) THERAPEUTIC PX 1/> AREAS EACH 15 MIN EXERCISES 12:00:00 AM EDT [facility] ([facility] ) THERAPEUTIC PX 1/> AREAS EACH 15 MIN EXERCISES 12:00:00 AM EDT [facility] ([facility] ) THERAPEUTIC PX 1/> AREAS EACH 15 MIN EXERCISES 12:00:00 AM EDT [facility] ([facility] ) APPLICATION MODALITY 1/> AREAS HOT/COLD PACKS 08/22/20 12:00:00 AM EDT [facility] ([facility] ) APPL MODALITY 1/> AREAS ELEC STIMJ EA 15 MIN 12:00:00 AM EDT [facility] ([facility] ) APPL MODALITY 1/> AREAS ELEC STIMJ EA 15 MIN 12:00:00 AM EDT [facility] ([facility]) THERAPEUTIC PX 1/> AREAS EACH 15 MIN EXERCISES 021 12:00:00 AM EDT [facility] ([facility]) THERAPEUTIC PX 1/> AREAS EACH 15 MIN EXERCISES 12:00:00 AM EDT [facility] ([facility]) APPLICATION MODALITY 1/> AREAS HOT/COLD PACKS 08/15/20 21 12:00:00 AM EDT [facility] ([facility]) APPL MODALITY 1/> AREAS ELEC STIMJ EA 15 MIN 12:00:00 AM EDT [facility] ([facility] ) THERAPEUTIC PX 1/> AREAS EACH 15 MIN EXERCISES 09/14/2 021 12:00:00 AM EDT [facility] ([facility] ) THERAPEUTIC PX 1/> AREAS EACH 15 MIN EXERCISES 12:00:00 AM EDT [facility] ([facility] ) THERAPEUTIC PX 1/> AREAS EACH 15 MIN EXERCISES 021 12:00:00 AM EDT [facility] ([facility] ) APPL MODALITY 1/> AREAS ELEC STIMJ EA 15 MIN 1 12:00:00 AM EDT [facility] ([facility] ) APPLICATION MODALITY 1/> AREAS HOT/COLD PACKS 08/10/20 21 12:00:00 AM EDT [facility] ([facility] ) THERAPEUTIC PX 1/> AREAS EACH 15 MIN EXERCISES 021 12:00:00 AM EDT [facility] ([facility] ) APPLICATION MODALITY 1/> AREAS HOT/COLD PACKS 08/08/20 21 12:00:00 AM EDT [facility] ([facility] ) APPL MODALITY 1/> AREAS ELEC STIMJ EA 15 MIN 1 12:00:00 AM EDT [facility] ([facility] ) THERAPEUTIC PX 1/> AREAS EACH 15 MIN EXERCISES 021 12:00:00 AM EDT [facility] ([facility] ) THERAPEUTIC PX 1/> AREAS EACH 15 MIN EXERCISES 021 12:00:00 AM EDT [facility] ([facility] ) THERAPEUTIC PX 1/> AREAS EACH 15 MIN EXERCISES 12:00:00 AM EDT [facility] ([facility] ) THERAPEUTIC PX 1/> AREAS EACH 15 MIN EXERCISES 021 12:00:00 AM EDT [facility] ([facility] ) THERAPEUTIC PX 1/> AREAS EACH 15 MIN EXERCISES 021 12:00:00 AM EDT [facility] ([facility] ) THERAPEUTIC PX 1/> AREAS EACH 15 MIN EXERCISES 021 12:00:00 AM EDT [facility] ([facility] ) APPL MODALITY 1/> AREAS ELEC STIMJ EA 15 MIN 1 12:00:00 AM EDT [facility] ([facility] ) APPLICATION MODALITY 1/> AREAS HOT/COLD PACKS 08/01/20 21 12:00:00 AM EDT [facility] ([facility]) APPLICATION MODALITY 1/> AREAS HOT/COLD PACKS 07/27/20 21 12:00:00 AM EDT [facility] ([facility]) APPL MODALITY 1/> AREAS ELEC STIMJ EA 15 MIN 12:00:00 AM EDT [facility] ([facility]) THERAPEUTIC PX 1/> AREAS EACH 15 MIN EXERCISES 12:00:00 AM EDT [facility] ([facility]) THERAPEUTIC PX 1/> AREAS EACH 15 MIN EXERCISES 12:00:00 AM EDT [facility] ([facility]) APPLICATION MODALITY 1/> AREAS HOT/COLD PACKS 07/25/20 12:00:00 AM EDT [facility] ([facility]) APPL MODALITY 1/> AREAS ELEC STIMJ EA 15 MIN 12:00:00 AM EDT [facility] ([facility]) THERAPEUTIC PX 1/> AREAS EACH 15 MIN EXERCISES 12:00:00 AM EDT [facility] ([facility] ) THERAPEUTIC PX 1/> AREAS EACH 15 MIN EXERCISES 12:00:00 AM EDT [facility] ([facility]) Re-Eval Of PT Established Plan Of Care 20Mins Face To Face P T/Fam 07/20/2021 12:00:00 AM EDT [facility] ([facility]) THERAPEUTIC PX 1/> AREAS EACH 15 MIN EXERCISES 12:00:00 AM EDT [facility] ([facility]) APPL MODALITY 1/> AREAS ELEC STIMJ EA 15 MIN 12:00:00 AM EDT [facility] ([facility]) APPLICATION MODALITY 1/> AREAS HOT/COLD PACKS 07/20/20 21 12:00:00 AM EDT [facility] ([facility]) THERAPEUTIC PX 1/> AREAS EACH 15 MIN EXERCISES 021 12:00:00 AM EDT [facility] ([facility]) APPL MODALITY 1/> AREAS ELEC STIMJ EA 15 MIN 1 12:00:00 AM EDT [facility] ([facility]) THERAPEUTIC PX 1/> AREAS EACH 15 MIN EXERCISES 08/17/2 021 12:00:00 AM EDT [facility] ([facility] ) THERAPEUTIC PX 1/> AREAS EACH 15 MIN EXERCISES 021 12:00:00 AM EDT [facility] ([facility]) APPLICATION MODALITY 1/> AREAS HOT/COLD PACKS 07/18/20 21 12:00:00 AM EDT [facility] ([facility] ) APPLICATION MODALITY 1/> AREAS HOT/COLD PACKS 07/13/20 21 12:00:00 AM EDT [facility] ([facility]) APPL MODALITY 1/> AREAS ELEC STIMJ EA 15 MIN 1 12:00:00 AM EDT [facility] ([facility] ) THERAPEUTIC PX 1/> AREAS EACH 15 MIN EXERCISES 021 12:00:00 AM EDT [facility] ([facility] ) THERAPEUTIC PX 1/> AREAS EACH 15 MIN EXERCISES 021 12:00:00 AM EDT [facility] ([facility] ) APPL MODALITY 1/> AREAS ELEC STIMJ EA 15 MIN 1 12:00:00 AM EDT [facility] ([facility] ) THERAPEUTIC PX 1/> AREAS EACH 15 MIN EXERCISES 021 12:00:00 AM EDT [facility] ([facility]) APPLICATION MODALITY 1/> AREAS HOT/COLD PACKS 07/11/20 21 12:00:00 AM EDT [facility] ([facility] ) THERAPEUTIC PX 1/> AREAS EACH 15 MIN EXERCISES 021 12:00:00 AM EDT [facility] ([facility]) APPLICATION MODALITY 1/> AREAS HOT/COLD PACKS 07/06/20 21 12:00:00 AM EDT [facility] ([facility]) APPL MODALITY 1/> AREAS ELEC STIMJ EA 15 MIN 1 12:00:00 AM EDT [facility] ([facility]) THERAPEUTIC PX 1/> AREAS EACH 15 MIN EXERCISES 021 12:00:00 AM EDT [facility] ([facility]) THERAPEUTIC PX 1/> AREAS EACH 15 MIN EXERCISES 021 12:00:00 AM EDT [facility] ([facility]) APPLICATION MODALITY 1/> AREAS HOT/COLD PACKS 07/04/20 21 12:00:00 AM EDT [facility] ([facility] ) THERAPEUTIC PX 1/> AREAS EACH 15 MIN EXERCISES 12:00:00 AM EDT [facility] ([facility]) THERAPEUTIC PX 1/> AREAS EACH 15 MIN EXERCISES 12:00:00 AM EDT [facility] ([facility]) MANUAL THERAPY TQS 1/> REGIONS EACH 15 MINUTES 12:00:00 AM EDT [facility] ([facility]) THERAPEUTIC PX 1/> AREAS EACH 15 MIN EXERCISES 12:00:00 AM EDT [facility] ([facility]) APPL MODALITY 1/> AREAS ELEC STIMJ EA 15 MIN 12:00:00 AM EDT [facility] ([facility]) APPLICATION MODALITY 1/> AREAS HOT/COLD PACKS 06/30/20 21 12:00:00 AM EDT [facility] ([facility]) THERAPEUTIC PX 1/> AREAS EACH 15 MIN EXERCISES 12:00:00 AM EDT [facility] ([facility]) APPLICATION MODALITY 1/> AREAS HOT/COLD PACKS 06/28/20 21 12:00:00 AM EDT [facility] ([facility]) APPL MODALITY 1/> AREAS ELEC STIMJ EA 15 MIN 12:00:00 AM EDT [facility] ([facility]) THERAPEUTIC PX 1/> AREAS EACH 15 MIN EXERCISES 12:00:00 AM EDT [facility] ([facility]) THERAPEUTIC PX 1/> AREAS EACH 15 MIN EXERCISES 12:00:00 AM EDT [facility] ([facility]) Physical Therapy Eval - Low Complexity 06/26/2021 12:0 0:00 AM EDT [facility] ([facility]) ARTHRS KNE SURG W/MENISCECTOMY MED/LAT W/SHVG 06/22/20 21 12:00:00 AM EDT [facility] ([facility]) OFFICE OUTPATIENT VISIT 25 MINUTES 04/10/2021 12:00:00 AM EDT [facility] ([facility]) OFFICE OUTPATIENT VISIT 15 MINUTES 04/04/2021 12:00:00 AM EDT [facility] ([facility]) MRI Lower Extremity Any Joint 03/24/2021 12:00:00 AM E DT [facility] ([facility] OFFICE OUTPATIENT VISIT 15 MINUTES 01/26/2021 12:00:00 AM EST [facility] ([facility]) ARTHROCENTESIS ASPIR&/INJECTION MAJOR JT/BURSA 021 12:00:00 AM EST [facility] ([facility]) ARTHROCENTESIS ASPIR&/INJECTION MAJOR JT/BURSA 021 12:00:00 AM EST [facility] ([facility]) ARTHROCENTESIS ASPIR&/INJECTION MAJOR JT/BURSA 021 12:00:00 AM EST [facility] ([facility]) RADIOLOGIC EXAM KNEE COMPLETE 4/MORE VIEWS 12/15/2020 12:00:00 AM EST [facility] ([facility]) Results ID Date Data Source [id number] 10/24/2021 12:00:00 AM EST [facility] Name Value Range Interpretation Code Description Data Gloria rce(s) Supporting Document(s) SARS-CoV2 Rapid Antigen Positive [facility] This lab was ordered by [facility] and reported by [facility]. ID Date Data Source [id number] 05/25/2021 09:35:00 AM EDT [facility] Name Value Range Interpretation Code Description Data Gloria rce(s) Supporting Document(s) Covid Rapid Testing Laboratory test result [facility]) ID Date Data Source [id number] 05/25/2021 12:00:00 AM EDT [facility] Name Value Range Interpretation Code Description Data Gloria rce(s) Supporting Document(s) Covid Rapid Testing Negative [facility] This lab was ordered by [place] and re ported by [facility]. Procedure Social History Code Duration Value Status Description Data Source(s ) Smoking 08/01/2021 12:00:00 AM EDT Patient is a former smoker completed Patient is a former smoker [facility] ([facility]) Vital Signs ID Date Data Source UNK Name Value Range Interpretation Code Description Data Source(s) Body temperature 97.1 [degF] 97.1 [degF] [facility] ([facility]) Body height 63 [in_i] 63 [in_i] [facility] ([facility]) 5'3" Body weight 161.50 [lb_av] 161.50 [lb_av] JACQUELIN Stinson ([facility] ) Body mass index (BMI) [Ratio] 28.6 kg/m2 28.6 k g/m2 [facility] ([facility]) Body temperature 96.9 [degF] 96.9 [degF] [facility] ([facility])
[2021-11-02 10:07] LABS: BASO % 0.2 % (0.0-1.0); EOS % 0.1 % (0.0-3.0); HEMATOCRIT 38.6 % (36.0-47.0); LYMPH # 1.2 10^3/uL (1.5-5.0); LYMPH % 12.2 % (24.0-44.0); MEAN CORPUSCULAR HEMOGLOBIN 28.8 pg (27.0-33.0); MEAN CORPUSCULAR HGB CONC 33.7 g/dl (32.0-36.5); MEAN CORPUSCULAR VOLUME 85.6 fl (80.0-96.0); MONO # 1.4 10^3/uL (0.0-0.8); MONO % 14.7 % (2.0-8.0); NEUTROPHILS % 71.7 % (36.0-66.0); PLATELET COUNT, AUTOMATED 252 10^3/uL (150-450); RED BLOOD COUNT 4.51 10^6/uL (4.00-5.40); WHITE BLOOD COUNT 9.7 10^3/uL (4.0-10.0)
[2021-11-02 10:18] LABS: PROTHROMBIN TIME 13.6 SECONDS (12.7-14.5)
[2021-11-02 10:19] LABS: PARTIAL THROMBOPLASTIN TIME 32.7 SECONDS (25.9-37.0)
[2021-11-02 10:21] LABS: D-DIMER QUANT 1329.57 ng/ml (<500)
[2021-11-02 11:43] LABS: HCG, SERUM QUALITATIVE NEGATIVE (NEGATIVE)
[2021-11-02 11:51] LABS: ALBUMIN 3.2 GM/DL (3.2-5.2); ALT/SGPT 29 U/L (12-78); BILIRUBIN,TOTAL 0.5 MG/DL (0.2-1.0); BLOOD UREA NITROGEN 13 MG/DL (7-18); C REACTIVE PROTEIN QUANTITATIV 7.41 MG/DL (0.00-0.30); CALCIUM LEVEL 8.2 MG/DL (8.5-10.1); CARBON DIOXIDE LEVEL 25 MEQ/L (21-32); CHLORIDE LEVEL 102 MEQ/L (98-107); CREATININE FOR GFR 0.58 MG/DL (0.55-1.30); FERRITIN 348 NG/ML (8-252); GLOMERULAR FILTRATION RATE > 60.0 (>58); GLUCOSE, FASTING 80 MG/DL (70-100); LDH LACTATE DEHYDROGENASE 418 U/L (84-246); MAGNESIUM LEVEL 2.3 MG/DL (1.8-2.4); POTASSIUM SERUM 3.9 MEQ/L (3.5-5.1); SODIUM LEVEL 137 MEQ/L (136-145); TOTAL PROTEIN 6.9 GM/DL (6.4-8.2)
--- NOTE | 2021-11-02 12:47 | REP ---
INDICATION: Coronavirus workup. COMPARISON: 10/07/2021. TECHNIQUE: Single portable AP view of the chest was performed. The study is performed at 11:58 a.m. and is submitted for interpretation at 12:40 p.m.. FINDINGS: Diffuse peripheral bilateral infiltrates are present. The heart is normal in size. The mediastinal silhouette is unremarkable. The visualized osseous structures appear intact. IMPRESSION: Diffuse bilateral infiltrates. <Electronically signed by Cesar Amato > 11/02/21 [id number]
[2021-11-02] MEDS ORDERED: ISOVUE-370 76% 100ML VIAL As Ordered ONE (12:48)
--- NOTE | 2021-11-02 13:20 | REP ---
INDICATION: chest pain, positive covid. COMPARISON: Radiograph today. TECHNIQUE: CT angiogram chest performed following the intravenous administration of 100 cc of Isovue 370. Sagittal and coronal reconstruction images are performed. FINDINGS: Lungs: There are diffuse bilateral infiltrates. Mediastinum: No adenopathy. Pulmonary arteries: No evidence of pulmonary embolism. Althea: No adenopathy. Axilla: No adenopathy. Pleura: There are tiny bilateral pleural effusions. Heart: Not enlarged. Thoracic aorta: No aneurysm or dissection. Upper abdominal structures: Unremarkable. Visualized osseous structures: Unremarkable. IMPRESSION: No CT evidence of pulmonary embolism. Diffuse bilateral infiltrates. <Electronically signed by Cesar Amato > 11/02/21 [id number]
[2021-11-02] MEDS ORDERED: HOME MED LIST COMPLETE! XX SCH (14:55)
[2021-11-02] MEDS ORDERED: dexameTHASONE 20MG/5ML VIAL (J1100 PER 1MG) IV ONE (14:55)
[2021-11-02] MEDS ORDERED: ACETAMINOPHEN TAB 650MG DOSE (2X325MG) PO ONE (14:55)
[2021-11-02] MEDS ORDERED: LevoFLOXacin IV 750 MG in IV 1 EA IV ONE (15:40)
--- OUTSIDE RECORDS SUMMARY | 2021-11-02 16:40 | CCD ---
Author Author [facility] Organization [facility] Address Unknown Phone Unavailable Care Team Providers Care Disposal Man Name Role Phone Fish, B Flaco BALL [...] Unavailable Fish, B Flaco BALL Unavailable Unavailable Chin, M Barratt PA Unavailable [...] is protected by Article 27-F of the [facility] Public Health law. If you continue you may have access to information: Regarding HIV / AIDS; Provided by facilities licensed or operated by the [facility] Office of Mental Health; or Provided by the [facility] Office for People With Developmental Disabilities. If such information is present, then the following [facility] mandated warning applies: This information has [...] law may result in a fine or mcfp sentence or both. A general authorization for the release of medical or other information is NOT sufficient authorization for further disc losure. Family History Family Member Name Family Member Gender Family Member Status Date o f Status Description Data Source(s) Unknown Female Problem [facility] ([facility]) Encounters Encounter Providers Location Date Indications Data Source(s ) Office Visit Attender: Jimenez RAMIREZ Physical Therapy 01:15:00 PM EDT [facility] ([facility]) Office Visit Attender: Jimenez RAMIREZ Physical Therapy 05:15:00 PM EDT [facility] ([facility]) Office Visit Attender: Jimenez RAMIREZ Physical Therapy 05:15:00 PM EDT [facility] ([facility]) Office Visit Attender: Jimenez RAMIREZ Physical Therapy 04:30:00 PM EDT [facility] ([facility]) Office Visit Attender: Flaco Martinez MD Physical Therapy 2020 03:15:00 PM EDT [facility] ([facility]) Outpatient Attender: Flaco Martinez MD Physical Therapy 04/10/2021 0 2:15:00 PM EDT [facility] ([facility]) OFFICE OUTPATIENT VISIT 15 MINUTES Attender: LAZARO RAMIREZ Phys ical Therapy 04/04/2021 03:45:00 PM EDT [facility] ([facility]) OFFICE OUTPATIENT VISIT 15 MINUTES Attender: LAZARO RAMIREZ Phys ical Therapy 01/26/2021 09:45:00 AM EST [facility] ([facility]) Office Visit Attender: LAZARO RAMIREZ Physical Therapy 2020 03:00:00 PM EST [facility] ([facility]) Office Visit Attender: LAZARO RAMIREZ Physical Therapy 2020 04:00:00 PM EST [facility] ([facility] ) Outpatient Attender: LAZARO RAMIREZ Physical Therapy 12/15/2020 1 0:00:00 AM EST [facility] ([facility] ) Outpatient Attender: Flaco Martinez MD Physical Therapy 10/06/2020 0 1:15:00 PM EST [facility] ([facility] ) Medications Medication Brand Name Start Date Product [...] 06/22/2021 12:00:00 AM EDT ORAL active [facility] ([facility] ) Acetaminophen 300 MG / Codeine Phosphate 30 [...] Plan Information [employer] () Workers Compensation [id number] Self [id number] [employer] () Workers Compensation [id number] Self [id number] [employer] () Workers Compensation [id number] Self [id number] [employer] (WC) Workers Compensation [id number] Self [id number] [employer] (WC) Workers Compensation [id number] Self [id number] [employer] (WC) Workers Compensation [id number] Self 6 [id number] [employer] (WC) Workers Compensation [id number] Self 6 [id number] [employer] (WC) Workers Compensation [id number] Self 6 [id number] [employer] (WC) Workers Compensation [id number] Self [id number] [employer] (WC) Workers Compensation [id number] Self [id number] [employer] ([employer]) Workers Compensation [id number] Self [id number] [facility] [id number] [employer] (pr) Medigap Part B [id number] Self [id number] [facility] Medigap Part B [id number] Self 1 [id number] [facility] Medigap Part B [id number] Self [id number] [facility] Plan Medigap Part B [id number] Self 1 [id number] [facility] Plan Medigap Part B [id number] Self [id number] [facility] Plan Medigap Part B [id number] Self 1 [id number] [facility] O [id number] S [id number] [facility] Plan Medigap Part B [id number] Self 1 [id number] [employer] BCBS B UNAVAILABLE [id number] S UNAV AILABLE [facility] Plan Medigap Part B [id number] Self 1 [id number] [employer] B [id number] S [id number] [facility] Plan Medigap Part B [id number] Self 1 [id number] GEHA-ASA [id number] SP [id number] [facility] Plan Medigap Part B [id number] Self 1 [id number] BC BS [place] [employer] FEDERAL B [id number] S [id number] [facility] Plan Medigap Part B [id number] Self 1 [id number] [employer] FEDERAL EMPLOYEE PROGRAM [id number] SP [id number] [employer] COMMUNITY PLAN MCDO [id number] SP [id number] [place] DEPT OF LABOR WC CLM#[id number] SP CLM#[id number] [place] DEPT OF LABOR [id number] SP [id number] DEPT OF LABOR [id number] SP [id number] [facility] P [id number] S [id number] [facility] Part B [id number] [facility] [id number] [facility] FEDERAL EMPLOYEE PROGRAM [id number] SP [id number] Problems, Conditions, and Diagnoses No Information Surgeries/Procedures Procedure Description Date Indications Data Source(s) THERAPEUTIC PX 1/> AREAS EACH 15 MIN EXERCISES 12:00:00 AM EST [facility] ([facility] ) THERAPEUTIC PX 1/> AREAS EACH 15 MIN EXERCISES 12:00:00 AM EST [facility] ([facility] ) THERAPEUTIC PX 1/> AREAS EACH 15 MIN EXERCISES 12:00:00 AM EST [facility] ([facility] ) THERAPEUTIC PX 1/> AREAS EACH 15 MIN EXERCISES 12:00:00 AM EST [facility] ([facility] ) THERAPEUTIC PX 1/> AREAS EACH 15 MIN EXERCISES 12:00:00 AM EDT [facility] ([facility] ) THERAPEUTIC PX 1/> AREAS EACH 15 MIN EXERCISES 12:00:00 AM EDT [facility] ([facility] ) THERAPEUTIC PX 1/> AREAS EACH 15 MIN EXERCISES 12:00:00 AM EDT [facility] ([facility] ) THERAPEUTIC PX 1/> AREAS EACH 15 MIN EXERCISES 12:00:00 AM EDT [facility] ([facility] ) THERAPEUTIC PX 1/> AREAS EACH 15 MIN EXERCISES 12:00:00 AM EDT [facility] ([facility] ) THERAPEUTIC PX 1/> AREAS EACH 15 MIN EXERCISES 12:00:00 AM EDT [facility] ([facility] ) THERAPEUTIC PX 1/> AREAS EACH 15 MIN EXERCISES 12:00:00 AM EDT [facility] ([facility] ) THERAPEUTIC PX 1/> AREAS EACH 15 MIN EXERCISES 12:00:00 AM EDT [facility] ([facility]) THERAPEUTIC PX 1/> AREAS EACH 15 MIN EXERCISES 12:00:00 AM EDT [facility] ([facility] ) THERAPEUTIC PX 1/> AREAS EACH 15 MIN EXERCISES 12:00:00 AM EDT [facility] ([facility] ) APPLICATION MODALITY 1/> AREAS HOT/COLD PACKS 08/24/20 12:00:00 AM EDT [facility] ([facility] ) APPL MODALITY 1/> AREAS ELEC STIMJ EA 15 MIN 12:00:00 AM EDT [facility] ([facility] ) THERAPEUTIC PX 1/> AREAS EACH 15 MIN EXERCISES 12:00:00 AM EDT [facility] ([facility] ) THERAPEUTIC PX 1/> AREAS EACH 15 MIN EXERCISES 12:00:00 AM EDT [facility] ([facility] ) THERAPEUTIC PX 1/> AREAS EACH 15 MIN EXERCISES 12:00:00 AM EDT [facility] ([facility] ) THERAPEUTIC PX 1/> AREAS EACH 15 MIN EXERCISES 12:00:00 AM EDT [facility] ([facility] ) APPLICATION MODALITY 1/> AREAS HOT/COLD PACKS 08/22/20 12:00:00 AM EDT [facility] ([facility] ) APPL MODALITY 1/> AREAS ELEC STIMJ EA 15 MIN 12:00:00 AM EDT [facility] ([facility] ) APPL MODALITY 1/> AREAS ELEC STIMJ EA 15 MIN 12:00:00 AM EDT [facility] ([facility]) THERAPEUTIC PX 1/> AREAS EACH 15 MIN EXERCISES 12:00:00 AM EDT [facility] ([facility]) THERAPEUTIC PX 1/> AREAS EACH 15 MIN EXERCISES 12:00:00 AM EDT [facility] ([facility]) APPLICATION MODALITY 1/> AREAS HOT/COLD PACKS 08/15/20 12:00:00 AM EDT [facility] ([facility] ) APPL MODALITY 1/> AREAS ELEC STIMJ EA 15 MIN 12:00:00 AM EDT [facility] ([facility] ) THERAPEUTIC PX 1/> AREAS EACH 15 MIN EXERCISES 12:00:00 AM EDT [facility] ([facility] ) THERAPEUTIC PX 1/> AREAS EACH 15 MIN EXERCISES 12:00:00 AM EDT [facility] ([facility] ) THERAPEUTIC PX 1/> AREAS EACH 15 MIN EXERCISES 021 12:00:00 AM EDT [facility] ([facility] ) APPL MODALITY 1/> AREAS ELEC STIMJ EA 15 MIN 1 12:00:00 AM EDT [facility] ([facility] ) APPLICATION MODALITY 1/> AREAS HOT/COLD PACKS 08/10/20 21 12:00:00 AM EDT [facility] ([facility] ) THERAPEUTIC PX 1/> AREAS EACH 15 MIN EXERCISES 12:00:00 AM EDT [facility] ([facility] ) APPLICATION MODALITY 1/> AREAS HOT/COLD PACKS 08/08/20 21 12:00:00 AM EDT [facility] ([facility] ) APPL MODALITY 1/> AREAS ELEC STIMJ EA 15 MIN 1 12:00:00 AM EDT [facility] ([facility] ) THERAPEUTIC PX 1/> AREAS EACH 15 MIN EXERCISES 021 12:00:00 AM EDT [facility] ([facility] ) THERAPEUTIC PX 1/> AREAS EACH 15 MIN EXERCISES 021 12:00:00 AM EDT [facility] ([facility] ) THERAPEUTIC PX 1/> AREAS EACH 15 MIN EXERCISES 12:00:00 AM EDT [facility] ([facility] ) THERAPEUTIC PX 1/> AREAS EACH 15 MIN EXERCISES 021 12:00:00 AM EDT [facility] ([facility] ) THERAPEUTIC PX 1/> AREAS EACH 15 MIN EXERCISES 021 12:00:00 AM EDT [facility] ([facility] ) THERAPEUTIC PX 1/> AREAS EACH 15 MIN EXERCISES 021 12:00:00 AM EDT [facility] ([facility] ) APPL MODALITY 1/> AREAS ELEC STIMJ EA 15 MIN 1 12:00:00 AM EDT [facility] ([facility] ) APPLICATION MODALITY 1/> AREAS HOT/COLD PACKS 08/01/20 21 12:00:00 AM EDT [facility] ([facility]) APPLICATION MODALITY 1/> AREAS HOT/COLD PACKS 07/27/20 21 12:00:00 AM EDT [facility] ([facility]) APPL MODALITY 1/> AREAS ELEC STIMJ EA 15 MIN 1 12:00:00 AM EDT [facility] ([facility]) THERAPEUTIC PX 1/> AREAS EACH 15 MIN EXERCISES 021 12:00:00 AM EDT [facility] ([facility]) THERAPEUTIC PX 1/> AREAS EACH 15 MIN EXERCISES 12:00:00 AM EDT [facility] ([facility]) APPLICATION MODALITY 1/> AREAS HOT/COLD PACKS 07/25/20 21 12:00:00 AM EDT [facility] ([facility]) APPL MODALITY 1/> AREAS ELEC STIMJ EA 15 MIN 12:00:00 AM EDT [facility] ([facility]) THERAPEUTIC PX 1/> AREAS EACH 15 MIN EXERCISES 12:00:00 AM EDT [facility] ([facility]) THERAPEUTIC PX 1/> AREAS EACH 15 MIN EXERCISES 12:00:00 AM EDT [facility] ([facility]) Re-Eval Of PT Established Plan Of Care 20Mins Face To Face P T/Fam 07/20/2021 12:00:00 AM EDT [facility] ([facility]) THERAPEUTIC PX 1/> AREAS EACH 15 MIN EXERCISES 12:00:00 AM EDT [facility] ([facility]) APPL MODALITY 1/> AREAS ELEC STIMJ EA 15 MIN 1 12:00:00 AM EDT [facility] ([facility]) APPLICATION MODALITY 1/> AREAS HOT/COLD PACKS 07/20/20 21 12:00:00 AM EDT [facility] ([facility]) THERAPEUTIC PX 1/> AREAS EACH 15 MIN EXERCISES 021 12:00:00 AM EDT [facility] ([facility]) APPL MODALITY 1/> AREAS ELEC STIMJ EA 15 MIN 1 12:00:00 AM EDT [facility] ([facility]) THERAPEUTIC PX 1/> AREAS EACH 15 MIN EXERCISES 12:00:00 AM EDT [facility] ([facility] ) THERAPEUTIC PX 1/> AREAS EACH 15 MIN EXERCISES 12:00:00 AM EDT [facility] ([facility] ) APPLICATION MODALITY 1/> AREAS HOT/COLD PACKS 07/18/20 21 12:00:00 AM EDT [facility] ([facility] ) APPLICATION MODALITY 1/> AREAS HOT/COLD PACKS 07/13/20 21 12:00:00 AM EDT [facility] ([facility] ) APPL MODALITY 1/> AREAS ELEC STIMJ EA 15 MIN 1 12:00:00 AM EDT [facility] ([facility] ) THERAPEUTIC PX 1/> AREAS EACH 15 MIN EXERCISES 12:00:00 AM EDT [facility] ([facility] ) THERAPEUTIC PX 1/> AREAS EACH 15 MIN EXERCISES 021 12:00:00 AM EDT [facility] ([facility] ) APPL MODALITY 1/> AREAS ELEC STIMJ EA 15 MIN 1 12:00:00 AM EDT [facility] ([facility] ) THERAPEUTIC PX 1/> AREAS EACH 15 MIN EXERCISES 021 12:00:00 AM EDT [facility] ([facility]) APPLICATION MODALITY 1/> AREAS HOT/COLD PACKS 07/11/20 21 12:00:00 AM EDT [facility] ([facility] ) THERAPEUTIC PX 1/> AREAS EACH 15 MIN EXERCISES 12:00:00 AM EDT [facility] ([facility]) APPLICATION MODALITY 1/> AREAS HOT/COLD PACKS 07/06/20 21 12:00:00 AM EDT [facility] ([facility]) APPL MODALITY 1/> AREAS ELEC STIMJ EA 15 MIN 1 12:00:00 AM EDT [facility] ([facility] ) THERAPEUTIC PX 1/> AREAS EACH 15 MIN EXERCISES 021 12:00:00 AM EDT [facility] ([facility] ) THERAPEUTIC PX 1/> AREAS EACH 15 MIN EXERCISES 021 12:00:00 AM EDT [facility] ([facility]) APPLICATION MODALITY 1/> AREAS HOT/COLD PACKS 07/04/20 21 12:00:00 AM EDT [facility] ([facility]) THERAPEUTIC PX 1/> AREAS EACH 15 MIN EXERCISES 12:00:00 AM EDT [facility] ([facility]) THERAPEUTIC PX 1/> AREAS EACH 15 MIN EXERCISES 12:00:00 AM EDT [facility] ([facility]) MANUAL THERAPY TQS 1/> REGIONS EACH 15 MINUTES 12:00:00 AM EDT [facility] ([facility]) THERAPEUTIC PX 1/> AREAS EACH 15 MIN EXERCISES 021 12:00:00 AM EDT [facility] ([facility]) APPL MODALITY 1/> AREAS ELEC STIMJ EA 15 MIN 12:00:00 AM EDT [facility] ([facility]) APPLICATION MODALITY 1/> AREAS HOT/COLD PACKS 06/30/20 21 12:00:00 AM EDT [facility] ([facility]) THERAPEUTIC PX 1/> AREAS EACH 15 MIN EXERCISES 12:00:00 AM EDT [facility] ([facility]) APPLICATION MODALITY 1/> AREAS HOT/COLD PACKS 06/28/20 21 12:00:00 AM EDT [facility] ([facility]) APPL MODALITY 1/> AREAS ELEC STIMJ EA 15 MIN 12:00:00 AM EDT [facility] ([facility]) THERAPEUTIC PX 1/> AREAS EACH 15 MIN EXERCISES 12:00:00 AM EDT [facility] ([facility]) THERAPEUTIC PX 1/> AREAS EACH 15 MIN EXERCISES 12:00:00 AM EDT [facility] ([facility]) Physical Therapy Eval - Low Complexity 06/26/2021 12:0 0:00 AM EDT [facility] ([facility]) ARTHRS KNE SURG W/MENISCECTOMY MED/LAT W/SHVG 06/22/20 21 12:00:00 AM EDT [facility] ([facility]) OFFICE OUTPATIENT VISIT 25 MINUTES 04/10/2021 12:00:00 AM EDT [facility] ([facility]) OFFICE OUTPATIENT VISIT 15 MINUTES 04/04/2021 12:00:00 AM EDT [facility] ([facility]) MRI Lower Extremity Any Joint 03/24/2021 12:00:00 AM E DT [facility] ([facility] ) OFFICE OUTPATIENT VISIT 15 MINUTES 01/26/2021 12:00:00 AM EST [facility] ([facility]) ARTHROCENTESIS ASPIR&/INJECTION MAJOR JT/BURSA 021 12:00:00 AM EST [facility] ([facility]) ARTHROCENTESIS ASPIR&/INJECTION MAJOR JT/BURSA 021 12:00:00 AM EST [facility] ([facility]) ARTHROCENTESIS ASPIR&/INJECTION MAJOR JT/BURSA 021 12:00:00 AM EST [facility] ([facility]) RADIOLOGIC EXAM KNEE COMPLETE 4/MORE VIEWS 12/15/2020 12:00:00 AM EST [facility] ([facility]) Results ID Date Data Source [id number] 10/24/2021 12:00:00 AM EST [facility] Name Value Range Interpretation Code Description Data Gloria rce(s) Supporting Document(s) SARS-CoV2 Rapid Antigen Positive [facility] This lab was ordered by [facility] [place] and reported by [facility]. ID Date Data Source [id number] 05/25/2021 09:35:00 AM EDT [facility] ([facility]) Name Value Range Interpretation Code Description Data Gloria rce(s) Supporting Document(s) Covid Rapid Testing Laboratory test result [facility] ([facility]) ID Date Data Source [id number] 05/25/2021 12:00:00 AM EDT [facility] Name Value Range Interpretation Code Description Data Gloria rce(s) Supporting Document(s) Covid Rapid Testing Negative [facility] This lab was ordered by [place] and re ported by [facility]. Procedure Social History Code Duration Value Status Description Data Source(s ) Smoking 08/01/2021 12:00:00 AM EDT Patient is a former smoker completed Patient is a former smoker [facility] ([facility]) Vital Signs ID Date Data Source UNK Name Value Range Interpretation Code Description Data Source(s) Body temperature 97.1 [degF] 97.1 [degF] [facility] ([facility]) Body height 63 [in_i] 63 [in_i] [facility] ([facility]) 5'3" Body weight 161.50 [lb_av] 161.50 [lb_av] JACQUELIN Stinson ([facility] ) Body mass index (BMI) [Ratio] 28.6 kg/m2 28.6 k g/m2 JAZMYNE ([facility] ) Body temperature 96.9 [degF] 96.9 [degF] JAZMYNE ([facility] )
[2021-11-02] MEDS ORDERED: ALBUTEROL 90 MCG/ACT 8GM HFA INHALER INH PRN (17:25)
[2021-11-02] MEDS ORDERED: ACETAMINOPHEN TAB 650MG DOSE (2X325MG) PO PRN (17:25)
--- NOTE | 2021-11-02 17:44 | HPEPDOC ---
General Date of Admission Nov 02, 2021 at 16:23 Date of Service: Nov 02, 2021 Chief Complaint The patient is a 51-year-old female admitted with a reason for visit of Covid 19,Hypoxia,Syncope. History of Present Illness Mrs. Cooper is a 51-year-old female who is here with fever, malaise, shortness of breath, and cough. Patient is unvaccinated because she had a reaction to the flu vaccine. Patient's son's girlfriend was Covid positive. Patient's symptoms were started on 10/23/2021. Initially started with malaise, rhinorrhea, postnasal drip, productive cough. [place] through, she started to develop a fever, which broke. She had mild loss of taste and poor appetite. She only eats organic foods and has only tolerated bone broth. In the past 6 days she has been having watery diarrhea. She tells me she can have more than 5 episodes of diarrhea in a day. Denies any history of C. difficile. Today, she was in the bathroom trying to clean herself as she had an accident. She remembers feeling funny, but was hard to describe. The next thing she remembers was that she was on the floor with her significant other calling for help. Patient was brought to the ED for evaluation. While here she had a fever of 101.3. She was tachycardic and tachypneic. Blood pressure was 123/60. She required 3 L of oxygen to maintain saturation. When I saw patient, she had difficulty completing sentences and was gasping in between. She appeared to have some respiratory distress. Lung sounds were diminished. Lactic acid was negative. CRP though was elevated at 7.41. Patient will be admitted for syncope and hypoxia secondary to Covid pneumonia. Home Medications Scheduled PRN Albuterol Sulfate (Albuterol Sulfate Hfa) 8.5 Gm Hfa.aer.ad, 2 PUFFS INH TID PRN for SOB/WHEEZING, (Reported) Allergies Coded Allergies: Influenza Virus Vaccines (Verified Allergy, Unknown, 11/02/21) NSAIDS (Non-Steroidal Anti-Inflamma (Verified Allergy, Unknown, 10/14/20) Penicillins (Verified Allergy, Unknown, 10/14/20) Sulfa (Sulfonamide Antibiotics) (Verified Allergy, Unknown, 10/14/20) latex (Verified Allergy, Unknown, 11/02/21) Past Medical History Medical History 1. History of carpal tunnel status post surgery Surgical History 1. Appendectomy 2. Tonsillectomy 3. Hysterectomy with tubal ligation 4. Oophorectomy 5. Multiple knee and wrist surgeries Family History Father: History of hypertension, CAD status post 2 stents, and prostate issues Mother: History of diabetes mellitus, coronary artery disease status post stent, amputation due to complication of diabetes mellitus Social History * Smoker: former Smoker Alcohol: Denies Drugs: denies A-FIB/CHADSVASC A-FIB History Current/History of A-Fib/PAF?: No Review of Systems Constitutional: Reports: Fever, Malaise Eyes: Denies: Vision change ENT: Reports: Sinus Congestion, Post Nasal Drip, Other Symptoms (Mild loss of taste); Denies: Sore Throat Skin: Denies: Rash Pulmonary: Reports: Dyspnea, Cough (Productive with yellow sputum) Cardiovascular: Denies: Chest Pain Gastrointestinal: Reports: Diarrhea (Watery diarrhea for the past 6 days. Can have up to more than 5 episodes a day); Denies: Abdominal Pain Genitourinary: Denies: Dysuria Hematologic: Denies: Bruising Neurological: Denies: Numbness Psych: Denies: Anxiety, Depression Physical Examination General Exam: Positive: Alert, Cooperative, Mild Distress Eye Exam: Positive: EOMI; Negative: Sclera icteric ENT Exam: Positive: Atraumatic Neck Exam: Positive: Supple Chest Exam: Positive: Diminished Heart Exam: Positive: Tachycardic, Regular Rhythm Abdomen Exam: Positive: Normal bowel sounds, Soft; Negative: Tenderness Extremity Exam: Negative: Edema Neuro Exam: Positive: Normal Speech Psych Exam: Positive: Mental status NL, Mood NL Vital Signs Vital Signs Date Time Temp Pulse Resp B/P (MAP) Pulse Ox O2 Delivery O2 Flow Rate FiO2 11/02/21 17:00 95 22 123/60 (81) 93 11/02/21 14:45 101.3 11/02/21 08:27 Room Air Laboratory Data Labs 24H Laboratory Tests 2 11/02/21 09:31: Prothrombin Time 13.6, Prothromb Time International Ratio 1.00, Activated Partial Thromboplast Time 32.7, Fibrinogen 658H, D-Dimer, Quantitative 1329.57H, Anion Gap 10, Glomerular Filtration Rate > 60.0, Calcium Level 8.2L, Magnesium Level 2.3, Ferritin 348H, Total Bilirubin 0.5, Aspartate Amino Transf (AST/SGOT) 33, Alanine Aminotransferase (ALT/SGPT) 29, Alkaline Phosphatase 82, Lactate Dehydrogenase 418H, C-Reactive Protein, Quantitative 7.41H, Total Protein 6.9, Albumin 3.2, Albumin/Globulin Ratio 0.9L, Human Chorionic Gonadotropin, Qual NEGATIVE 11/02/21 09:32: Immature Granulocyte % (Auto) 1.1, Neutrophils (%) (Auto) 71.7H, Lymphocytes (%) (Auto) 12.2L, Monocytes (%) (Auto) 14.7H, Eosinophils (%) (Auto) 0.1, Basophils (%) (Auto) 0.2, Neutrophils # (Auto) 7.0, Lymphocytes # (Auto) 1.2L, Monocytes # (Auto) 1.4H, Eosinophils # (Auto) 0.0, Basophils # (Auto) 0.0, Nucleated Red Blood Cells % (auto) 0.0, Lactic Acid Level 1.5 11/02/21 09:50: POC Glucose (Misc Panel) 83, POC Sodium (Misc Panel) 136, POC Potassium (Misc Panel) 3.7, POC Chloride (Misc Panel) 100, POC Total CO2 (Misc Panel) 25.0, POC Blood Urea Nitrogen (Misc Panel 12, POC Ionized Calcium (Misc Panel) 4.1L, POC Creatinine (Misc Panel) 0.5L, POC Hematocrit (Misc Panel) 38.0 11/02/21 09:52: POC Troponin I (Misc) 0.01 11/02/21 14:53: POC Troponin I (Misc) 0.00 11/02/21 17:16: CBC/BMP Laboratory Tests 11/02/21 09:31 11/02/21 09:32 Microbiology Microbiology 11/02/21 Blood Culture, Received Pending 11/02/21 Blood Culture, Received Pending Assessment/Plan Mrs. Cooper is a 51-year-old female who is here with fever, malaise, shortness of breath, and cough. Patient is not vaccinated due to reaction to influenza vaccine. Patient had exposure to son's girlfriend who is Covid positive. Since having the Covid, her appetite has been poor and she has been having diarrhea. She may have synopsized due to dehydration versus hypoglycemia versus vasovagal. Otherwise, patient has acute hypoxic respiratory failure requiring 3 L of oxygen. Patient will be given dexamethasone and remdesivir. We will continue albuterol. Antibiotics started, pending procalcitonin results. Plan / VTE VTE Prophylaxis Ordered?: Yes Plan Plan 1. Acute hypoxic respiratory failure secondary to Covid Struggle to complete sentences and tachypneic Requiring 3 L of oxygen Start remdesivir and dexamethasone Levofloxacin day 1 2. Syncope We will rule out cardiac syncope with telemetry and echocardiogram Possibly secondary to hypoxia versus hypoglycemia from poor oral intake versus hypovolemia Cautious with fluid due to acute hypoxic respiratory failure. Since blood pressure is sufficient, will not give fluids but encourage oral intake 3. Diarrhea Most likely from Covid Since watery and more than 3 BMs will check GI panel 4. Poor oral intake Patient has some loss of taste and has a poor appetite Has only tolerated bone broth Otherwise patient tells me that she only eats organic Okay for to bring patient organic meals Okay for patient to eat these meals 5. DVT prophylaxis Patient has allergy to NSAIDs, will not start aspirin Lovenox Disposition: Pending improvement in oxygen saturation LIBERTAD DENSON DO Nov 02, 2021 17:44
--- NOTE | 2021-11-02 20:29 | ECGEPIP ---
[facility] - ED Test Date: 2021-11-02 Pat Name: NAYELI ESPINOSA Department: Room: - Gender: Female [employer] Signal [employer] Operator: : 1970 Requested By: NALDO Tejada Order Number: [id number] Reading MD: Manpreet Guillen Measurements Intervals [place] Rate: 96 P: 49 W[place]: 142 QRS: 11 QRSD: 74 T: 4 QT: 336 QTc: 424 Interpretive Statements Normal sinus rhythm NONSPECIFIC T WAVE ABNORMALITY(S) SIMILAR TO 10/07/21 Electronically Signed on 11-02-2021 20:29:27 EST by Manpreet Guillen
--- NOTE | 2021-11-02 20:33 | ECGEPIP ---
[facility] - ED Test Date: 2021-11-02 Pat Name: NAYELI ESPINOSA Department: Room: - Gender: Female Physician Assistant Psychiatry: : 1970 Requested By: NALDO Tejada Order Number: [id number] Reading MD: Manpreet Guillen Measurements Intervals [place] Rate: 102 P: 39 [place]: 144 QRS: -1 QRSD: 72 T: 4 QT: 334 QTc: 435 Interpretive Statements Sinus tachycardia NONSPECIFIC T WAVE ABNORMALITY(S) SIMILAR TO PRIOR ON SAME DATE Electronically Signed on 11-02-2021 20:33:01 EST by Manpreet Guillen
[2021-11-02] MEDS ORDERED: REMDESIVIR 200 MG in NS 250 ML IV ONE (21:00)
[2021-11-02] MEDS ORDERED: SODIUM CHLORIDE 0.9% INJ 10 ML SYR IV ONE (23:00)
[2021-11-03 07:42] LABS: BASO % 0.3 % (0.0-1.0); HEMATOCRIT 36.7 % (36.0-47.0); HEMOGLOBIN 12.3 g/dl (12.0-15.5); LYMPH # 1.1 10^3/uL (1.5-5.0); LYMPH % 16.8 % (24.0-44.0); MEAN CORPUSCULAR HEMOGLOBIN 28.5 pg (27.0-33.0); MEAN CORPUSCULAR HGB CONC 33.5 g/dl (32.0-36.5); MONO % 15.3 % (2.0-8.0); NEUTROPHILS # 4.3 10^3/uL (1.5-8.5); NEUTROPHILS % 65.2 % (36.0-66.0); PLATELET COUNT, AUTOMATED 303 10^3/uL (150-450); RED BLOOD COUNT 4.32 10^6/uL (4.00-5.40); WHITE BLOOD COUNT 6.5 10^3/uL (4.0-10.0)
[2021-11-03 08:04] LABS: ALT/SGPT 31 U/L (12-78); BILIRUBIN,DIRECT 0.2 MG/DL (0.0-0.2); BILIRUBIN,TOTAL 0.5 MG/DL (0.2-1.0); BLOOD UREA NITROGEN 14 MG/DL (7-18); CALCIUM LEVEL 8.4 MG/DL (8.5-10.1); CARBON DIOXIDE LEVEL 26 MEQ/L (21-32); CHLORIDE LEVEL 107 MEQ/L (98-107); CREATININE FOR GFR 0.55 MG/DL (0.55-1.30); GLOMERULAR FILTRATION RATE > 60.0 (>58); GLUCOSE, FASTING 130 MG/DL (70-100); MAGNESIUM LEVEL 2.5 MG/DL (1.8-2.4); SODIUM LEVEL 140 MEQ/L (136-145); TOTAL PROTEIN 6.5 GM/DL (6.4-8.2)
--- NOTE | 2021-11-03 11:57 | IPNPDOC ---
Subjective Date Seen The patient was seen on 11/03/21. Subjective Chief Complaint/HPI Mrs. Cooper is a 51-year-old female who is here with fever, malaise, shortness of breath, and cough. Patient was seen in the ED since the Covid floor does not have any bed availability. She feels better today compared to yesterday. Has some shortness of breath with movement. Denies any chest pain. She is anxious for home, but her oxygen requirements increased from 3 L to 4 L. Objective Physical Examination General Exam: Positive: Alert, Cooperative, Mild Distress Eye Exam: Positive: EOMI; Negative: Sclera icteric ENT Exam: Positive: Atraumatic Neck Exam: Positive: Supple Chest Exam: Positive: Diminished Heart Exam: Positive: Tachycardic, Regular Rhythm Abdomen Exam: Positive: Normal bowel sounds, Soft; Negative: Tenderness Extremity Exam: Negative: Edema Neuro Exam: Positive: Normal Speech Psych Exam: Positive: Mental status NL, Mood NL Assessment /Plan Assessment Mrs. Cooper is a 51-year-old female who is here with fever, malaise, shortness of breath, and cough. Patient is not vaccinated due to reaction to influenza vaccine. Patient had exposure to son's girlfriend who is Covid positive. Since having the Covid, her appetite has been poor and she has been having diarrhea. She may have synopsized due to dehydration versus hypoglycemia versus vasovagal. Otherwise, patient has acute hypoxic respiratory failure requiring 3 L of oxygen. Patient will be given dexamethasone and remdesivir. We will continue albuterol. Antibiotics started, pending procalcitonin results. Procalcitonin returned negative at less than 0.05. Antibiotics will be discontinued. Plan/VTE VTE Prophylaxis Ordered?: Yes Plan 1. Acute hypoxic respiratory failure secondary to Covid Struggle to complete sentences and tachypneic Requiring 3 L of oxygen on admission. Now requiring 4 L. Continue remdesivir and dexamethasone Antibiotic discontinued due to negative procalcitonin 2. Syncope We will rule out cardiac syncope with telemetry and echocardiogram Possibly secondary to hypoxia versus hypoglycemia from poor oral intake versus hypovolemia Cautious with fluid due to acute hypoxic respiratory failure. Since blood pressure is sufficient, will not give fluids but encourage oral intake 3. Diarrhea Most likely from Covid Since watery and more than 3 BMs will check GI panel 4. Poor oral intake Patient has some loss of taste and has a poor appetite Has only tolerated bone broth Otherwise patient tells me that she only eats organic Okay for to bring patient organic meals Okay for patient to eat these meals 5. DVT prophylaxis Patient has allergy to NSAIDs, will not start aspirin Lovenox Disposition: Pending improvement in oxygen saturation VS, I&O, 24H, Fishbone Vital Signs/I&O Vital Signs Date Time Temp Pulse Resp B/P (MAP) Pulse Ox O2 Delivery O2 Flow Rate FiO2 11/03/21 08:03 97.1 82 123/64 (83) 94 Nasal Cannula 4.0 11/03/21 05:45 18 I&O- Last 24 Hours up to 6 AM 11/03/21 06:00 Intake Total 290 ml Balance 290 ml Laboratory Data 24H LABS Laboratory Tests 2 11/02/21 14:53: POC Troponin I (Misc) 0.00 11/02/21 17:16: Total Creatine Kinase 55, CN-Ogi-E-Type Natriuretic Peptide 90 11/03/21 06:56: Immature Granulocyte % (Auto) 2.4, Neutrophils (%) (Auto) 65.2, Lymphocytes (%) (Auto) 16.8L, Monocytes (%) (Auto) 15.3H, Eosinophils (%) (Auto) 0.0, Basophils (%) (Auto) 0.3, Neutrophils # (Auto) 4.3, Lymphocytes # (Auto) 1.1L, Monocytes # (Auto) 1.0H, Eosinophils # (Auto) 0.0, Basophils # (Auto) 0.0, Nucleated Red Blood Cells % (auto) 0.0, Anion Gap 7L, Glomerular Filtration Rate > 60.0, Calcium Level 8.4L, Magnesium Level 2.5H, Total Bilirubin 0.5, Direct Bilirubin 0.2, Aspartate Amino Transf (AST/SGOT) 22, Alanine Aminotransferase (ALT/SGPT) 31, Alkaline Phosphatase 78, Total Protein 6.5, Albumin 3.0L, Albumin/Globulin Ratio 0.9L CBC/BMP Laboratory Tests 11/03/21 06:56 Microbiology Microbiology 11/02/21 Blood Culture - Preliminary, Resulted No growth after 24 hours . All specim... 11/02/21 Blood Culture - Preliminary, Resulted No growth after 24 hours . All specim... LIBERTAD DENSON DO Nov 03, 2021 11:57
[2021-11-03] MEDS: ENOXAPARIN 40MG/0.4ML SYRINGE (J1650 PER 10MG) SC SCH (12:18)
[2021-11-03] MEDS: dexameTHASONE 4 MG/ML 1ML VIAL (J1100 PER 1MG) IV SCH (12:19)
[2021-11-03 15:14] LABS: APPEARANCE, URINE HAZY (CLEAR); BACTERIA, URINE AUTO NEGATIVE (NEGATIVE); BILIRUBIN, URINE AUTO NEGATIVE (NEGATIVE); BLOOD, URINE BLOOD NEGATIVE (NEGATIVE); COLOR, URINE YELLOW (YELLOW); GLUCOSE, URINE (UA) AUTO 2+ mg/dL (NEGATIVE); KETONE, URINE AUTO TRACE mg/dL (NEGATIVE); LEUKOCYTE ESTERASE, URINE AUTO NEGATIVE (NEGATIVE); MUCUS, URINE SMALL (NEGATIVE); NITRITE, URINE AUTO NEGATIVE (NEGATIVE); PROTEIN, URINE AUTO NEGATIVE (NEGATIVE); RBC, URINE AUTO 1 /HPF (0-3); SPECIFIC GRAVITY URINE AUTO 1.023 (1.002-1.035); SQUAMOUS EPITHELIAL CELL UR AU 5 /HPF (0-6); UROBILINOGEN, URINE AUTO 0.2 mg/dL (0.0-2.0); WBC, URINE AUTO 1 /HPF (0-3)
[2021-11-03] MEDS ORDERED: LevoFLOXacin IV 750 MG in IV 1 EA IV SCH (17:00)
[2021-11-03 18:33] VITALS: O2SAT 93
[2021-11-03 18:35] VITALS: BP 122/61
[2021-11-03 19:39] LABS: INFLUENZA A AMPLIFICATION NEGATIVE (NEGATIVE); INFLUENZA B AMPLIFICATION NEGATIVE (NEGATIVE)
[2021-11-03 20:00] VITALS: BP 107/55; O2SAT 95
[2021-11-03] MEDS ORDERED: REMDESIVIR 100 MG in NS 250 ML IV SCH (21:00)
[2021-11-03] MEDS ORDERED: SODIUM CHLORIDE 0.9% INJ 10 ML SYR IV SCH (22:00)
[2021-11-04] VITALS: O2SAT 94
[2021-11-04 04:00] VITALS: BP 107/55; O2SAT 94
[2021-11-04 08:00] VITALS: O2SAT 98
[2021-11-04 08:05] VITALS: O2SAT 94
[2021-11-04 08:25] LABS: BASO % 0.2 % (0.0-1.0); HEMATOCRIT 35.4 % (36.0-47.0); HEMOGLOBIN 11.7 g/dl (12.0-15.5); LYMPH # 1.4 10^3/uL (1.5-5.0); LYMPH % 15.5 % (24.0-44.0); MEAN CORPUSCULAR HEMOGLOBIN 28.5 pg (27.0-33.0); MEAN CORPUSCULAR HGB CONC 33.1 g/dl (32.0-36.5); MEAN CORPUSCULAR VOLUME 86.3 fl (80.0-96.0); MONO # 0.6 10^3/uL (0.0-0.8); MONO % 6.2 % (2.0-8.0); NEUTROPHILS % 74.7 % (36.0-66.0); PLATELET COUNT, AUTOMATED 370 10^3/uL (150-450); WHITE BLOOD COUNT 9.3 10^3/uL (4.0-10.0)
[2021-11-04 08:41] LABS: PARTIAL THROMBOPLASTIN TIME 30.7 SECONDS (25.9-37.0)
[2021-11-04 08:46] LABS: INR 1.14
[2021-11-04 08:57] LABS: ALBUMIN 2.8 GM/DL (3.2-5.2); ALT/SGPT 31 U/L (12-78); BILIRUBIN,DIRECT 0.2 MG/DL (0.0-0.2); BILIRUBIN,TOTAL 0.4 MG/DL (0.2-1.0); BLOOD UREA NITROGEN 14 MG/DL (7-18); CALCIUM LEVEL 8.2 MG/DL (8.5-10.1); CARBON DIOXIDE LEVEL 23 MEQ/L (21-32); CHLORIDE LEVEL 105 MEQ/L (98-107); CREATININE FOR GFR 0.73 MG/DL (0.55-1.30); FERRITIN 469 NG/ML (8-252); GLOMERULAR FILTRATION RATE > 60.0 (>58); GLUCOSE, FASTING 234 MG/DL (70-100); LDH LACTATE DEHYDROGENASE 291 U/L (84-246); MAGNESIUM LEVEL 2.5 MG/DL (1.8-2.4); NT-PRO BNP 212 PG/ML (<125); POTASSIUM SERUM 3.5 MEQ/L (3.5-5.1); SODIUM LEVEL 139 MEQ/L (136-145)
[2021-11-04] MEDS: ENOXAPARIN 40MG/0.4ML SYRINGE (J1650 PER 10MG) SC SCH (09:06)
[2021-11-04] MEDS: dexameTHASONE 4 MG/ML 1ML VIAL (J1100 PER 1MG) IV SCH (09:06)
[2021-11-04] MEDS ORDERED: PRED10TA2 PO (11:38)
[2021-11-04 12:08] VITALS: O2SAT 96
[2021-11-04 16:11] LABS: MYCOPLASMA PNEUMONIAE IgG <100 U/mL (0-99); MYCOPLASMA PNEUMONIAE IgM <770 U/mL (0-769)
--- NOTE | 2021-11-04 18:25 | DS.PDOC ---
Discharge Summary General Date of Admission Nov 02, 2021 at 16:23 Date of Discharge November 04, 2021 Discharge Summary PROCEDURES PERFORMED DURING STAY: None ADMITTING DIAGNOSES: 1. Acute hypoxic respiratory failure secondary to Covid 2. Syncope 3. Diarrhea (negative GI panel) 4. Poor oral intake DISCHARGE DIAGNOSES: 1. Acute hypoxic respiratory failure secondary to Covid 2. Syncope 3. Diarrhea (negative GI panel) 4. Poor oral intake COMPLICATIONS/CHIEF COMPLAINT: Covid 19,Hypoxia,Syncope. HISTORY OF PRESENT ILLNESS: Mrs. Cooper is a 51-year-old female who is here with fever, malaise, shortness of breath, and cough. Patient is unvaccinated because she had a reaction to the flu vaccine. Patient's son's girlfriend was Covid positive. Patient's symptoms were started on 10/23/2021. Initially started with malaise, rhinorrhea, postnasal drip, productive cough. Assisted through, she started to develop a fever, which broke. She had mild loss of taste and poor appetite. She only eats organic foods and has only tolerated bone broth. In the past 6 days she has been having watery diarrhea. She tells me she can have more than 5 episodes of diarrhea in a day. Denies any history of C. difficile. Today, she was in the bathroom trying to clean herself as she had an accident. She remembers feeling funny, but was hard to describe. The next thing she remembers was that she was on the floor with her significant other calling for help. Patient was brought to the ED for evaluation. While here she had a fever of 101.3. She was tachycardic and tachypneic. Blood pressure was 123/60. She required 3 L of oxygen to maintain saturation. When I saw patient, she had difficulty completing sentences and was gasping in between. She appeared to have some respiratory distress. Lung sounds were diminished. Lactic acid was negative. CRP though was elevated at 7.41. Patient will be admitted for syncope and hypoxia secondary to Covid pneumonia. HOSPITAL COURSE: Patient was given remdesivir and dexamethasone. Procalcitonin was negative and antibiotics were not started. Patient did well during hospitalization. No events on telemetry. Patient syncope may be due to dehydration versus hypoglycemia versus vasovagal. Patient GI panel did return back negative. When I saw patient this morning, she was feeling well. She is breathing well at room air. Denies any chest pain or shortness of breath. She was able to ambulate in the room without becoming hypoxic. She felt ready for home and was subsequently discharged home today. DISCHARGE MEDICATIONS: Please see below. ALLERGIES: Please see below. PHYSICAL EXAMINATION ON DISCHARGE: VITAL SIGNS: Please see below. GENERAL: Comfortable, in no apparent distress. HEENT: Head normocephalic/atraumatic, EOMI, sclera clear. NECK: Supple, no JVD. RESPIRATORY: Lungs clear to auscultation bilaterally, no rales, wheeze or rho nchi. CARDIOVASCULAR: Regular rate and rhythm. ABDOMEN: Soft, nontender, no guarding or rebound tenderness. Normal bowel sounds. MUSCLE SKELETAL: Muscle strength 5/5 in all extremities. NEUROLOGICAL: CN 312 grossly intact, no focal deficits noted. PSYCHOLOGICAL: Normal mood and affect LABORATORY DATA: Please see below. IMAGING: Radiologist interpretation CT angio chest No CT evidence of pulmonary embolism. Diffuse bilateral infiltrates. PROGNOSIS: Good ACTIVITY: As tolerated. DIET: As tolerated DISCHARGE PLAN: Patient to return home. Complete steroid taper as instructed DISPOSITION: 01 Home, Self-Care. DISCHARGE INSTRUCTIONS: 1. Follow-up with PCP within a week. DISCHARGE CONDITION: Stable. Total time spent on discharge planning, discharge summary, and medication reconciliation: 45 min Vital Signs/I&Os Vital Signs Date Time Temp Pulse Resp B/P (MAP) Pulse Ox O2 Delivery O2 Flow Rate FiO2 11/04/21 12:08 96 Room Air 11/04/21 08:00 3.0 11/04/21 04:00 97.1 74 17 107/55 (72) I&O- Last 24 Hours up to 6 AM 11/04/21 06:00 Intake Total 1045 ml Output Total 925 ml Balance 120 ml Laboratory Data Labs 24H Laboratory Tests 2 11/03/21 18:31: Influenza Type A (RT-PCR) NEGATIVE, Influenza Type B (RT-PCR) NEGATIVE 11/04/21 06:05: Immature Granulocyte % (Auto) 3.4H, Neutrophils (%) (Auto) 74.7H, Lymphocytes (%) (Auto) 15.5L, Monocytes (%) (Auto) 6.2, Eosinophils (%) (Auto) 0.0, Basophils (%) (Auto) 0.2, Neutrophils # (Auto) 7.0, Lymphocytes # (Auto) 1.4L, Monocytes # (Auto) 0.6, Eosinophils # (Auto) 0.0, Basophils # (Auto) 0.0, Nucleated Red Blood Cells % (auto) 0.0, Prothrombin Time 15.0H, Prothromb Time International Ratio 1.14, Activated Partial Thromboplast Time 30.7, Fibrinogen 580H, Anion Gap 11, Glomerular Filtration Rate > 60.0, Calcium Level 8.2L, Magnesium Level 2.5H, Ferritin 469H, Total Bilirubin 0.4, Direct Bilirubin 0.2, Aspartate Amino Transf (AST/SGOT) 20, Alanine Aminotransferase (ALT/SGPT) 31, Alkaline Phosphatase 74, Lactate Dehydrogenase 291H, Total Creatine Kinase 33, Troponin I High Sensitivity 9.0, VU-Plv-A-Type Natriuretic Peptide 212H, Total Protein 6.0L, Albumin 2.8L, Albumin/Globulin Ratio 0.9L, Procalcitonin <0.05 CBC/BMP Laboratory Tests 11/04/21 06:05 Microbiology Microbiology 11/03/21 Gastrointestinal Tract Panel (PCR) - Final, Complete 11/02/21 Blood Culture - Preliminary, Resulted No Growth after 48 hours. All Specime... 11/02/21 Blood Culture - Preliminary, Resulted No Growth after 48 hours. All Specime... Discharge Medications Scheduled Prednisone (Prednisone) 10 Mg Tablet, 10 MG PO TAPER Take 4 tabs daily x 3 days, then 3 tabs daily x 3 days, then 2 tabs daily x 3 days, then 1 tab daily x 3 days and stop Scheduled PRN Albuterol Sulfate (Albuterol Sulfate Hfa) 8.5 Gm Hfa.aer.ad, 2 PUFFS INH TID PRN for SOB/WHEEZING, (Reported) Allergies Coded Allergies: Influenza Virus Vaccines (Verified Allergy, Unknown, 11/02/21) NSAIDS (Non-Steroidal Anti-Inflamma (Verified Allergy, Unknown, 10/14/20) Penicillins (Verified Allergy, Unknown, 10/14/20) Sulfa (Sulfonamide Antibiotics) (Verified Allergy, Unknown, 10/14/20) latex (Verified Allergy, Unknown, 11/02/21) LIBERTAD DENSON DO Nov 04, 2021 18:25
[2021-11-07 15:10] LABS: BODY FLUID CULTURE Not indicated. (.); ORGANISM ID Not indicated. (.); SPECIMEN SOURCE Urine (.); URINE STREP PNEUMONIAE ANTIGEN Negative (Negative)
== END 2021-11-04 13:07 | disposition home or self-care (01) | DRG 137 ==
LOC: M ED 08:27 → M ED INP 16:23 → M 4MAIN 11-03 17:56
PROVIDERS: ADMIT Internal Medicine; ATTEND Internal Medicine
PROC: XW033E5 Introduction of Remdesivir Anti-infective into Peripheral Vein, Percutaneous Approach, New Technology Group 5 (ICD-10-PCS; principal; 2021-11-02)
PROC: 3E0333Z Introduction of Anti-inflammatory into Peripheral Vein, Percutaneous Approach (ICD-10-PCS; 2021-11-02)
DX: U07.1 COVID-19 (principal); J96.01 Acute respiratory failure with hypoxia; J12.82 Pneumonia due to coronavirus disease 2019; R55 Syncope and collapse; R19.7 Diarrhea, unspecified; R63.0 Anorexia; R43.8 Other disturbances of smell and taste; Z90.49 Acquired absence of other specified parts of digestive tract; Z87.891 Personal history of nicotine dependence; Z88.6 Allergy status to analgesic agent; Z88.7 Allergy status to serum and vaccine; Z88.2 Allergy status to sulfonamides; Z91.040 Latex allergy status

== ENCOUNTER → 2022-10-27 | Outpatient (REF) | payer BC ==
[~2022-10-27] MED LIST changes: +ALBU8.5H INH; +PRED10TA2 PO
== END ==
LOC: M LAB REF 10:20
PROVIDERS: ATTEND Physician Assistant Medical
DX: J02.9 Acute pharyngitis, unspecified (principal)

== ENCOUNTER 2024-08-27 08:43 | Emergency (ER) | payer BC ==
[~2024-08-27] VITALS: Ht 160 cm; Wt 73.9 kg
[2024-08-27 09:29] LABS: BASO % 0.3 % (0.0-1.0); EOS # 0.1 10^3/uL (0.0-0.5); EOS % 0.8 % (0.0-3.0); HEMATOCRIT 39.8 % (36.0-47.0); HEMOGLOBIN 13.8 g/dl (12.0-15.5); LYMPH # 2.4 10^3/uL (1.5-5.0); LYMPH % 17.3 % (24.0-44.0); MEAN CORPUSCULAR HEMOGLOBIN 30.1 pg (27.0-33.0); MEAN CORPUSCULAR HGB CONC 34.7 g/dl (32.0-36.5); MEAN CORPUSCULAR VOLUME 86.7 fl (80.0-96.0); MONO # 1.2 10^3/uL (0.0-0.8); MONO % 8.6 % (2.0-8.0); NEUTROPHILS % 72.3 % (36.0-66.0); PLATELET COUNT, AUTOMATED 293 10^3/uL (150-450); RED BLOOD COUNT 4.59 10^6/uL (4.00-5.40); WHITE BLOOD COUNT 13.8 10^3/uL (4.0-10.0)
[2024-08-27 09:51] LABS: PROTHROMBIN TIME 12.9 SECONDS (12.5-14.5)
[2024-08-27 10:09] LABS: LIPASE 47 U/L (12-53)
[2024-08-27 10:11] LABS: ALBUMIN 3.8 G/DL (3.2-5.2); ALKALINE PHOSPHATASE 94 U/L (46-116); ALT/SGPT 17 U/L (7.0-40); AMYLASE 66 U/L (30-118); AST/SGOT 9 U/L (<34); BILIRUBIN,DIRECT 0.1 MG/DL (<0.4); BILIRUBIN,TOTAL 0.6 MG/DL (0.3-1.2); BLOOD UREA NITROGEN 15 MG/DL (9-23); CALCIUM LEVEL 9.1 MG/DL (8.5-10.1); CARBON DIOXIDE LEVEL 24 MMOL/L (20-31); CHLORIDE LEVEL 108 MMOL/L (98-107); CREATININE FOR GFR 0.64 MG/DL (0.55-1.30); GLOMERULAR FILTRATION RATE > 60.0 (>51); GLUCOSE, FASTING 101 MG/DL (60-100); POTASSIUM SERUM 4.2 MMOL/L (3.5-5.1); SODIUM LEVEL 138 MMOL/L (136-145); TOTAL PROTEIN 6.6 G/DL (5.7-8.2)
[2024-08-27] MEDS ORDERED: ISOVUE-370 76% 100ML VIAL As Ordered ONE (11:09)
[2024-08-27] MEDS: metroNIDAZOLE (FLAGYL) 500MG TABLET PO ONE (12:49)
[2024-08-27] MEDS: CIPROFLOXACIN 500MG TABLET PO ONE (12:49)
[2024-08-27] MEDS ORDERED: METR-265 PO (13:08)
[2024-08-27] MEDS ORDERED: CIPR-249 PO (13:08)
[2024-08-27 13:18] VITALS: BP 123/58; TEMP 97; O2SAT 98
== END 2024-08-27 13:30 | disposition home or self-care (01) ==
LOC: M ED 08:43
DX: K57.32 Diverticulitis of large intestine without perforation or abscess without bleeding (principal); N28.1 Cyst of kidney, acquired; N83.291 Other ovarian cyst, right side; K58.9 Irritable bowel syndrome, unspecified; Z88.0 Allergy status to penicillin; Z88.2 Allergy status to sulfonamides; Z88.7 Allergy status to serum and vaccine; Z91.040 Latex allergy status; Z79.2 Long term (current) use of antibiotics; Z79.899 Other long term (current) drug therapy
CPT/HCPCS: 36415; 74177; 80048; 80076; 82150; 83605; 83690; 85025; 85610; 85730; 99284; Q9967

== ENCOUNTER 2024-08-29 15:57 | Emergency (ER) | payer BC ==
[~2024-08-29] VITALS: Ht 160 cm; Wt 72.3 kg
[~2024-08-29 15:57] MED LIST changes: +CIPR-249 PO; +METR-265 PO
[2024-08-29] MEDS ORDERED: ACET-683 PO (16:07)
[2024-08-29] MEDS: MORPHINE 2 MG/ML 1ML VIAL IV ONE (19:18)
[2024-08-29] MEDS: NS 1,000 ML IV ONE (19:18)
[2024-08-29 19:37] LABS: BASO % 0.3 % (0.0-1.0); EOS # 0.2 10^3/uL (0.0-0.5); EOS % 1.8 % (0.0-3.0); HEMATOCRIT 40.2 % (36.0-47.0); HEMOGLOBIN 13.4 g/dl (12.0-15.5); LYMPH # 1.9 10^3/uL (1.5-5.0); LYMPH % 17.7 % (24.0-44.0); MEAN CORPUSCULAR HEMOGLOBIN 29.6 pg (27.0-33.0); MEAN CORPUSCULAR HGB CONC 33.3 g/dl (32.0-36.5); MEAN CORPUSCULAR VOLUME 88.9 fl (80.0-96.0); MONO # 0.9 10^3/uL (0.0-0.8); MONO % 8.8 % (2.0-8.0); NEUTROPHILS # 7.5 10^3/uL (1.5-8.5); NEUTROPHILS % 70.8 % (36.0-66.0); PLATELET COUNT, AUTOMATED 301 10^3/uL (150-450); RED BLOOD COUNT 4.52 10^6/uL (4.00-5.40); WHITE BLOOD COUNT 10.6 10^3/uL (4.0-10.0)
[2024-08-29 19:56] LABS: ALBUMIN 3.8 G/DL (3.2-5.2); ALKALINE PHOSPHATASE 91 U/L (46-116); ALT/SGPT 15 U/L (7.0-40); AST/SGOT 18 U/L (<34); BILIRUBIN,TOTAL 0.5 MG/DL (0.3-1.2); BLOOD UREA NITROGEN 12 MG/DL (9-23); CARBON DIOXIDE LEVEL 25 MMOL/L (20-31); CHLORIDE LEVEL 107 MMOL/L (98-107); CREATININE FOR GFR 0.57 MG/DL (0.55-1.30); GLOMERULAR FILTRATION RATE > 60.0 (>51); GLUCOSE, FASTING 88 MG/DL (60-100); POTASSIUM SERUM 4.5 MMOL/L (3.5-5.1); SODIUM LEVEL 139 MMOL/L (136-145); TOTAL PROTEIN 6.8 G/DL (5.7-8.2)
[2024-08-29 21:02] VITALS: BP 133/68; TEMP 97.2; O2SAT 99
== END 2024-08-29 21:15 | disposition home or self-care (01) ==
LOC: M ED 15:57
DX: K57.92 Diverticulitis of intestine, part unspecified, without perforation or abscess without bleeding (principal); Z88.0 Allergy status to penicillin; Z88.2 Allergy status to sulfonamides; Z88.7 Allergy status to serum and vaccine; Z88.8 Allergy status to other drugs, medicaments and biological substances; Z91.040 Latex allergy status; Z79.1 Long term (current) use of non-steroidal anti-inflammatories (NSAID); Z79.2 Long term (current) use of antibiotics

== ENCOUNTER 2025-04-18 11:11 | Emergency (ER) | payer BC ==
[~2025-04-18] VITALS: Ht 160 cm; Wt 71.0 kg
[~2025-04-18 11:11] MED LIST changes: +ACET-683 PO; -CYCL5TAB PO; +CYCL5TAB4 PO; +LIDO1ADH93 TOP; -LIDO5DIS41 TOP
[2025-04-18 11:25] VITALS: BP 173/72; TEMP 98.3; O2SAT 98
[2025-04-18 13:17] LABS: BASO % 0.4 % (0.0-1.0); EOS # 0.2 10^3/uL (0.0-0.5); EOS % 1.8 % (0.0-3.0); HEMATOCRIT 41.7 % (36.0-47.0); HEMOGLOBIN 14.2 g/dl (12.0-15.5); LYMPH # 2.7 10^3/uL (1.5-5.0); LYMPH % 32.6 % (24.0-44.0); MEAN CORPUSCULAR HEMOGLOBIN 29.6 pg (27.0-33.0); MEAN CORPUSCULAR HGB CONC 34.1 g/dl (32.0-36.5); MEAN CORPUSCULAR VOLUME 87.1 fl (80.0-96.0); MONO # 0.7 10^3/uL (0.0-0.8); NEUTROPHILS # 4.6 10^3/uL (1.5-8.5); NEUTROPHILS % 55.8 % (36.0-66.0); PLATELET COUNT, AUTOMATED 324 10^3/uL (150-450); RED BLOOD COUNT 4.79 10^6/uL (4.00-5.40); WHITE BLOOD COUNT 8.2 10^3/uL (4.0-10.0)
[2025-04-18 13:24] LABS: KETONE, URINE AUTO RFX NEGATIVE (NEGATIVE); LEUKOCYTE ESTERASE UR AUTO RFX NEGATIVE (NEGATIVE); NITRITE, URINE AUTO RFX NEGATIVE (NEGATIVE); RBC, URINE AUTO RFX 1 /HPF (0-3); SQUAM EPITHELIAL CELL UR AURFX 5 /HPF (0-6); WBC, URINE AUTO RFX 4 /HPF (0-3)
[2025-04-18 13:44] LABS: CK-MB VALUE MASS 1.5 NG/ML (<3.6)
[2025-04-18 13:45] LABS: BLOOD UREA NITROGEN 20 MG/DL (9-23); CALCIUM LEVEL 9.4 MG/DL (8.5-10.1); CARBON DIOXIDE LEVEL 26 MMOL/L (20-31); CHLORIDE LEVEL 106 MMOL/L (98-107); CPK CREATINE PHOSPHOKINASE 87 U/L (34-145); CPK CREATINE PHOSPHOKINASE 93 U/L (34-145); GLOMERULAR FILTRATION RATE > 90.0 (>51); GLUCOSE, FASTING 89 MG/DL (60-100); MB/CK RELATIVE INDEX 1.72 (< OR =4); POTASSIUM SERUM 4.3 MMOL/L (3.5-5.1); SODIUM LEVEL 140 MMOL/L (136-145)
== END 2025-04-18 14:06 | disposition home or self-care (01) ==
LOC: M ED 11:11
DX: T75.4XXA Electrocution, initial encounter (principal); F10.10 Alcohol abuse, uncomplicated; Z87.891 Personal history of nicotine dependence; Z88.0 Allergy status to penicillin; Z88.2 Allergy status to sulfonamides; Z88.6 Allergy status to analgesic agent; Z88.7 Allergy status to serum and vaccine; Z79.1 Long term (current) use of non-steroidal anti-inflammatories (NSAID); Z79.2 Long term (current) use of antibiotics; Z79.899 Other long term (current) drug therapy